=== PATIENT | female | born 1950 | race Caucasian/White ===

== ENCOUNTER 2020-03-11 05:16 | Emergency (ER) | payer MEDICARE, SELFPAY ==
[2020-03-11 05:42] VITALS: BP 110/79; PULSE 111; RESP 20; TEMP 37; O2SAT 96; BMI 23.2
--- NOTE | 2020-03-11 05:52 | XR_ITS ---
EXAMINATION: XR ANKLE, RIGHT XR FOOT, RIGHT CLINICAL INFORMATION: Pain and swelling, twisting injury COMPARISON: 11/02/2018 TECHNIQUE: 3 views of the right ankle. 3 views of the right foot. FINDINGS: Alignment throughout the ankle and foot is anatomic. No acute fracture is seen. No significant focal soft tissue abnormality identified. XR/XR ankle RT min 3V IMPRESSION: No acute findings identified in the right ankle or foot.
--- NOTE | 2020-03-11 05:52 | XR_ITS ---
EXAMINATION: XR ANKLE, RIGHT XR FOOT, RIGHT CLINICAL INFORMATION: Pain and swelling, twisting injury COMPARISON: 11/02/2018 TECHNIQUE: 3 views of the right ankle. 3 views of the right foot. FINDINGS: Alignment throughout the ankle and foot is anatomic. No acute fracture is seen. No significant focal soft tissue abnormality identified. XR/XR foot RT min 3V IMPRESSION: No acute findings identified in the right ankle or foot.
[2020-03-11 06:00] VITALS: BP 117/76; PULSE 104; RESP 16; O2SAT 95
--- NOTE | 2020-03-11 06:21 | ED_ITS ---
HPI - Extremity Injury (Lower) General Chief Complaint: Extremity Injury, Lower Stated Complaint: FOOT PAIN - RIGHT Time Seen by Provider: 03/11/20 05:52 Source: patient Mode of arrival: ambulatory Limitations: no limitations History of Present Illness HPI Narrative: 69-year-old female presented with right foot / ankle pain, patient twisted her right ankle about 2 weeks ago, pain is constant described it as dull aching pain, described as moderate pain, worsening with ambulation and bearing weight, relieved by rest, patient has no radiation, no other symptoms with the pain. Related Data Allergies Allergy/AdvReac Type Severity Reaction Status Date / Time prednisone [PREDNISONE] Allergy Mild HIVES Unverified 02/03/20 14:50 tramadol [TRAMADOL] Allergy Mild HIVES Unverified 02/03/20 14:50 penicillin G Allergy Unknown Verified 12/14/18 00:00 Penicillins [PENICILLINS] Allergy Unknown RASH Unverified 02/03/20 14:50 methylprednisolone AdvReac Unknown VOMITING Unverified 02/03/20 14:50 [METHYLPREDNISOLONE] Review of Systems Review of Systems: all other systems are reviewed and are negative Constitutional: Reports as per HPI and Reports no additional constitutional complaints Eyes: Reports as per HPI and Reports no additional eye complaints Reports system reviewed and no additional complaints, except as documented Cardiovascular: Reports as per HPI and Reports no additional cardiovascular complaints Respiratory: Reports as per HPI and Reports no additional respiratory complaints Gastrointestinal: Reports as per HPI and Reports no additional gastrointestinal complaints Genitourinary: Reports no additional female genitourinary complaints Musculoskeletal: Reports no additional musculoskeletal complaints Skin/Breast: Reports system reviewed and no additional complaints, except as docu Psychiatric: Reports no additional psychiatric complaints Endocrine: Reports no additional endocrine complaints Hematologic/Lymphatic: Reports no additional hematologic/lymphatic complaints Allergic/Immunologic: Reports no additional allergic/immunologic complaints Reports system reviewed and no additional complaints, except as documented and Reports Abnormal speech present [facility] Past Medical History Medical History (Updated 03/11/20 @ 06:38 by aRlph Mclean MD) Anxiety Depression Hx of herpes zoster virus Non-Hodgkin lymphoma in remission OCD (obsessive compulsive disorder) PTSD (post-traumatic stress disorder) Torn rotator cuff Social History Social History Advance Directives: No Advance Directives Information Provided: No Physical Exam Vital Signs: Vital Signs: Vital Signs Temp Pulse Resp BP Pulse Ox 10/24/20 05:42 98.6 F 111 H 20 110/79 96 Body Mass Index 23.2 vital signs have been reviewed as normal and appeared to be correct. Blood pressure normal. tachycardia . Respiration rate normal. Temperature normal. Oxygen saturation normal. Appearance: Alert. Oriented X3. No acute distress. Head: Normal external exam. Normocephalic. Atraumatic. No Parada signs noted. No raccoon eyes noted Eyes: PERRLA. EOMI. Conjunctiva and sclera normal. Eyelids normal. ENT: EAC normal. TM's Normal. Pharynx normal. Uvula midline. Moist mucous membranes. No trismus noted. No drooling noted. No muffled voice noted. Neck: Normal inspection. Neck supple. FROM. No adenopathy. Thyroid Normal. No meningeal signs. No neck mass noted. CVS: Normal heart rate and rhythm. Heart sound normal. No murmurs noted. Pulses normal throughout. Respiratory: No respiratory distress. Painless inspiration. Breath sounds normal. No wheezes/rales/rhonchi noted. Chest nontender. No accessory muscle usage noted or decreased air movement noted. Abdomen: Soft and nontender. Bowel sounds normal in all 4 quadrants. No distention noted. No organomegaly noted. No visible injury noted. Back: No CVA tenderness. Full range of motion noted. Skin: Skin warm and dry. Normal skin color. Normal skin turgor. No rashes/lesions/lacerations noted. Extremities: right leg/ankle exam normal neurovascular exam, slight tenderness over the lateral malleolus, mild swelling over the lateral malleolus. Neuro: Oriented X 3. No motor deficit. No sensory deficit. Reflexes normal. Course Course Course Narrative: Two weeks of right ankle/ foot pain after twisting the ankle. Get x-ray. MDM - Extremity Injury (Lower) [facility] Narrative Medical decision making narrative: Assessment and plan. Right foot/ankle pain for 2 weeks after twisting the foot, negative x-ray for acute injury. Will discharge home to follow with PCP apply ice, NSAIDs if needed. Imaging Data Right ankle /foot x-ray : My impression: no acute pathology. Discharge Plan Discharge Clinical Impression: Ankle sprain and strain Patient Disposition: Home, Self-Care Instructions: Ankle Sprain (ED) Referrals: Terrie Boyer MD [Primary Care Provider] - 2 days Chris Kaba MD [Physician] - 10 days
== END 2020-03-11 07:06 | disposition home or self-care (01) ==
PROVIDERS: Emergency Provider Emergency Medicine; PCP Family Medicine
DX: S93.401A Sprain of unspecified ligament of right ankle, initial encounter (principal); M79.671 Pain in right foot; X50.1XXA Overexertion from prolonged static or awkward postures, initial encounter; Y93.01 Activity, walking, marching and hiking; Y92.009 Unspecified place in unspecified non-institutional (private) residence as the place of occurrence of the external cause
CPT/HCPCS: 73610; 73630; 99283

== ENCOUNTER 2020-12-20 06:31 | Outpatient (REF) | payer MEDICARE, SELFPAY ==
--- NOTE | ~2020-12-20 | XR_ITS ---
EXAMINATION: XR HIP, RIGHT CLINICAL INFORMATION: Unilateral primary osteoarthritis right hip. COMPARISON: None TECHNIQUE: Two views of the right hip. AP view pelvis. FINDINGS: AP view pelvis and right hip: There is severe loss of right hip joint space with deformity of right femoral head almost absorbed from osteonecrosis. There is secondary degenerative osteoarthritis and spurring. No fracture or dislocation seen involving the pelvis or the hip joints. The soft tissues are normal. 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 There is secondary degenerative osteoarthritis and spurring. The left hip joint space and SI joints are normal.
== END 2020-12-20 06:32 | disposition home or self-care (01) ==
LOC: HO.XRAY 06:31
PROVIDERS: Visit Provider Physical Medicine & Rehabilitation
DX: M16.11 Unilateral primary osteoarthritis, right hip (principal)
CPT/HCPCS: 73502

== ENCOUNTER 2021-11-17 10:46 | Inpatient (IN) | payer OTHER, SELFPAY ==
--- NOTE | ~2021-11-17 | XR_ITS ---
EXAMINATION: XR RIBS, LEFT CLINICAL INFORMATION: Left rib pain status post injury. COMPARISON: Chest radiographs dated 05/02/2019. TECHNIQUE: 3 views of the left ribs were obtained. A skin marker was placed overlying of the inferior left ribs. FINDINGS: Lungs are clear. No consolidation, pneumothorax, or pleural effusion. The cardiomediastinal silhouette and pulmonary vasculature are normal. Osseous structures are unremarkable. Ribs are intact. No fractures are identified. XR/XR ribs LT min 3V w CXR1V IMPRESSION: Unremarkable examination.
--- NOTE | ~2021-11-17 | XR_ITS ---
EXAMINATION: XR HIP, RIGHT CLINICAL INFORMATION: Pain status post surgery COMPARISON: Pelvis and right hip radiographs 12/20/2020 TECHNIQUE: AP pelvis, 2 views of the right hip. FINDINGS: Status post right total hip arthroplasty with cemented femoral stem. No cement fracture, significant periprosthetic radiolucency, periprosthetic fracture, or dislocation. Femoral head component is centrally positioned within the acetabular cup. Left hip joint space is maintained with mild subchondral sclerosis, small marginal osteophytes and chondrocalcinosis. Additional chondrocalcinosis at the pubic symphysis. Sacroiliac joints are congruent and intact. Disc degenerative change and facet arthrosis in the lower lumbar spine noted. XR/XR hip RT w [id number] IMPRESSION: 1. Status post right total hip arthroplasty without radiographic evidence of complication. 2. Mild left hip joint osteoarthritis. 3. Chondrocalcinosis.
--- NOTE | ~2021-11-17 | FL_ITS ---
EXAMINATION: FL BARIUM SWALLOW CLINICAL INFORMATION: Dysphagia COMPARISON: None TECHNIQUE: The patient was administered thick liquid barium and effervescent granules only. The patient could not continue with the procedure due to nausea. Imaging of the esophagus in the prone position was not performed and barium tablet was not given. Fluoroscopy time: 0.3 minutes DAP: 0.4 Gycm2 Images: 29 FINDINGS: The swallowing mechanism is normal. No aspiration or penetration is seen. Limited evaluation of the esophagus is unremarkable. The distal thoracic esophagus and GE junction were not optimally evaluated. Esophageal motility appears normal. Evaluation for reflux was not performed. FL/FL barium swallow IMPRESSION: Incomplete exam. Patient could not tolerate exam due to nausea. No abnormality is seen.
--- NOTE | ~2021-11-17 | MR_ITS ---
MRI OF THE BRAIN WITHOUT IV CONTRAST INDICATION: Periods of confusion. Endocrine abnormalities. COMPARISON: Head CT 05/02/2019. TECHNIQUE: Multiplanar multisequence MR imaging of the brain was obtained without IV contrast. FINDINGS: Nondiagnostic for pituitary lesions as the patient refused contrast for this study. Pituitary gland is small in size and there is no sellar/suprasellar mass effect. No mass effect on the optic nerve apparatus. There is mild chronic microangiopathy. There is no hydrocephalus, extra-axial surface collection, or herniation. The major flow voids at the skull base are preserved. There is no acute infarct on diffusion-weighted imaging. The midline structures are normal. The cerebellar tonsils are normally positioned. The cerebellum and brainstem are normal. The craniocervical junction is normal. Osseous marrow signal intensity is homogenous. The visualized soft tissues are unremarkable. MR/MR head/brain wo con IMPRESSION: - Nondiagnostic for pituitary lesions as the patient refused contrast for this study. Pituitary gland is small in size and there is no sellar/suprasellar mass effect. - No acute intracranial findings. There is mild chronic microangiopathy.
[2021-11-17 11:47] VITALS: BP 144/58; PULSE 119; RESP 16; TEMP 36.7; O2SAT 96; BMI 26.2
--- NOTE | 2021-11-17 11:48 | ED_ITS ---
HPI - Psych General Chief Complaint: Psychiatric Symptoms <Mayuri Horvath NP - Last Filed: 11/17/21 20:40> Stated Complaint: CRISIS <Mayuri Horvath NP - Last Filed: 11/17/21 20:40> Time Seen by Provider: 11/17/21 11:07 <Mayuri Horvath NP - Last Filed: 11/17/21 20:40> Source: patient and EMS <Mayuri Horvath NP - Last Filed: 11/17/21 20:40> Mode of arrival: EMS <Mayuri Horvath NP - Last Filed: 11/17/21 20:40> Limitations: no limitations <Mayuri Horvath NP - Last Filed: 11/17/21 20:40> History of Present Illness HPI Narrative: 70-year-old female with a history of anxiety, OCD, phobias here with reports of being sent in for crisis evaluation by her psychiatrist Dr. Trna. Patient tells me she has not left her house in 1 yr. she tells me she is afraid of being out in public and people may think about her and her physical appearance. She reports anxiety. No depression, homicidal ideations or hallucinations. No substance abuse history. Patient reports 2 weeks ago she did fall striking her left ribs on a plaster statue in her house. Since then she has had some pain over the ribs. She also reports some pain over her right hip at the place of her hip replacement. No falls or injuries to the hip. <Manny Horvath NP - Last Filed: 11/17/21 20:40> Related Data Home Medications: Home Medications Medication Instructions Recorded Confirmed acetaminophen 500 mg tablet 1,000 mg PO BEDTIME 11/17/21 11/17/21 amitriptyline 50 mg tablet 1 tab PO BEDTIME 11/17/21 11/17/21 clonazepam 1 mg tablet 0.5 tab PO DAILY 11/17/21 11/17/21 clonazepam 1 mg tablet 1 mg PO BEDTIME 11/17/21 11/17/21 docusate sodium 100 mg capsule 300 mg PO BID 11/17/21 11/17/21 duloxetine 60 mg capsule,delayed 1 cap PO BID 11/17/21 11/17/21 release estradiol 0.025 mg/24 hr weekly 1 patch topical QWEEK 11/17/21 11/17/21 transdermal patch fentanyl 25 mcg/hr transdermal 1 patch topical Q3D 11/17/21 11/17/21 patch gabapentin 100 mg capsule 1 cap PO TID 11/17/21 11/17/21 hydroxyzine HCl 25 mg tablet 1 tab PO BID@0800,1200 11/17/21 11/17/21 ipratropium 20 mcg-albuterol 100 1 puff inhalation QID 11/17/21 11/17/21 mcg/actuation mist for inhalation (Combivent Respimat) levothyroxine 100 mcg tablet 1 tab PO DAILY 11/17/21 11/17/21 liothyronine 25 mcg tablet 1 tab PO BID@0800,1200 11/17/21 11/17/21 metoclopramide HCl 10 mg tablet 1 tab PO Q48H 11/17/21 11/17/21 modafinil 200 mg tablet 1 tab PO BID@0800,1200 11/17/21 11/17/21 omeprazole 40 mg capsule,delayed 1 cap PO DAILY 11/17/21 11/17/21 release oxycodone-acetaminophen 5 mg-325 0.5 tab PO TID 11/17/21 11/17/21 mg tablet polyethylene glycol 3350 17 17 g PO DAILY 11/17/21 11/17/21 gram/dose oral powder (Gavilax) quetiapine 25 mg tablet 1 tab PO BID@0800,1200 11/17/21 11/17/21 quetiapine 50 mg tablet 1 tab PO BEDTIME 11/17/21 11/17/21 trazodone 100 mg tablet 1 tab PO BEDTIME 11/17/21 11/17/21 <Mayuri Horvath, MACHINE DESIGN TEACHER - Last Filed: 11/17/21 20:40> Allergies/Adverse Reactions: Allergies Allergy/AdvReac Type Severity Reaction Status Date / Time prednisone [PREDNISONE] Allergy Mild HIVES Unverified 02/03/20 14:50 tramadol [TRAMADOL] Allergy Mild HIVES Unverified 02/03/20 14:50 penicillin G Allergy Unknown Verified 12/14/18 00:00 Penicillins [PENICILLINS] Allergy Unknown RASH Unverified 02/03/20 14:50 methylprednisolone AdvReac Unknown VOMITING Unverified 02/03/20 14:50 [METHYLPREDNISOLONE] <Mayuri Horvath NP - Last Filed: 11/17/21 20:40> Review of Systems Review of Systems: Yes all other systems are reviewed and are negative <Mayuri Horvath NP - Last Filed: 11/17/21 20:40> Constitutional: Constitutional: Reports no additional constitutional complaints, Denies body ache(s), Denies chills, Denies fever(s), Denies headache(s) and Denies weakness <Mayuri Horvath NP - Last Filed: 11/17/21 20:40> Eyes: Eyes: Reports no additional eye complaints and Denies change in vision <Mayuri Horvath NP - Last Filed: 11/17/21 20:40> ENT: Reports system reviewed and no additional complaints, except as documented, Denies dizziness, Denies headache(s), Denies nasal congestion, Denies nasal discharge and Denies neck pain <Mayuri Horvath NP - Last Filed: 11/17/21 20:40> Cardiovascular: Cardiovascular: Reports no additional cardiovascular complaints, Reports chest pain, Denies leg edema and Denies dyspnea <Mayuri Horvath NP - Last Filed: 11/17/21 20:40> Respiratory: Respiratory: Reports no additional respiratory complaints, Denies cough and Denies dyspnea <Mayuri Horvath NP - Last Filed: 11/17/21 20:40> Gastrointestinal: Gastrointestinal: Reports no additional gastrointestinal complaints, Denies abdominal pain, Denies diarrhea, Denies nausea and Denies vomiting <Mayuri Horvath NP - Last Filed: 11/17/21 20:40> Genitourinary: Genitourinary: Reports no additional female genitourinary complaints and Denies urinary incontinence <Mayuri Horvath NP - Last Filed: 11/17/21 20:40> Musculoskeletal: Musculoskeletal: Reports no additional musculoskeletal complaints, Denies back pain, Reports arthralgias, Denies joint swelling, Denies neck pain, Denies numbness and Denies tingling <Mayuri Horvath NP - Last Filed: 11/17/21 20:40> Integumentary/Breasts: Skin/Breast: Reports system reviewed and no additional complaints, except as docu and Denies rash <Mayuri Horvath NP - Last Filed: 11/17/21 20:40> Neurologic: Reports system reviewed and no additional complaints, except as documented, Denies Abnormal speech present, Denies dizziness, Denies headache(s), Denies numbness, Denies tingling and Denies weakness <Mayuri Horvath NP - Last Filed: 11/17/21 20:40> Psychiatric: Psychiatric: Reports anxiety, Denies depression, Denies homicidal ideation and Denies suicidal ideation <Mayuri Horvath NP - Last Filed: 11/17/21 20:40> [facility] Past Medical History Attestation statement: The following information was validated with the patient. <Mayuri Horvath NP - Last Filed: 11/17/21 20:40> Source: old records reviewed and nursing notes reviewed <Mayuri Horvath NP - Last Filed: 11/17/21 20:40> Medical History: Medical History Anxiety Depression Hx of herpes zoster virus Non-Hodgkin lymphoma in remission OCD (obsessive compulsive disorder) PTSD (post-traumatic stress disorder) Torn rotator cuff <Mayuri Horvath NP - Last Filed: 11/17/21 20:40> Social History Social History: Social History Advance Directives: No Advance Directives Information Provided: Yes Healthcare Proxy: Yes (Shelia Ludwig (friend) [phone]) Guardian: No <Mayuri Horvath NP - Last Filed: 11/17/21 20:40> Physical Exam Vital Signs: Vital Signs: Last Vital Signs Temp 98.1 F 11/17/21 11:47 Pulse 119 H 11/17/21 11:47 Resp 16 11/17/21 11:47 BP 144/58 H 11/17/21 11:47 Pulse Ox 96 11/17/21 11:47 O2 Del Method 11/17/21 11:47 BMI result Body Mass Index 26.2 <Mayuri Horvath NP - Last Filed: 11/17/21 20:40> Vital Signs: Last Vital Signs Temp 98.1 F 11/17/21 11:47 Pulse 119 H 11/17/21 11:47 Resp 16 11/17/21 11:47 BP 144/58 H 11/17/21 11:47 Pulse Ox 96 11/17/21 11:47 O2 Del Method 11/17/21 11:47 BMI result Body Mass Index 26.2 <DANTE Pereyra - Last Filed: 11/17/21 21:39> Const: Other: Disheveled appearance <Mayuri Horvath NP - Last Filed: 11/17/21 20:40> General: alert <Mayuri Horvath NP - Last Filed: 11/17/21 20:40> Orientation/consciousness: patient oriented x3 <Mayuri Horvath NP - Last Filed: 11/17/21 20:40> Limitations: no limitations <Mayuri Horvath NP - Last Filed: 11/17/21 20:40> HEENT: Head: Yes normal to inspection <Mayuri Horvath NP - Last Filed: 11/17/21 20:40> Ears: hearing grossly normal bilaterally <Mayuri Horvath NP - Last Filed: 11/17/21 20:40> General nose exam: Normal external nose present <Mayuri Horvath NP - Last Filed: 11/17/21 20:40> Face and sinus: Yes normal facial exam <Mayuri Horvath NP - Last Filed: 11/17/21 20:40> Mouth: Normal oral and palatal mucosa present <Mayuri Horvath NP - Last Filed: 11/17/21 20:40> Throat: Yes posterior oropharynx normal <Mayuri Horvath NP - Last Filed: 11/17/21 20:40> Eyes: General: appearance normal, both eyes and all related structures <Mayuri Horvath NP - Last Filed: 11/17/21 20:40> Pupils: Equal, round and reactive pupils present <Mayuri Horvath NP - Last Filed: 11/17/21 20:40> Neck: Neck: Yes normal visual inspection <Mayuri Horvath NP - Last Filed: 11/17/21 20:40> Chest: Other: tenderness the left lateral chest wall with no crepitus or hematoma there is a deformity to the left breast that patient tells me is from an injury greater > 20 years ago <Mayuri Horvath NP - Last Filed: 11/17/21 20:40> Chest palpation & inspection: normal inspection of the chest <Mayuri Horvath NP - Last Filed: 11/17/21 20:40> Resp: Effort & Inspection: normal respiratory effort <Mayuri Horvath NP - Last Filed: 11/17/21 20:40> Auscultation: clear to auscultation bilaterally <Mayuri Horvath NP - Last Filed: 11/17/21 20:40> Cardio: Rate: regular rate <Mayuri Horvath NP - Last Filed: 11/17/21 20:40> Rhythm: regular rhythm <Mayuri Horvath NP - Last Filed: 11/17/21 20:40> Peripheral pulses: Peripheral pulses 2+ throughout <Mayuri Horvath NP - Last Filed: 11/17/21 20:40> GI: Inspection: Yes normal to inspection <JOSE D Reardon Last Filed: 11/17/21 20:40> Palpation (GI): Soft to palpation and nontender <Mayuri Horvath NP - Last Filed: 11/17/21 20:40> Auscultation: normal bowel sounds <Mayuri Horvath NP - Last Filed: 11/17/21 20:40> Back/Spine/Pelvis: Thoracic/Lumbar Spine: thoracic and lumbar spine normal to inspection <JOSE D Reardon Last Filed: 11/17/21 20:40> Skin: General skin exam: no rashes or lesions noted <JOSE D Reardon Last Filed: 11/17/21 20:40> Neuro: Other: Very anxious-perseverating <Mayuri Horvath NP - Last Filed: 11/17/21 20:40> General: patient oriented x3, no focal motor deficits and normal sensation to monofilament <Mayuri Horvath NP - Last Filed: 11/17/21 20:40> Cranial nerves: Yes CN's II-XII intact bilaterally and Yes Equal, round and reactive pupils present <Mayuri Horvath NP - Last Filed: 11/17/21 20:40> Cognition (Neuro): normal cognition <Mayuri Horvath NP - Last Filed: 11/17/21 20:40> Speech: No Abnormal speech present <JOSE D Reardon Last Filed: 11/17/21 20:40> Gait exam (Neuro): Normal gait present <Mayuri Horvath NP - Last Filed: 11/17/21 20:40> Motor exam (neuro): 5/5 motor strength present throughout <Mayuri Horvath NP - Last Filed: 11/17/21 20:40> Extrem: Other: to the right lateral hip there is a previous surgical incision site noted which is healed. There is some mild tenderness noted over the site. There is full range of motion of the hip. <JOSE D Reardon Last Filed: 11/17/21 20:40> General: Yes normal to inspection <Mayuri Horvath NP - Last Filed: 11/17/21 20:40> Course Course Course Narrative: I reviewed the labs which show microcytic anemia. No previous CBC to compare to since 2019. Unsure if this is acute or chronic. Patient is not currently taking any iron supplementation. She tells me that she has been aware of this for the last few months and has been seeing a Dr. Worthy at [facility]. She has not have a primary care doctor. This appears to be [facility]. She tells me that he has also been seeing her for her thyroid but she is not currently on any medication. Very difficult to obtain any clear sequential history from the patient. No active bleeding or reports of recent bleeding. Will check occult stool. TSH <0.01. Will add free T4. Attempt to get endocrine notes <Mayuri Horvath NP - Last Filed: 11/17/21 20:40> Reevaluation(s) Reevaluation #1: I spoke to the chemistry department. The patient's free T4 is 0.70. I did obtain labs from [facility]. Her TSH on 09/15/2021 was <0.01 Her free T4 was 0.70. They do not have any recent CBC's available for the patient. On rectal exam unable to obtain stool for occult x 2 attempts. Patient reports she has had brown stools although hard and suffering from constipation despite colace and miralax. Likely RADHA. Nursing did inform patient is requesting soft diet as she has intermittent difficulty swallowing. I spoke to patient. She tells me in August she had an upper endoscopy and had an esophageal stricture which required dilation. She has follow-up with them upcoming. She is tolerating soft foods here with no difficulty. <Mayuri Horvath NP - Last Filed: 11/17/21 20:40> Time: 14:45 <Mayuri Horvath NP - Last Filed: 11/17/21 20:40> Reevaluation #2: x-ray show no acute finding. I did speak to Natalie the psychiatric nurse practitioner. At this point I do not feel that patient needs a admission for medical management. She can be admitted to psychiatric unit and have medicine consult. Natalie and I discussed the patient's labs and she is agreeable to this. Place in physicIAN observation pending disposition medications reconciled. it is my understanding patient to be admitted to [facility] here at [facility] <Mayuri Horvath NP - Last Filed: 11/17/21 20:40> Time: 16:45 <Mayuri Horvath NP - Last Filed: 11/17/21 20:40> Reevaluation #3: Patient will be going to [facility]. Dx PTSD, OCD, MDD <DANTE Pereyra - Last Filed: 11/17/21 21:39> MDM - Psych MDM Narrative Medical decision making narrative: 70 yo female with social phobias, anxiety, OCD here for psych eval. Compla ints of left rib pain from injury 2 weeks ago. Will check x-rays. Also c/o right hip pain with no known injury but does have previous hip replacement. Will check x-rays. Patient has not seen a doctor in about a year. She does tell me she has underlying anemia and thyroid disease not take any medication. Will check labs, drug screen. Once medically cleared will need psych input <Mayuri Horvath NP - Last Filed: 11/17/21 20:40> Medical Records Attestation: I reviewed the patient's medical records. <Mayuri Horvath NP - Last Filed: 11/17/21 20:40> Lab Data Attestation: I reviewed the patient's lab results. <Mayuri Horvath NP - Last Filed: 11/17/21 20:40> Result diagrams: : 11/17/21 12:46 11/17/21 12:46 <Mayuri Horvath NP - Last Filed: 11/17/21 20:40> Labs: Lab Results 11/17/21 11/17/21 11/17/21 Range/Units 12:33 12:46 12:46 WBC 6.3 (4.8-10.8) X10*3/uL RBC 3.05 L (4.20-5.50) X10*6/uL Hgb 7.3 L (12.0-16.0) g/dl Hct 24.3 L (37.0-47.0) % MCV 79.7 L (80.0-98.0) fL MCH 23.9 L (27.0-33.0) pg MCHC 30.0 L (31.0-35.0) g/dl RDW 17.8 H (11.0-16.0) % Plt Count 340 (160-400) X10*3/uL MPV 9.0 L (9.4-12.3) fL Immature Gran % (Auto) 0.3 (0.0-0.4) % Neut % (Auto) 48.1 (45-73) % Lymph % (Auto) 37.4 (20-40) % Parke % (Auto) 7.8 (2-11) % Eos % (Auto) 6.2 H (0-4) % Baso % (Auto) 0.2 (0-2) % Lymph # (Auto) 2.4 (1.2-4.9) X10*3/uL Parke # (Auto) 0.5 (0.1-1.2) X10*3/uL Eos # (Auto) 0.4 (0.0-0.4) X10*3/uL Baso # (Auto) 0.0 (0.0-0.2) X10*3/uL Abs Immat Gran (auto) 0.02 (0.00-0.03) X10*3/uL Absolute Neuts (auto) 3.0 (2.0-8.3) x10*3/uL Absolute Nucleated RBC 0.000 (0.0-0.012) X10*3/uL Nucleated RBC % (auto) 0.0 (0.0-0.2) /100WBC Sodium 137 (135-145) mmol/L Potassium 4.1 (3.3-5.1) mmol/L Chloride 106 (96-108) mmol/L Carbon Dioxide 25 (22-29) mmol/L Anion Gap 10 L (12-20) BUN 19 H (9-16) mg/dL Creatinine 0.83 (0.5-1.4) mg/dL Estim Creat Clear Calc 56.6 Estimated GFR > 60 Random Glucose 103 (60-115) mg/dL Calcium 8.5 (8.4-10.2) mg/dL Total Bilirubin < 0.2 (0.0-1.0) mg/dL Direct Bilirubin < 0.2 (0.0-0.5) mg/dL AST 9 (5-31) U/L ALT 7 (0-31) U/L Alkaline Phosphatase 164 H (39-117) U/L Total Protein 6.2 L (6.5-8.0) g/dL Albumin 3.7 (3.5-5.0) g/dL TSH < 0.01 L (0.32-4.0) uIU/mL Free T4 0.70 L (0.71-1.85) ng/dL Urine Color Urine Appearance Urine pH (5.0-8.0) Ur Specific [place] (1.005-1.025) Urine Protein (NEG-TRACE) MG/DL Urine Glucose (UA) (NEG) MG/DL Urine Ketones (NEG) MG/DL Urine Blood (NEG) Urine Nitrite (NEG) Ur Leukocyte Esterase (NEG) Stool Occult Blood Salicylates < 5.0 L (15-30) mg/dL Urine Opiates Screen (Not Detect) Urine Fentanyl Screen (Not Detect) Acetaminophen 1 (<30) mcg/mL Ur Barbiturates Screen (Not Detect) Ur Phencyclidine Scrn (Not Detect) Ur Amphetamines Screen (Not Detect) U Benzodiazepines Scrn (Not Detect) Urine Cocaine Screen (Not Detect) U Marijuana (THC) Screen (Not Detect) Ethyl Alcohol < 10 mg/dL COVID-19 (YASMANI) Negative (Negative) COVID-19 Clin Com See Note 11/17/21 11/17/21 11/17/21 Range/Units 14:49 14:49 14:57 WBC (4.8-10.8) X10*3/uL RBC (4.20-5.50) X10*6/uL Hgb (12.0-16.0) g/dl Hct (37.0-47.0) % MCV (80.0-98.0) fL MCH (27.0-33.0) pg MCHC (31.0-35.0) g/dl RDW (11.0-16.0) % Plt Count (160-400) X10*3/uL MPV (9.4-12.3) fL Immature Gran % (Auto) (0.0-0.4) % Neut % (Auto) (45-73) % Lymph % (Auto) (20-40) % Parke % (Auto) (2-11) % Eos % (Auto) (0-4) % Baso % (Auto) (0-2) % Lymph # (Auto) (1.2-4.9) X10*3/uL Parke # (Auto) (0.1-1.2) X10*3/uL Eos # (Auto) (0.0-0.4) X10*3/uL Baso # (Auto) (0.0-0.2) X10*3/uL Abs Immat Gran (auto) (0.00-0.03) X10*3/uL Absolute Neuts (auto) (2.0-8.3) x10*3/uL Absolute Nucleated RBC (0.0-0.012) X10*3/uL Nucleated RBC % (auto) (0.0-0.2) /100WBC Sodium (135-145) mmol/L Potassium (3.3-5.1) mmol/L Chloride (96-108) mmol/L Carbon Dioxide (22-29) mmol/L Anion Gap (12-20) BUN (9-16) mg/dL Creatinine (0.5-1.4) mg/dL Estim Creat Clear Calc Estimated GFR Random Glucose (60-115) mg/dL Calcium (8.4-10.2) mg/dL Total Bilirubin (0.0-1.0) mg/dL Direct Bilirubin (0.0-0.5) mg/dL AST (5-31) U/L ALT (0-31) U/L Alkaline Phosphatase (39-117) U/L Total Protein (6.5-8.0) g/dL Albumin (3.5-5.0) g/dL TSH (0.32-4.0) uIU/mL Free T4 (0.71-1.85) ng/dL Urine Color YELLOW Urine Appearance CLEAR Urine pH 6.0 (5.0-8.0) Ur Specific [place] 1.015 (1.005-1.025) Urine Protein NEG (NEG-TRACE) MG/DL Urine Glucose (UA) NEG (NEG) MG/DL Urine Ketones NEG (NEG) MG/DL Urine Blood NEG (NEG) Urine Nitrite NEG (NEG) Ur Leukocyte Esterase NEG (NEG) Stool Occult Blood TNP Salicylates (15-30) mg/dL Urine Opiates Screen Not Detected (Not Detect) Urine Fentanyl Screen POSITIVE H (Not Detect) Acetaminophen (<30) mcg/mL Ur Barbiturates Screen Not Detected (Not Detect) Ur Phencyclidine Scrn Not Detected (Not Detect) Ur Amphetamines Screen Not Detected (Not Detect) U Benzodiazepines Scrn POSITIVE H (Not Detect) Urine Cocaine Screen Not Detected (Not Detect) U Marijuana (THC) Screen Not Detected (Not Detect) Ethyl Alcohol mg/dL COVID-19 (YASMANI) (Negative) COVID-19 Clin Com <Mayuri Horvath NP - Last Filed: 11/17/21 20:40> Lab Results 11/17/21 11/17/21 11/17/21 Range/Units 12:33 12:46 12:46 WBC 6.3 (4.8-10.8) X10*3/uL RBC 3.05 L (4.20-5.50) X10*6/uL Hgb 7.3 L (12.0-16.0) g/dl Hct 24.3 L (37.0-47.0) % MCV 79.7 L (80.0-98.0) fL MCH 23.9 L (27.0-33.0) pg MCHC 30.0 L (31.0-35.0) g/dl RDW 17.8 H (11.0-16.0) % Plt Count 340 (160-400) X10*3/uL MPV 9.0 L (9.4-12.3) fL Immature Gran % (Auto) 0.3 (0.0-0.4) % Neut % (Auto) 48.1 (45-73) % Lymph % (Auto) 37.4 (20-40) % Parke % (Auto) 7.8 (2-11) % Eos % (Auto) 6.2 H (0-4) % Baso % (Auto) 0.2 (0-2) % Lymph # (Auto) 2.4 (1.2-4.9) X10*3/uL Parke # (Auto) 0.5 (0.1-1.2) X10*3/uL Eos # (Auto) 0.4 (0.0-0.4) X10*3/uL Baso # (Auto) 0.0 (0.0-0.2) X10*3/uL Abs Immat Gran (auto) 0.02 (0.00-0.03) X10*3/uL Absolute Neuts (auto) 3.0 (2.0-8.3) x10*3/uL Absolute Nucleated RBC 0.000 (0.0-0.012) X10*3/uL Nucleated RBC % (auto) 0.0 (0.0-0.2) /100WBC Sodium 137 (135-145) mmol/L Potassium 4.1 (3.3-5.1) mmol/L Chloride 106 (96-108) mmol/L Carbon Dioxide 25 (22-29) mmol/L Anion Gap 10 L (12-20) BUN 19 H (9-16) mg/dL Creatinine 0.83 (0.5-1.4) mg/dL Estim Creat Clear Calc 56.6 Estimated GFR > 60 Random Glucose 103 (60-115) mg/dL Calcium 8.5 (8.4-10.2) mg/dL Total Bilirubin < 0.2 (0.0-1.0) mg/dL Direct Bilirubin < 0.2 (0.0-0.5) mg/dL AST 9 (5-31) U/L ALT 7 (0-31) U/L Alkaline Phosphatase 164 H (39-117) U/L Total Protein 6.2 L (6.5-8.0) g/dL Albumin 3.7 (3.5-5.0) g/dL TSH < 0.01 L (0.32-4.0) uIU/mL Free T4 0.70 L (0.71-1.85) ng/dL Urine Color Urine Appearance Urine pH (5.0-8.0) Ur Specific [place] (1.005-1.025) Urine Protein (NEG-TRACE) MG/DL Urine Glucose (UA) (NEG) MG/DL Urine Ketones (NEG) MG/DL Urine Blood (NEG) Urine Nitrite (NEG) Ur Leukocyte Esterase (NEG) Stool Occult Blood Salicylates < 5.0 L (15-30) mg/dL Urine Opiates Screen (Not Detect) Urine Fentanyl Screen (Not Detect) Acetaminophen 1 (<30) mcg/mL Ur Barbiturates Screen (Not Detect) Ur Phencyclidine Scrn (Not Detect) Ur Amphetamines Screen (Not Detect) U Benzodiazepines Scrn (Not Detect) Urine Cocaine Screen (Not Detect) U Marijuana (THC) Screen (Not Detect) Ethyl Alcohol < 10 mg/dL COVID-19 (YASMANI) Negative (Negative) COVID-19 Clin Com See Note 11/17/21 11/17/21 11/17/21 Range/Units 14:49 14:49 14:57 WBC (4.8-10.8) X10*3/uL RBC (4.20-5.50) X10*6/uL Hgb (12.0-16.0) g/dl Hct (37.0-47.0) % MCV (80.0-98.0) fL MCH (27.0-33.0) pg MCHC (31.0-35.0) g/dl RDW (11.0-16.0) % Plt Count (160-400) X10*3/uL MPV (9.4-12.3) fL Immature Gran % (Auto) (0.0-0.4) % Neut % (Auto) (45-73) % Lymph % (Auto) (20-40) % Parke % (Auto) (2-11) % Eos % (Auto) (0-4) % Baso % (Auto) (0-2) % Lymph # (Auto) (1.2-4.9) X10*3/uL Parke # (Auto) (0.1-1.2) X10*3/uL Eos # (Auto) (0.0-0.4) X10*3/uL Baso # (Auto) (0.0-0.2) X10*3/uL Abs Immat Gran (auto) (0.00-0.03) X10*3/uL Absolute Neuts (auto) (2.0-8.3) x10*3/uL Absolute Nucleated RBC (0.0-0.012) X10*3/uL Nucleated RBC % (auto) (0.0-0.2) /100WBC Sodium (135-145) mmol/L Potassium (3.3-5.1) mmol/L Chloride (96-108) mmol/L Carbon Dioxide (22-29) mmol/L Anion Gap (12-20) BUN (9-16) mg/dL Creatinine (0.5-1.4) mg/dL Estim Creat Clear Calc Estimated GFR Random Glucose (60-115) mg/dL Calcium (8.4-10.2) mg/dL Total Bilirubin (0.0-1.0) mg/dL Direct Bilirubin (0.0-0.5) mg/dL AST (5-31) U/L ALT (0-31) U/L Alkaline Phosphatase (39-117) U/L Total Protein (6.5-8.0) g/dL Albumin (3.5-5.0) g/dL TSH (0.32-4.0) uIU/mL Free T4 (0.71-1.85) ng/dL Urine Color YELLOW Urine Appearance CLEAR Urine pH 6.0 (5.0-8.0) Ur Specific [place] 1.015 (1.005-1.025) Urine Protein NEG (NEG-TRACE) MG/DL Urine Glucose (UA) NEG (NEG) MG/DL Urine Ketones NEG (NEG) MG/DL Urine Blood NEG (NEG) Urine Nitrite NEG (NEG) Ur Leukocyte Esterase NEG (NEG) Stool Occult Blood TNP Salicylates (15-30) mg/dL Urine Opiates Screen Not Detected (Not Detect) Urine Fentanyl Screen POSITIVE H (Not Detect) Acetaminophen (<30) mcg/mL Ur Barbiturates Screen Not Detected (Not Detect) Ur Phencyclidine Scrn Not Detected (Not Detect) Ur Amphetamines Screen Not Detected (Not Detect) U Benzodiazepines Scrn POSITIVE H (Not Detect) Urine Cocaine Screen Not Detected (Not Detect) U Marijuana (THC) Screen Not Detected (Not Detect) Ethyl Alcohol mg/dL COVID-19 (YASMANI) (Negative) COVID-19 Clin Com <DANTE Pereyra - Last Filed: 11/17/21 21:39> Discharge Plan Discharge Clinical Impression: Acute anxiety, OCD (obsessive compulsive disorder), Anemia <Mayuri Horvath NP - Last Filed: 11/17/21 20:40> Patient Disposition: Admitted As Inpatient <Mayuri Horvath NP - Last Filed: 11/17/21 20:40>
[2021-11-17 12:52] LABS: MANUAL DIFF FLAG NO
[2021-11-17 12:56] LABS: Basophils Percent Auto 0.2 % (0-2); Eosinophils Absolute Auto 0.4 X10*3/uL (0.0-0.4); Eosinophils Percent Auto 6.2 % (0-4); Hematocrit 24.3 % (37.0-47.0); Hemoglobin 7.3 g/dl (12.0-16.0); Imm Gran Abs Auto 0.02 X10*3/uL (0.00-0.03); Imm Gran Pct Auto 0.3 % (0.0-0.4); Lymphocytes Absolute Auto 2.4 X10*3/uL (1.2-4.9); Lymphocytes Percent Auto 37.4 % (20-40); Mean Corpuscular Hemoglobin 23.9 pg (27.0-33.0); Mean Corpuscular Volume 79.7 fL (80.0-98.0); Monocytes Absolute Auto 0.5 X10*3/uL (0.1-1.2); Monocytes Percent Auto 7.8 % (2-11); Neutrophils Percent Auto 48.1 % (45-73); Platelet Count 340 X10*3/uL (160-400); Red Blood Count 3.05 X10*6/uL (4.20-5.50); Red Cell Distribution Width 17.8 % (11.0-16.0); White Blood Count 6.3 X10*3/uL (4.8-10.8)
[2021-11-17 13:09] LABS: COVID-19 Test Negative (Negative); IDNOW Serial# 9DB6401D
[2021-11-17 13:22] LABS: Acetaminophen LAB 1 mcg/mL (<30); Alanine Aminotransferase 7 U/L (0-31); Albumin Level 3.7 g/dL (3.5-5.0); Alkaline Phosphatase 164 U/L (39-117); Anion Gap 10 (12-20); Aspartate Amino Transferase 9 U/L (5-31); Bilirubin Direct < 0.2 mg/dL (0.0-0.5); Bilirubin Total < 0.2 mg/dL (0.0-1.0); Blood Urea Nitrogen 19 mg/dL (9-16); Calcium 8.5 mg/dL (8.4-10.2); Carbon Dioxide 25 mmol/L (22-29); Chloride 106 mmol/L (96-108); Creatinine Clr Calc Pharmacy 56.6; Estimated Glomerular Filt Rate > 60; Ethanol < 10 mg/dL; Glucose Random 103 mg/dL (60-115); Potassium 4.1 mmol/L (3.3-5.1); Salicylate < 5.0 mg/dL (15-30); Sodium 137 mmol/L (135-145); Total Protein 6.2 g/dL (6.5-8.0)
--- NOTE | 2021-11-17 13:29 | PHA.MEDREC ---
Pharmacy Consult ? Medication Reconciliation Pharmacy has completed the medication reconciliation.
[2021-11-17 13:39] LABS: Thyroid Stimulating Hormone < 0.01 uIU/mL (0.32-4.0)
[2021-11-17] MEDS: Acetaminophen 325 MG TABLET 650 MG PO (13:56)
[2021-11-17 15:22] LABS: Appearance Urine CLEAR; Color Urine YELLOW; Glucose Urine UA NEG (NEG); Leukocyte Esterase Urine NEG (NEG); Nitrite Urine NEG (NEG); Specific Gravity - Urine 1.015 (1.005-1.025); Urine Blood NEG (NEG); Urine Ketones NEG (NEG); Urine Protein NEG (NEG-TRACE)
[2021-11-17 15:54] LABS: Amphetamine Screen Urine Not Detected (Not Detect); Barbiturates, Urine Not Detected (Not Detect); Benzodiazepines Screen Urine POSITIVE (Not Detect); Cannabinoid Screen Urine Not Detected (Not Detect); Cocaine Screen Urine Not Detected (Not Detect); Fentanyl, urine POSITIVE (Not Detect); Opiate Screen Urine Not Detected (Not Detect); Phencyclidine Screen Urine Not Detected (Not Detect)
[2021-11-17] MEDS: Amitriptyline HCl 50 MG TABLET PO (21:09)
[2021-11-17] MEDS: Gabapentin 100 MG CAPSULE PO (21:09)
[2021-11-17] MEDS: DULoxetine HCl 60 MG CAPSULE.DR PO (21:09)
[2021-11-17] MEDS: clonazePAM 1 MG TABLET PO (21:09)
[2021-11-17] MEDS: traZODone HCL 100 MG TABLET PO (21:09)
[2021-11-17] MEDS: QUEtiapine Fumarate 50 MG TABLET PO (21:09)
[2021-11-17] MEDS: oxyCODONE HCl Immed Release 5 MG TABLET 2.5 MG PO (21:14)
--- NOTE | 2021-11-17 21:21 | PC.NURSE ---
Patient was verbally abusive and accusatory towards this com writer blaming not medicating her for whole day, med rec was completed from earlier day but was not approved by the provider, provider notified/medication approved/pharmacy notified to expedite medication verification, S 1 called/okayed to administer medication, medication was pulled out however this com writer request other RN Markus to administer so that trigger can can be reduced, patient took her nighttime medication, currently resting in her room, vss, pending S1 admission, will continue to monitor
[2021-11-17] MEDS: Docusate Sodium 100 MG CAPSULE PO (21:28)
[2021-11-17 23:57] VITALS: BP 144/66; PULSE 94; RESP 22; TEMP 36.9; O2SAT 93
--- NOTE | 2021-11-18 04:55 | PC.ADMIT ---
70yoF self-presented to ED per recommendation of outpt doctor for increased anxiety and inability to care for self. Pt has history of OCD, PTSD, anxiety with agoraphobia. She reports being unable to perform basic tasks for self like ADLs and eating and has not gone outside in over a year. Pt sees Dr. Tran outpt and was most recently admitted to in 2019. Pt reports PMH chronic pain, currently has a fentanyl patch 25mcg applied to LL abdominal quadrant. Pt is anxious, hyperverbal, tangential and circumstantial but pleasant and cooperative. Denies SI/HI/AVH.
[2021-11-18 07:20] VITALS: BP 122/69; PULSE 100; RESP 19; TEMP 36.4; O2SAT 94
[2021-11-18] MEDS: Levothyroxine Sodium 100 MCG TABLET PO (08:52)
[2021-11-18] MEDS: hydrOXYzine HCL 25 MG TABLET PO ×2 (08:52→11:18)
[2021-11-18] MEDS: Gabapentin 100 MG CAPSULE PO ×3 (08:52→20:16)
[2021-11-18] MEDS: modafiniL 100 MG TABLET 200 MG PO ×2 (08:52→11:19)
[2021-11-18] MEDS: DULoxetine HCl 60 MG CAPSULE.DR PO ×2 (08:52→20:18)
[2021-11-18] MEDS: Docusate Sodium 100 MG CAPSULE PO ×2 (08:52→20:17)
[2021-11-18] MEDS: Omeprazole 40 MG CAPSULE.DR PO (08:53)
[2021-11-18] MEDS: oxyCODONE HCl Immed Release 5 MG TABLET 2.5 MG PO ×3 (08:53→20:14)
[2021-11-18] MEDS: clonazePAM 0.5 MG TABLET PO (08:53)
[2021-11-18] MEDS: QUEtiapine Fumarate 25 MG TABLET PO ×2 (08:53→11:19)
[2021-11-18] MEDS: polyethylene glycoL 3350 17 GM POWD.PACK PO (08:55)
[2021-11-18 09:04] LABS: Estimated Average Glucose 114 mg/dL; Hemoglobin A1c % 5.6 %
[2021-11-18 09:07] LABS: Cholesterol 161 mg/dL; HDL Cholesterol 50 mg/dL; LDL Cholesterol Calculated 88 mg/dl; Magnesium 1.8 mg/dL (1.6-2.6); Triglycerides 116 mg/dL
[2021-11-18] MEDS: Albuterol Sulfate 90 MCG 8 GM INHALER 1 PUFF INHALE ×3 (11:18→20:20)
[2021-11-18] MEDS: Ipratropium Bromide 1 PUFF/17 MCG INHALER INHALE (11:31)
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
[2021-11-18 14:29] LABS: Iron 58 mcg/dL (30-160); Percent Iron Saturation 13 % (15-50); Total Iron Binding Capacity 444 mcg/dL (228-428); Unsaturated Iron Binding 386 ug/dL
[2021-11-18 18:00] VITALS: BP 148/70; PULSE 82; RESP 82; TEMP 36.6; O2SAT 16
[2021-11-18] MEDS: QUEtiapine Fumarate 50 MG TABLET PO (20:15)
[2021-11-18] MEDS: diphenhydrAMINE HCL 25 MG TABLET 50 MG PO (20:16)
[2021-11-18] MEDS: clonazePAM 0.5 MG TABLET 1.5 MG PO (20:16)
[2021-11-18] MEDS: Amitriptyline HCl 50 MG TABLET PO (20:18)
[2021-11-18] MEDS: traZODone HCL 100 MG TABLET PO (20:18)
[2021-11-18] MEDS: Ipratropium Bromide 1 PUFF/17 MCG INHALER 2 PUFF INHALE (20:19)
[2021-11-19 06:00] VITALS: BP 176/67; PULSE 114; RESP 16; TEMP 36.4; O2SAT 95
[2021-11-19] MEDS: DULoxetine HCl 60 MG CAPSULE.DR PO ×2 (09:16→20:21)
[2021-11-19] MEDS: oxyCODONE HCl Immed Release 5 MG TABLET 2.5 MG PO ×3 (09:16→20:22)
[2021-11-19] MEDS: Gabapentin 100 MG CAPSULE PO ×3 (09:16→20:21)
[2021-11-19] MEDS: hydrOXYzine HCL 25 MG TABLET PO ×2 (09:16→12:48)
[2021-11-19] MEDS: clonazePAM 0.5 MG TABLET PO (09:16)
[2021-11-19] MEDS: modafiniL 100 MG TABLET 200 MG PO ×2 (09:16→12:48)
[2021-11-19] MEDS: Docusate Sodium 100 MG CAPSULE PO ×2 (09:16→20:20)
[2021-11-19] MEDS: Albuterol Sulfate 90 MCG 8 GM INHALER 1 PUFF INHALE ×2 (09:21→12:48)
[2021-11-19] MEDS: Ipratropium Bromide 1 PUFF/17 MCG INHALER 2 PUFF INHALE (09:22)
[2021-11-19] MEDS: Acetaminophen 325 MG TABLET 975 MG PO (14:09)
[2021-11-19 19:45] VITALS: BP 104/60; PULSE 87; RESP 16; TEMP 36.2; O2SAT 95
[2021-11-19] MEDS: QUEtiapine Fumarate 50 MG TABLET PO (20:20)
[2021-11-19] MEDS: Amitriptyline HCl 50 MG TABLET PO (20:21)
[2021-11-19] MEDS: clonazePAM 0.5 MG TABLET 1.5 MG PO (20:21)
[2021-11-19] MEDS: traZODone HCL 100 MG TABLET PO (20:21)
[2021-11-19] MEDS: diphenhydrAMINE HCL 25 MG TABLET 50 MG PO (20:21)
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
[2021-11-20 06:00] VITALS: BP 118/59; PULSE 65; RESP 16; TEMP 37.2; O2SAT 93
[2021-11-20 06:25] LABS: Folate 6.6 ng/mL (> or = 4.0); Vitamin B12 164 pg/mL (200-900)
[2021-11-20] MEDS: Levothyroxine Sodium 100 MCG TABLET PO (06:42)
[2021-11-20] MEDS: Omeprazole 40 MG CAPSULE.DR PO (06:42)
[2021-11-20] MEDS: Metoclopramide HCl 10 MG TABLET PO (09:38)
[2021-11-20] MEDS: polyethylene glycoL 3350 17 GM POWD.PACK PO (09:38)
[2021-11-20] MEDS: Gabapentin 100 MG CAPSULE PO ×3 (09:38→20:48)
[2021-11-20] MEDS: Docusate Sodium 100 MG CAPSULE PO ×2 (09:38→20:49)
[2021-11-20] MEDS: Ferrous Sulfate 324 MG TABLET.DR PO (09:38)
[2021-11-20] MEDS: hydrOXYzine HCL 25 MG TABLET PO ×2 (09:38→13:24)
[2021-11-20] MEDS: oxyCODONE HCl Immed Release 5 MG TABLET 2.5 MG PO ×3 (09:39→20:48)
[2021-11-20] MEDS: modafiniL 100 MG TABLET 200 MG PO ×2 (09:40→13:23)
[2021-11-20] MEDS: DULoxetine HCl 60 MG CAPSULE.DR PO ×2 (09:40→17:59)
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
[2021-11-20 12:52] LABS: Alanine Aminotransferase 9 U/L (0-31); Albumin Level 4.3 g/dL (3.5-5.0); Alkaline Phosphatase 178 U/L (39-117); Anion Gap 13 (12-20); Aspartate Amino Transferase 17 U/L (5-31); Bilirubin Total 0.3 mg/dL (0.0-1.0); Blood Urea Nitrogen 16 mg/dL (9-16); Calcium 9.3 mg/dL (8.4-10.2); Carbon Dioxide 26 mmol/L (22-29); Chloride 105 mmol/L (96-108); Creatinine Clr Calc Pharmacy 52.8; Estimated Glomerular Filt Rate > 60; Glucose Random 96 mg/dL (60-115); Potassium 4.4 mmol/L (3.3-5.1); Sodium 140 mmol/L (135-145); Total Protein 7.2 g/dL (6.5-8.0)
[2021-11-20] MEDS: Cyanocobalamin (Vitamin B-12) 1,000 MCG/ML VIAL 1000 MCG IM (13:14)
[2021-11-20] MEDS: Folic Acid 1 MG TABLET PO (13:24)
--- NOTE | 2021-11-20 13:27 | MHC.CLN ---
RE: CONSULT PREVIOUS WT HX REVEALS: 55.8KG (02/2020) ADMIT WT 65KG (11/2021) PT TRIGGERS FOR 16% WT GAIN X 2 YEARS. BMI WNL MONITOR PO INTAKE CLOSELY IF PO POOR X 3DAYS, RECOMMEND ADDING ENSURE BID SUPPLEMENT
[2021-11-20 16:49] LABS: OBS Int Ctl Valid YES; OBS1 NEGATIVE (NEGATIVE)
[2021-11-20] MEDS: diazePAM 5 MG TABLET PO (17:59)
[2021-11-20 20:46] VITALS: BP 110/78; PULSE 94; RESP 18; TEMP 36.4; O2SAT 94
[2021-11-20] MEDS: diphenhydrAMINE HCL 25 MG TABLET PO (20:48)
[2021-11-20] MEDS: clonazePAM 1 MG TABLET PO (20:49)
[2021-11-20] MEDS: QUEtiapine Fumarate 50 MG TABLET PO (20:49)
[2021-11-20] MEDS: Amitriptyline HCl 50 MG TABLET PO (20:49)
[2021-11-20] MEDS: traZODone HCL 100 MG TABLET PO (20:49)
[2021-11-20] MEDS: fentaNYL 25 MCG PATCH.TD72 TRANSDERMA (20:59)
[2021-11-20 21:27] LABS: OBS Int Ctl Valid YES; OBS1 NEGATIVE (NEGATIVE)
[2021-11-21] MEDS: Levothyroxine Sodium 100 MCG TABLET PO (05:45)
[2021-11-21] MEDS: Omeprazole 40 MG CAPSULE.DR PO (05:45)
[2021-11-21 06:00] VITALS: BP 145/71; PULSE 89; RESP 17; TEMP 36.1; O2SAT 96
[2021-11-21] MEDS: Folic Acid 1 MG TABLET PO (08:34)
[2021-11-21] MEDS: polyethylene glycoL 3350 17 GM POWD.PACK PO (08:34)
[2021-11-21] MEDS: Docusate Sodium 100 MG CAPSULE PO ×2 (08:34→20:15)
[2021-11-21] MEDS: oxyCODONE HCl Immed Release 5 MG TABLET 2.5 MG PO ×3 (08:35→20:16)
[2021-11-21] MEDS: hydrOXYzine HCL 25 MG TABLET PO ×2 (08:35→12:22)
[2021-11-21] MEDS: Gabapentin 100 MG CAPSULE PO ×3 (08:35→20:15)
[2021-11-21] MEDS: modafiniL 100 MG TABLET 200 MG PO ×2 (08:36→12:21)
[2021-11-21] MEDS: Ferrous Sulfate 324 MG TABLET.DR PO (08:37)
[2021-11-21] MEDS: DULoxetine HCl 60 MG CAPSULE.DR PO ×2 (08:37→17:48)
[2021-11-21] MEDS: Acetaminophen 325 MG TABLET 975 MG PO ×2 (11:12→17:44)
[2021-11-21 16:27] LABS: OBS Int Ctl Valid YES; OBS1 NEGATIVE (NEGATIVE)
[2021-11-21 18:00] VITALS: BP 119/57; PULSE 84; RESP 16; TEMP 36.6; O2SAT 96
[2021-11-21] MEDS: QUEtiapine Fumarate 50 MG TABLET PO (20:15)
[2021-11-21] MEDS: Amitriptyline HCl 50 MG TABLET PO (20:15)
[2021-11-21] MEDS: clonazePAM 1 MG TABLET PO (20:15)
[2021-11-21] MEDS: diphenhydrAMINE HCL 25 MG TABLET PO (20:16)
[2021-11-21] MEDS: traZODone HCL 100 MG TABLET PO (20:16)
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
[2021-11-22] MEDS: Omeprazole 40 MG CAPSULE.DR PO (05:26)
[2021-11-22] MEDS: Levothyroxine Sodium 100 MCG TABLET PO (05:26)
[2021-11-22 07:00] VITALS: BP 158/70; PULSE 103; RESP 18; TEMP 36.2; O2SAT 95; BMI 23.3
--- NOTE | 2021-11-22 08:00 | ECG_ITS ---
Test Reason : CYMBALTA Blood Pressure : / mmHG Vent. Rate : 090 BPM Atrial Rate : 090 BPM P-R Int : 178 ms QRS Dur : 128 ms QT Int : 372 ms P-R-T Axes : 071 010 013 degrees QTc Int : 455 ms Normal sinus rhythm Right bundle branch block Abnormal ECG When compared with ECG of 02-MAY-2019 07:27, Right bundle branch block is now Present Referred By: Jay Tran Electronically Signed By:Malcolm Price
[2021-11-22] MEDS: Docusate Sodium 100 MG CAPSULE PO ×2 (08:30→21:29)
[2021-11-22] MEDS: Folic Acid 1 MG TABLET PO (08:30)
[2021-11-22] MEDS: Gabapentin 100 MG CAPSULE PO ×3 (08:30→21:30)
[2021-11-22] MEDS: modafiniL 100 MG TABLET 200 MG PO ×2 (08:30→12:40)
[2021-11-22] MEDS: DULoxetine HCl 60 MG CAPSULE.DR PO ×2 (08:30→17:14)
[2021-11-22] MEDS: oxyCODONE HCl Immed Release 5 MG TABLET 2.5 MG PO ×3 (08:30→21:31)
[2021-11-22] MEDS: Metoclopramide HCl 10 MG TABLET PO (08:30)
[2021-11-22] MEDS: hydrOXYzine HCL 25 MG TABLET PO ×2 (08:30→12:40)
[2021-11-22] MEDS: Ferrous Sulfate 324 MG TABLET.DR PO (08:30)
[2021-11-22] MEDS: Albuterol Sulfate 90 MCG 8 GM INHALER 1 PUFF INHALE ×3 (08:33→15:41)
[2021-11-22] MEDS: polyethylene glycoL 3350 17 GM POWD.PACK PO (08:34)
[2021-11-22] MEDS: Acetaminophen 325 MG TABLET 975 MG PO (11:20)
--- NOTE | 2021-11-22 16:12 | PC.NURSE ---
organic lab worker reported she observed patient throw up in bathroom right after couple bites of lunch. Patient is scheduled for barium swallow test 11/23/21 @ 1100. EKG performed today indicated NSR w/ Rbbb. estogen patch placed today on LLQ
[2021-11-22] MEDS: clonazePAM 0.5 MG TABLET 0.25 MG PO (17:15)
[2021-11-22 21:21] VITALS: BP 121/65; PULSE 87; TEMP 36.8; O2SAT 94
[2021-11-22] MEDS: diphenhydrAMINE HCL 25 MG TABLET PO (21:29)
[2021-11-22] MEDS: clomiPRAMINE HCl 25 MG CAPSULE PO (21:29)
[2021-11-22] MEDS: clonazePAM 1 MG TABLET PO (21:29)
[2021-11-22] MEDS: QUEtiapine Fumarate 50 MG TABLET PO (21:30)
[2021-11-22] MEDS: traZODone HCL 100 MG TABLET PO (21:30)
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
[2021-11-23] MEDS: Levothyroxine Sodium 100 MCG TABLET PO (05:53)
[2021-11-23] MEDS: Omeprazole 40 MG CAPSULE.DR PO (05:54)
[2021-11-23 07:00] VITALS: BP 129/59; PULSE 83; RESP 18; TEMP 36.8; O2SAT 95
[2021-11-23] MEDS: oxyCODONE HCl Immed Release 5 MG TABLET 2.5 MG PO ×2 (08:52→20:07)
[2021-11-23] MEDS: Docusate Sodium 100 MG CAPSULE PO ×2 (08:52→20:01)
[2021-11-23] MEDS: Folic Acid 1 MG TABLET PO (08:52)
[2021-11-23] MEDS: modafiniL 100 MG TABLET 200 MG PO ×2 (08:52→12:55)
[2021-11-23] MEDS: polyethylene glycoL 3350 17 GM POWD.PACK PO (08:53)
[2021-11-23] MEDS: Gabapentin 100 MG CAPSULE PO ×3 (08:53→20:01)
[2021-11-23] MEDS: hydrOXYzine HCL 25 MG TABLET PO ×2 (08:53→12:56)
[2021-11-23] MEDS: Ferrous Sulfate 324 MG TABLET.DR PO (08:53)
[2021-11-23] MEDS: DULoxetine HCl 60 MG CAPSULE.DR PO ×2 (08:53→16:47)
[2021-11-23] MEDS: Ipratropium Bromide 1 PUFF/17 MCG INHALER 2 PUFF INHALE (08:56)
[2021-11-23 19:49] VITALS: BP 140/64; PULSE 93; RESP 17; TEMP 36.6; O2SAT 94
[2021-11-23] MEDS: QUEtiapine Fumarate 50 MG TABLET PO (20:01)
[2021-11-23] MEDS: traZODone HCL 100 MG TABLET PO (20:01)
[2021-11-23] MEDS: clonazePAM 1 MG TABLET PO (20:01)
[2021-11-23] MEDS: clomiPRAMINE HCl 25 MG CAPSULE PO (20:01)
[2021-11-23] MEDS: diphenhydrAMINE HCL 25 MG TABLET PO (20:01)
[2021-11-23] MEDS: fentaNYL 25 MCG PATCH.TD72 TRANSDERMA (20:14)
[2021-11-23] MEDS: Acetaminophen 325 MG TABLET 975 MG PO (21:41)
[2021-11-23] MEDS: clonazePAM 0.5 MG TABLET 0.25 MG PO (21:41)
[2021-11-24] MEDS: clonazePAM 0.5 MG TABLET 0.25 MG PO (03:43)
[2021-11-24] MEDS: Acetaminophen 325 MG TABLET 975 MG PO (03:43)
[2021-11-24] MEDS: Omeprazole 40 MG CAPSULE.DR PO (04:25)
[2021-11-24] MEDS: Levothyroxine Sodium 100 MCG TABLET PO (04:25)
[2021-11-24 08:00] VITALS: BP 158/87; PULSE 84; RESP 17; TEMP 35.9; O2SAT 95
[2021-11-24] MEDS: modafiniL 100 MG TABLET 200 MG PO ×2 (08:37→13:11)
[2021-11-24] MEDS: Docusate Sodium 100 MG CAPSULE PO ×2 (08:38→19:53)
[2021-11-24] MEDS: hydrOXYzine HCL 25 MG TABLET PO ×2 (08:38→13:13)
[2021-11-24] MEDS: Folic Acid 1 MG TABLET PO (08:38)
[2021-11-24] MEDS: oxyCODONE HCl Immed Release 5 MG TABLET 2.5 MG PO ×3 (08:39→19:53)
[2021-11-24] MEDS: polyethylene glycoL 3350 17 GM POWD.PACK PO (08:41)
[2021-11-24] MEDS: DULoxetine HCl 60 MG CAPSULE.DR PO ×2 (08:41→16:06)
[2021-11-24] MEDS: Metoclopramide HCl 10 MG TABLET PO (09:10)
[2021-11-24] MEDS: Ferrous Sulfate 324 MG TABLET.DR PO (09:10)
[2021-11-24] MEDS: Gabapentin 100 MG CAPSULE PO ×3 (09:10→19:52)
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
[2021-11-24 19:40] VITALS: BP 139/69; PULSE 92; RESP 14; TEMP 36.6; O2SAT 97
[2021-11-24] MEDS: diphenhydrAMINE HCL 25 MG TABLET PO (19:53)
[2021-11-24] MEDS: clomiPRAMINE HCl 25 MG CAPSULE 50 MG PO (19:53)
[2021-11-24] MEDS: clonazePAM 1 MG TABLET PO (19:53)
[2021-11-24] MEDS: traZODone HCL 100 MG TABLET PO (19:53)
[2021-11-24] MEDS: QUEtiapine Fumarate 50 MG TABLET PO (19:53)
[2021-11-24] MEDS: Amitriptyline HCl 50 MG TABLET PO (21:37)
[2021-11-25] MEDS: Acetaminophen 325 MG TABLET 975 MG PO ×3 (02:27→17:35)
[2021-11-25] MEDS: clonazePAM 0.5 MG TABLET 0.25 MG PO (02:28)
[2021-11-25] MEDS: Levothyroxine Sodium 100 MCG TABLET PO (06:06)
[2021-11-25] MEDS: Omeprazole 40 MG CAPSULE.DR PO (06:07)
[2021-11-25] MEDS: Ferrous Sulfate 324 MG TABLET.DR PO (08:14)
[2021-11-25] MEDS: hydrOXYzine HCL 25 MG TABLET PO ×2 (08:14→12:29)
[2021-11-25] MEDS: Docusate Sodium 100 MG CAPSULE PO ×2 (08:14→20:40)
[2021-11-25 08:15] VITALS: BP 122/64; PULSE 86; RESP 16; TEMP 36.6; O2SAT 97
[2021-11-25] MEDS: oxyCODONE HCl Immed Release 5 MG TABLET 2.5 MG PO ×3 (08:15→20:40)
[2021-11-25] MEDS: Gabapentin 100 MG CAPSULE PO ×3 (08:16→20:40)
[2021-11-25] MEDS: DULoxetine HCl 60 MG CAPSULE.DR PO ×2 (08:16→16:50)
[2021-11-25] MEDS: Folic Acid 1 MG TABLET PO (08:17)
[2021-11-25] MEDS: polyethylene glycoL 3350 17 GM POWD.PACK PO (08:17)
[2021-11-25] MEDS: modafiniL 100 MG TABLET 200 MG PO ×2 (08:17→12:29)
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
[2021-11-25 18:00] VITALS: BP 124/61; PULSE 85; RESP 16; TEMP 37.6; O2SAT 96
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
[2021-11-25] MEDS: Amitriptyline HCl 50 MG TABLET PO (20:39)
[2021-11-25] MEDS: diphenhydrAMINE HCL 25 MG TABLET PO (20:40)
[2021-11-25] MEDS: clonazePAM 1 MG TABLET PO (20:40)
[2021-11-25] MEDS: traZODone HCL 100 MG TABLET PO (20:43)
[2021-11-25] MEDS: QUEtiapine Fumarate 50 MG TABLET PO (20:43)
[2021-11-26] MEDS: Omeprazole 40 MG CAPSULE.DR PO (06:28)
[2021-11-26] MEDS: Levothyroxine Sodium 100 MCG TABLET PO (06:28)
[2021-11-26 07:30] VITALS: BP 116/56; PULSE 83; RESP 18; TEMP 36.9; O2SAT 95
[2021-11-26] MEDS: oxyCODONE HCl Immed Release 5 MG TABLET 2.5 MG PO ×3 (08:50→20:58)
[2021-11-26] MEDS: Gabapentin 100 MG CAPSULE PO (08:50)
[2021-11-26] MEDS: hydrOXYzine HCL 25 MG TABLET PO ×2 (08:50→12:00)
[2021-11-26] MEDS: Folic Acid 1 MG TABLET PO (08:50)
[2021-11-26] MEDS: Metoclopramide HCl 10 MG TABLET PO (08:50)
[2021-11-26] MEDS: Docusate Sodium 100 MG CAPSULE PO (08:50)
[2021-11-26] MEDS: modafiniL 100 MG TABLET 200 MG PO ×2 (08:50→12:00)
[2021-11-26] MEDS: Ferrous Sulfate 324 MG TABLET.DR PO (08:50)
[2021-11-26] MEDS: QUEtiapine Fumarate 25 MG TABLET PO (11:08)
[2021-11-26] MEDS: DULoxetine HCl 60 MG CAPSULE.DR PO ×2 (12:00→17:04)
--- NOTE | 2021-11-26 14:02 | MHC.CLN ---
F/U PATIENT DID NOT TOLERATE MBS ON 11/23. NAUSEA AND VOMIT X1 NOTED. CURRENT INTAKE APPEARS FAIR/POOR WITH PATIENT REPORTING THAT ONLY EATING SOME FOODS. LIKES STRAWBERRY ENSURE IF POURED ON ICE. ADDED ENSURE BID TO PROVIDE ADDITIONAL 700 KCALS, 40 G PROTEIN.
[2021-11-26] MEDS: Acetaminophen 325 MG TABLET 975 MG PO (17:04)
[2021-11-26 18:00] VITALS: BP 128/58; PULSE 84; TEMP 36.6; O2SAT 97
[2021-11-26] MEDS: clonazePAM 1 MG TABLET PO (21:00)
[2021-11-26] MEDS: traZODone HCL 100 MG TABLET PO (21:04)
[2021-11-26] MEDS: QUEtiapine Fumarate 25 MG TABLET 75 MG PO (21:04)
[2021-11-26] MEDS: Gabapentin 300 MG CAPSULE PO (21:05)
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
[2021-11-26] MEDS: Amitriptyline HCl 50 MG TABLET PO (22:06)
[2021-11-26] MEDS: fentaNYL 25 MCG PATCH.TD72 TRANSDERMA (22:30)
[2021-11-27] MEDS: QUEtiapine Fumarate 25 MG TABLET 12.5 MG PO (04:40)
--- NOTE | 2021-11-27 06:05 | PC.NURSE ---
New fentanyl patch placed on Right Lower Abdomen, dated and initialed. Old patch wasted with flower cheniller -11/26/21
[2021-11-27] MEDS: Levothyroxine Sodium 100 MCG TABLET PO (06:43)
[2021-11-27] MEDS: Omeprazole 40 MG CAPSULE.DR PO (06:43)
[2021-11-27 07:30] VITALS: BP 115/60; PULSE 79; RESP 15; TEMP 36.5; O2SAT 100
[2021-11-27] MEDS: Folic Acid 1 MG TABLET PO (09:19)
[2021-11-27] MEDS: modafiniL 100 MG TABLET 200 MG PO ×2 (09:19→11:59)
[2021-11-27] MEDS: Docusate Sodium 100 MG CAPSULE PO ×2 (09:19→20:32)
[2021-11-27] MEDS: Ferrous Sulfate 324 MG TABLET.DR PO (09:19)
[2021-11-27] MEDS: oxyCODONE HCl Immed Release 5 MG TABLET 2.5 MG PO ×3 (09:20→20:29)
[2021-11-27] MEDS: DULoxetine HCl 60 MG CAPSULE.DR PO ×2 (09:22→18:00)
[2021-11-27 10:06] LABS: COVID-19 Test Negative (Negative); IDNOW Serial# 08D9AD1C
[2021-11-27] MEDS: Cyanocobalamin (Vitamin B-12) 1,000 MCG/ML VIAL 1000 MCG IM (12:00)
[2021-11-27] MEDS: clonazePAM 0.5 MG TABLET 0.25 MG PO (13:35)
[2021-11-27 18:00] VITALS: BP 119/59; PULSE 76; RESP 14; TEMP 37.2; O2SAT 96
[2021-11-27] MEDS: clonazePAM 1 MG TABLET PO (20:30)
[2021-11-27] MEDS: QUEtiapine Fumarate 25 MG TABLET 75 MG PO (20:31)
[2021-11-27] MEDS: Gabapentin 300 MG CAPSULE PO (20:32)
[2021-11-27] MEDS: traZODone HCL 100 MG TABLET PO (20:33)
[2021-11-27] MEDS: Amitriptyline HCl 50 MG TABLET PO (20:33)
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
[2021-11-27] MEDS: Acetaminophen 325 MG TABLET 975 MG PO (23:56)
[2021-11-27] MEDS: clonazePAM 0.5 MG TABLET PO (23:57)
[2021-11-28] MEDS: Levothyroxine Sodium 100 MCG TABLET PO (06:41)
[2021-11-28] MEDS: Omeprazole 40 MG CAPSULE.DR PO (06:42)
[2021-11-28 07:40] VITALS: BP 126/64; PULSE 75; RESP 16; TEMP 36.7; O2SAT 98
[2021-11-28] MEDS: Metoclopramide HCl 10 MG TABLET PO (08:04)
[2021-11-28] MEDS: modafiniL 100 MG TABLET 200 MG PO (08:04)
[2021-11-28] MEDS: DULoxetine HCl 60 MG CAPSULE.DR PO (08:04)
[2021-11-28] MEDS: Folic Acid 1 MG TABLET PO (08:05)
[2021-11-28] MEDS: Docusate Sodium 100 MG CAPSULE PO (08:05)
[2021-11-28] MEDS: oxyCODONE HCl Immed Release 5 MG TABLET 2.5 MG PO (08:05)
[2021-11-28] MEDS: Ferrous Sulfate 324 MG TABLET.DR PO (08:07)
[2021-11-28] MEDS: polyethylene glycoL 3350 17 GM POWD.PACK PO (08:08)
[2021-11-28 11:15] LABS: Alanine Aminotransferase 9 U/L (0-31); Albumin Level 4.4 g/dL (3.5-5.0); Alkaline Phosphatase 183 U/L (39-117); Anion Gap 11 (12-20); Aspartate Amino Transferase 14 U/L (5-31); Bilirubin Total 0.2 mg/dL (0.0-1.0); Blood Urea Nitrogen 12 mg/dL (9-16); Calcium 9.3 mg/dL (8.4-10.2); Carbon Dioxide 27 mmol/L (22-29); Chloride 107 mmol/L (96-108); Creatinine Clr Calc Pharmacy 45.1; Estimated Glomerular Filt Rate 60; Glucose Random 109 mg/dL (60-115); Sodium 141 mmol/L (135-145); Total Protein 7.3 g/dL (6.5-8.0)
[2021-11-28 11:37] LABS: Free T4 (Free Thyroxine) 1.24 ng/dL (0.71-1.85); Thyroid Stimulating Hormone < 0.01 uIU/mL (0.32-4.0)
[2021-11-28 12:45] LABS: Estimated Average Glucose 105 mg/dL; Hemoglobin A1c % 5.3 %
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
[2021-11-30 10:32] LABS: Triiodothyronine T3 Free 3.2 pg/mL (2.3-4.2)
== END 2021-11-28 11:10 | disposition home or self-care (01) | DRG 885 ==
LOC: HO.ED 21:44 → HO.PGERI 22:31
PROVIDERS: Nurse Practitioner Family; Psychiatry & Neurology Psychiatry; Admitting Provider Registered Nurse; Emergency Provider Emergency Medicine Emergency Medical Services; Visit Provider Psychiatry & Neurology Psychiatry
DX: F33.2 Major depressive disorder, recurrent severe without psychotic features (principal); F42.9 Obsessive-compulsive disorder, unspecified; F40.01 Agoraphobia with panic disorder; Z20.822 Contact with and (suspected) exposure to COVID-19; Z88.0 Allergy status to penicillin; Z88.5 Allergy status to narcotic agent; Z88.8 Allergy status to other drugs, medicaments and biological substances; Z79.890 Hormone replacement therapy; Z79.899 Other long term (current) drug therapy
CPT/HCPCS: 36415; 70551; 71101; 73502; 74220; 80048; 80053; 80061; 80076; 80143; 80179; 80307; 81003; 82077; 82272; 82607; 82746; 83036; 83540; 83735; 84439; 84443; 84481; 85025; 87635; 93005; 99285; Q0163

== ENCOUNTER → 2022-03-14 10:01 | Outpatient (BNVA) | payer MEDICARE, SELFPAY | PROVIDERS: PCP Family Medicine; Visit Provider Psychiatry & Neurology Psychiatry | DX: F40.01 Agoraphobia with panic disorder (principal); F42.9 Obsessive-compulsive disorder, unspecified; F32.9 Major depressive disorder, single episode, unspecified | CPT/HCPCS: 90833; 99212 ==

== ENCOUNTER → 2022-04-23 17:38 | Outpatient (BNVA) | payer MEDICARE, SELFPAY | PROVIDERS: PCP Family Medicine; Visit Provider Psychiatry & Neurology Psychiatry | DX: F32.9 Major depressive disorder, single episode, unspecified (principal); F40.01 Agoraphobia with panic disorder; F42.9 Obsessive-compulsive disorder, unspecified | CPT/HCPCS: Q3014 ==

== ENCOUNTER → 2022-06-05 11:59 | Outpatient (BNVA) | payer MEDICARE, SELFPAY | PROVIDERS: PCP Family Medicine; Visit Provider Psychiatry & Neurology Psychiatry | DX: F32.9 Major depressive disorder, single episode, unspecified (principal); F42.9 Obsessive-compulsive disorder, unspecified; F40.01 Agoraphobia with panic disorder; F43.10 Post-traumatic stress disorder, unspecified | CPT/HCPCS: 99212 ==

== ENCOUNTER → 2022-07-12 12:59 | Outpatient (BNVA) | payer MEDICARE, SELFPAY | PROVIDERS: PCP Family Medicine; Visit Provider Psychiatry & Neurology Psychiatry | DX: F43.10 Post-traumatic stress disorder, unspecified (principal); F40.01 Agoraphobia with panic disorder; F42.9 Obsessive-compulsive disorder, unspecified; F32.9 Major depressive disorder, single episode, unspecified | CPT/HCPCS: Q3014 ==

== ENCOUNTER → 2022-08-29 11:36 | Outpatient (BNVA) | payer MEDICARE, SELFPAY | PROVIDERS: PCP Family Medicine; Visit Provider Psychiatry & Neurology Psychiatry | DX: F43.11 Post-traumatic stress disorder, acute (principal); F33.2 Major depressive disorder, recurrent severe without psychotic features; F40.01 Agoraphobia with panic disorder; F42.9 Obsessive-compulsive disorder, unspecified | CPT/HCPCS: Q3014 ==

== ENCOUNTER → 2022-10-15 13:28 | Outpatient (BNVA) | payer MEDICARE, SELFPAY | PROVIDERS: PCP Family Medicine; Visit Provider Psychiatry & Neurology Psychiatry | DX: F43.10 Post-traumatic stress disorder, unspecified (principal); F33.2 Major depressive disorder, recurrent severe without psychotic features; F40.01 Agoraphobia with panic disorder; F42.9 Obsessive-compulsive disorder, unspecified | CPT/HCPCS: Q3014 ==

== ENCOUNTER 2022-12-12 15:42 | Outpatient (AMB) | payer OTHER, SELFPAY ==
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
== END 2022-12-12 15:45 | disposition home or self-care (01) ==
LOC: HO.HOP 15:42
PROVIDERS: PCP Family Medicine; Visit Provider Psychiatry & Neurology Psychiatry
DX: F43.10 Post-traumatic stress disorder, unspecified (principal); F33.2 Major depressive disorder, recurrent severe without psychotic features; F40.01 Agoraphobia with panic disorder; F42.9 Obsessive-compulsive disorder, unspecified
CPT/HCPCS: 99214

== ENCOUNTER → 2022-12-12 15:42 | Outpatient (BNVA) | payer OTHER, SELFPAY | PROVIDERS: PCP Family Medicine; Visit Provider Psychiatry & Neurology Psychiatry ==

== ENCOUNTER 2023-04-17 11:48 | Outpatient (AMB) | payer OTHER, SELFPAY ==
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
== END 2023-04-17 12:04 | disposition home or self-care (01) ==
LOC: HO.HOP 11:48
PROVIDERS: PCP Family Medicine; Visit Provider Psychiatry & Neurology Psychiatry
DX: F42.9 Obsessive-compulsive disorder, unspecified (principal); F43.10 Post-traumatic stress disorder, unspecified; F33.2 Major depressive disorder, recurrent severe without psychotic features; F40.01 Agoraphobia with panic disorder
CPT/HCPCS: 99214

== ENCOUNTER → 2023-04-17 11:48 | Outpatient (BNVA) | payer OTHER, SELFPAY | PROVIDERS: PCP Family Medicine; Visit Provider Psychiatry & Neurology Psychiatry ==

== ENCOUNTER 2023-07-03 11:23 | Outpatient (AMB) | payer OTHER, SELFPAY ==
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
== END 2023-07-03 11:23 | disposition home or self-care (01) ==
LOC: HO.HOP 11:23
PROVIDERS: PCP Family Medicine; Visit Provider Psychiatry & Neurology Psychiatry
DX: F42.9 Obsessive-compulsive disorder, unspecified (principal); F43.10 Post-traumatic stress disorder, unspecified; F32.9 Major depressive disorder, single episode, unspecified; F40.01 Agoraphobia with panic disorder
CPT/HCPCS: 99214

== ENCOUNTER → 2023-07-03 11:23 | Outpatient (BNVA) | payer OTHER, SELFPAY | PROVIDERS: PCP Family Medicine; Visit Provider Psychiatry & Neurology Psychiatry ==

== ENCOUNTER → 2023-07-10 13:54 | Outpatient (BNVA) | payer OTHER, SELFPAY | PROVIDERS: PCP Family Medicine; Visit Provider Psychiatry & Neurology Psychiatry ==

== ENCOUNTER 2023-07-17 04:05 | Emergency (ER) | payer MEDICARE, SELFPAY ==
[2023-07-17 04:08] VITALS: BP 138/81; PULSE 117; RESP 16; TEMP 36.7; O2SAT 96; BMI 24.5
--- NOTE | 2023-07-17 06:15 | ED.DENTAL ---
HPI - Dental/Oral General Chief complaint: Dental/Oral Stated complaint: ?Dental issue/Eye discharge Time Seen by Provider: 07/17/23 05:34 Source: patient Mode of arrival: ambulatory History of Present Illness HPI Narrative: 72-year-old female comes in with worsening right lower dental infection and states that she finally left the house after 3 years as she suffers from OCD/PTSD/depression as well as agoraphobia. Related Data Home Medications Medication Instructions Recorded Confirmed acetaminophen 500 mg tablet 1,000 mg PO BEDTIME 11/17/21 04/17/23 docusate sodium 100 mg capsule 300 mg PO BID 11/17/21 04/17/23 estradiol 0.025 mg/24 hr weekly 1 patch topical QWEEK 11/17/21 04/17/23 transdermal patch ipratropium 20 mcg-albuterol 100 1 puff inhalation QID 11/17/21 04/17/23 mcg/actuation mist for inhalation (Combivent Respimat) levothyroxine 100 mcg tablet 1 tab PO DAILY 11/17/21 04/17/23 metoclopramide HCl 10 mg tablet 1 tab PO Q48H 11/17/21 04/17/23 oxycodone-acetaminophen 5 mg-325 0.5 tab PO TID 11/17/21 04/17/23 mg tablet polyethylene glycol 3350 17 17 g PO DAILY 11/17/21 04/17/23 gram/dose oral powder (Gavilax) naloxone 4 mg/actuation nasal spray 1 spray intranasal DAILY 04/23/22 04/17/23 Previous Rx's Medication Instructions Recorded albuterol sulfate 90 mcg/actuation 1 puff inhalation RQID PRN 11/28/21 aerosol inhaler Shortness Of Breath 30 days #1 inhaler ferrous sulfate 324 mg (65 mg 324 mg PO DAILY 30 days #30 tabs 11/28/21 iron) tablet,delayed release hydroxyzine HCl 25 mg tablet 25 mg PO BID@0800,1200 PRN Anxiety 11/28/21 #1 tab omeprazole 40 mg capsule,delayed 40 mg PO DAILY #90 caps 04/01/22 release modafinil 200 mg tablet 200 mg PO BID@0800,1200 #60 tabs 03/14/23 amitriptyline 50 mg tablet 50 mg PO BEDTIME #90 tabs 04/28/23 trazodone 100 mg tablet 100 - 200 mg (1 - 2 x 100 mg) PO 05/20/23 BEDTIME PRN Insomnia 90 days #180 tabs duloxetine 60 mg capsule,delayed 60 mg PO BID #120 caps 06/09/23 release quetiapine 50 mg tablet 100 mg (2 x 50 mg) PO BEDTIME #60 06/23/23 tabs clonazepam 1 mg tablet 1 mg PO BEDTIME #30 tabs 06/25/23 alprazolam 0.25 mg tablet 0.25 mg PO DAILY PRN anxiety 30 07/04/23 days #30 tabs gabapentin 100 mg capsule 100 mg PO TID PRN anxiety #90 caps 07/11/23 clindamycin HCl 300 mg capsule 300 mg PO Q6H 5 days #20 caps 07/17/23 Allergies Allergy/AdvReac Type Severity Reaction Status Date / Time prednisone [PREDNISONE] Allergy Mild HIVES Verified 07/17/23 04:08 tramadol [TRAMADOL] Allergy Mild HIVES Verified 07/17/23 04:08 penicillin G Allergy Unknown Unknown Verified 07/17/23 04:08 Penicillins [PENICILLINS] Allergy Unknown RASH Verified 07/17/23 04:08 methylprednisolone AdvReac Unknown VOMITING Verified 07/17/23 04:08 [METHYLPREDNISOLONE] Review of Systems Review of Systems: Pertinent positives and negatives as stated in HPI [facility] Past Medical History Source: nursing notes reviewed Medical History Hyponatremia Post traumatic stress disorder (PTSD) Depression, major, severe recurrence Acute anxiety OCD (obsessive compulsive disorder) PTSD (post-traumatic stress disorder) Torn rotator cuff Hx of herpes zoster virus Depression Anxiety Non-Hodgkin lymphoma in remission Social History Social History Household Members: None Do you presently have visiting nurse or other home services: No Patient Tobacco Use Status: Never used Tobacco Smoked in Last 30 Days: No e-Cigarette/Vaping Use: Never Used Second Hand Smoke Exposure: No Use of substances other than those prescribed or required for medical reasons: No Advance Directives: No Advance Directives Information Provided: Yes service: No Sexual orientation: Straight/Heterosexual Physical Exam Vital Signs: Vital Signs: Last Vital Signs Temp 98.0 F 07/17/23 04:08 Pulse 117 H 07/17/23 04:08 Resp 16 02/29/24 04:08 BP 138/81 07/17/23 04:08 Pulse Ox 96 07/17/23 04:08 O2 Del Method Room Air 07/17/23 04:08 BMI result Body Mass Index 24.5 VITAL SIGNS: Reviewed. GENERAL: Well developed, well nourished, in no acute distress. HEAD: Normocephalic/atraumatic EYES: PERRLA, EOMI, no conjunctival injection, no purulence drainage EARS: Ext canals without abnormality NOSE: Nares patent bilateral OROPHARYNX: no oral lesions noted, posterior pharynx clear, noted dental infection at right lower NECK: Supple, no adenopathy LUNGS: Normal breath sounds. No adventitious sounds or accessory muscle use. SpO2<96> CARDIOVASCULAR: Regular rate and rhythm without noted murmurs ABDOMEN: Soft, non-tender, non-distended with bowel sounds. MUSCULOSKELETAL: No tenderness, deformities, or effusions noted on gross inspection. EXTREMITIES: No cyanosis, clubbing or edema. SKIN: Inspection of the skin reveals no rashes NEUROLOGIC: Alert and oriented x 4. Strength and sensation to light touch were grossly intact x 4. Medical Decision Making Medical Decision Making MDM Narrative: 72-year-old female with history and clinical presentation consistent with dental infection after clinical exam, patient started on a course of clindamycin and was provided with 1st dose here in the emergency room. I do not find any evidence to suggest infection of the eyes. She was strongly encouraged to follow-up with a dentist for definitive tooth extraction. Differential Diagnosis Differential Diagnoses: The differential diagnosis associated with the presentation includes Please see the discussion above Admission/Observation Consideration of admission/observation: Escalation of care including admission/observation considered Please see the discussion above Discharge Plan Discharge Clinical Impression: Dental infection Patient Disposition: Home, Self-Care Instructions: Dental Abscess (ED) Additional Instructions: 1. Resume all home medications as prescribed. 2. Please complete the entire course of antibiotics as prescribed. 3. Make an appointment for the dentist today. Prescriptions: New clindamycin HCl 300 mg capsule 300 mg PO Q6H 5 Days Qty: 20 0RF No Action omeprazole 40 mg capsule,delayed release(DR/EC) 40 mg PO DAILY Qty: 90 0RF modafinil 200 mg tablet 200 mg PO BID@0800,1200 Qty: 60 2RF amitriptyline 50 mg tablet 50 mg PO BEDTIME Qty: 90 0RF trazodone 100 mg tablet 100 - 200 mg PO BEDTIME PRN (Reason: Insomnia) 90 Days Qty: 180 1RF duloxetine 60 mg capsule,delayed release(DR/EC) 60 mg PO BID Qty: 120 1RF quetiapine 50 mg tablet 100 mg PO BEDTIME Qty: 60 2RF clonazepam 1 mg tablet 1 mg PO BEDTIME Qty: 30 2RF Rx Instructions: administer 30 minutes before bedtime alprazolam 0.25 mg tablet 0.25 mg PO DAILY PRN (Reason: anxiety) 30 Days Qty: 30 0RF gabapentin 100 mg capsule 100 mg PO TID PRN (Reason: anxiety) Qty: 90 0RF acetaminophen 500 mg Tablet 1,000 mg PO BEDTIME levothyroxine 100 mcg tablet 1 tab PO DAILY oxycodone-acetaminophen 5-325 mg tablet 0.5 tab PO TID estradiol 0.025 mg/24 hr patch weekly 1 patch topical QWEEK docusate sodium 100 mg Capsule 300 mg PO BID polyethylene glycol 3350 [Gavilax] 17 gram/dose powder 17 g PO DAILY metoclopramide HCl 10 mg tablet 1 tab PO Q48H Combivent Respimat 20-100 mcg/actuation mist 1 puff inhalation QID albuterol sulfate 90 mcg/actuation HFA aerosol inhaler 1 puff inhalation RQID PRN (Reason: Shortness Of Breath) 30 Days Qty: 1 0RF ferrous sulfate 324 mg (65 mg iron) Tablet,Delayed Release (Dr/Ec) 324 mg PO DAILY 30 Days Qty: 30 0RF Rx Instructions: may get otc hydroxyzine HCl 25 mg tablet 25 mg PO BID@0800,1200 PRN (Reason: Anxiety) Qty: 1 0RF naloxone 4 mg/actuation spray,non-aerosol 1 spray intranasal DAILY Referrals: Blank Riggins MD [Primary Care Provider] -
[2023-07-17 06:23] VITALS: BP 116/64; PULSE 97; RESP 18; TEMP 36.7; O2SAT 97
[2023-07-17] MEDS: Clindamycin HCL 300 MG CAPSULE PO (06:40)
== END 2023-07-17 07:07 | disposition home or self-care (01) ==
PROVIDERS: Emergency Provider Student in an Organized Health Care Education/Training Program; PCP Family Medicine
DX: K04.7 Periapical abscess without sinus (principal)
CPT/HCPCS: 99283; 99284

== ENCOUNTER 2023-09-24 05:14 | Inpatient (IN) | payer MEDICARE, OTHER, SELFPAY ==
--- NOTE | ~2023-09-24 | FL_ITS ---
EXAMINATION: XR FLUOROSCOPY UPPER GI WITH AIR CLINICAL INFORMATION: Dysphagia. History of esophageal dilation COMPARISON: Barium swallow November 2021 TECHNIQUE: Fluoroscopic air contrast upper GI examination was performed utilizing standard techniques with thin and thick barium and effervescent granules. Numerous spot images were obtained. FINDINGS: Lateral cine images of the oropharynx and hypopharynx demonstrate normal swallow mechanism with normal epiglottic inversion and soft palate elevation. There is trace laryngeal penetration with thick barium. No tracheal penetration, glottic or subglottic aspiration identified. No nasopharyngeal reflux present. 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 There is mild cricopharyngeal achalasia present. Dual and single contrast images of the esophagus demonstrate normal caliber and contour. There is an abnormal granular appearance of the distal esophageal mucosa. No masses or ulcerations are seen. There is to and fro motion of the barium column with nonpropulsive tertiary contractions noted throughout the esophagus. There is moderate narrowing of the GE junction A very small type I hiatal hernia is present. No significant gastroesophageal reflux was seen during the course of the examination and on reflux views. Dual contrast and single contrast images of the stomach demonstrated normal contour and mucosal pattern without evidence of mass, ulceration, or other abnormality. Contrast freely passed into the gastric antrum and duodenal bulb without delay. Single and air-contrast images of the duodenal bulb demonstrate no abnormality. The duodenal folds of the second and third portion the duodenum have a thickened appearance that may represent enteritis versus artifact from incomplete distention. No malrotation. The imaged proximal jejunum has a normal fold pattern and caliber. FLUOROSCOPY TIME: 5 minutes 12 seconds Number of Spot Images: 5 Number of Cine: 17 DOSE AREA PRODUCT: 2160 uGy-m2 (microgray-meter squared) FL/FL barium swallow with air IMPRESSION: 1. Trace laryngeal penetration with thick barium. 2. 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 3. Mild cricopharyngeal achalasia 4. Abnormal granular appearance of the distal esophageal mucosa, consistent with erosive esophagitis. 5. Esophageal dysmotility 6. Moderate narrowing of the GE junction that may represent achalasia. A benign stricture cannot be ruled out. Recommend correlation with EGD. 7. Very small type I hiatal hernia 8. Thickened mucosal folds in the second and third portion the duodenum that may represent enteritis, versus artifact. This procedure was performed by Pierre Hernandez PA-C, and supervised by Dr. Sal
--- NOTE | ~2023-09-24 | XR_ITS ---
EXAMINATION: XR HIP, RIGHT CLINICAL INFORMATION: Right hip pain. COMPARISON: November 17, 2021 TECHNIQUE: Two views of the right hip. FINDINGS: Status right hip total arthroplasty with cemented femoral stem. Alignment is anatomic. Hardware appears intact. Bones are diffusely demineralized. XR/XR hip RT min 2V IMPRESSION: Status post right hip total arthroplasty. Additional imaging with CT scan recommended if there is clinical concern for fracture or other underlying pathology. This study was presented today, September 30, 2023 for interpretation. Stat results provided at this time as requested by referring provider.
[2023-09-24 05:25] VITALS: BP 98/77; PULSE 107; RESP 18; TEMP 37.3; O2SAT 95; BMI 25.0
--- NOTE | 2023-09-24 05:55 | PC.NURSE ---
On initial assessment, pt appearing nervous but interactive with this RN, tearful.
--- NOTE | 2023-09-24 05:59 | PC.NURSE ---
pt was walked back to a room and with further talking pt lives with depression and s1 thoughts of not wanting to live but states she is unable to carry out a plan. pt is tearful shaking and is being changed over into a green gown and a sitter is in place.
--- NOTE | 2023-09-24 06:41 | ED.GENADULT ---
HPI - General Adult General Chief complaint: Dental/Oral Stated complaint: tooth pain Time Seen by Provider: 09/24/23 06:18 Source: patient Mode of arrival: ambulatory History of Present Illness HPI narrative: 72-year-old female with history of agoraphobia with panic disorder comes in with concerns regarding the status of her teeth, she states it she is supposed to be going to see a dentist but has been unable to leave the house but was prompted to leave the house and come to the emergency room due to spitting up green. Patient denies SI but says that she has been very sad and depressed after the losses of her son, divorce and other life stressors. Related Data Home Medications ?Medication ?Instructions ?Recorded ?Confirmed acetaminophen 500 mg tablet 1,000 mg PO BEDTIME 11/17/21 04/17/23 docusate sodium 100 mg capsule 300 mg PO BID 11/17/21 04/17/23 estradiol 0.025 mg/24 hr weekly 1 patch topical QWEEK 11/17/21 04/17/23 transdermal patch ipratropium 20 mcg-albuterol 100 1 puff inhalation QID 11/17/21 04/17/23 mcg/actuation mist for inhalation (Combivent Respimat) levothyroxine 100 mcg tablet 1 tab PO DAILY 11/17/21 04/17/23 metoclopramide HCl 10 mg tablet 1 tab PO Q48H 11/17/21 04/17/23 oxycodone-acetaminophen 5 mg-325 0.5 tab PO TID 11/17/21 04/17/23 mg tablet polyethylene glycol 3350 17 17 g PO DAILY 11/17/21 04/17/23 gram/dose oral powder (Gavilax) naloxone 4 mg/actuation nasal spray 1 spray intranasal DAILY 04/23/22 04/17/23 Previous Rx's ?Medication ?Instructions ?Recorded albuterol sulfate 90 mcg/actuation 1 puff inhalation RQID PRN 11/28/21 aerosol inhaler Shortness Of Breath 30 days #1 inhaler ferrous sulfate 324 mg (65 mg 324 mg PO DAILY 30 days #30 tabs 11/28/21 iron) tablet,delayed release hydroxyzine HCl 25 mg tablet 25 mg PO BID@0800,1200 PRN Anxiety 11/28/21 #1 tab omeprazole 40 mg capsule,delayed 40 mg PO DAILY #90 caps 04/01/22 release trazodone 100 mg tablet 100 - 200 mg (1 - 2 x 100 mg) PO 05/20/23 BEDTIME PRN Insomnia 90 days #180 tabs quetiapine 50 mg tablet 100 mg (2 x 50 mg) PO BEDTIME #60 06/23/23 tabs clonazepam 1 mg tablet 1 mg PO BEDTIME #30 tabs 06/25/23 clindamycin HCl 300 mg capsule 300 mg PO Q6H 5 days #20 caps 07/17/23 amitriptyline 50 mg tablet 50 mg PO BEDTIME #90 tabs 07/29/23 gabapentin 100 mg capsule 100 mg PO TID PRN anxiety #90 caps 08/12/23 alprazolam 0.25 mg tablet 0.25 mg PO DAILY PRN anxiety 30 08/19/23 days #30 tabs modafinil 200 mg tablet 200 mg PO BID@0800,1200 #60 tabs 08/29/23 duloxetine 60 mg capsule,delayed 60 mg PO BID #120 caps 09/08/23 release Allergies Allergy/AdvReac Type Severity Reaction Status Date / Time prednisone [PREDNISONE] Allergy Mild HIVES Verified 09/24/23 05:29 tramadol [TRAMADOL] Allergy Mild HIVES Verified 09/24/23 05:29 penicillin G Allergy Unknown Unknown Verified 09/24/23 05:29 Penicillins [PENICILLINS] Allergy Unknown RASH Verified 09/24/23 05:29 methylprednisolone AdvReac Unknown VOMITING Verified 09/24/23 05:29 [METHYLPREDNISOLONE] Review of Systems Review of Systems: Pertinent positives and negatives as stated in [facility] Past Medical History Source: nursing notes reviewed Medical History Hyponatremia Post traumatic stress disorder (PTSD) Depression, major, severe recurrence Acute anxiety OCD (obsessive compulsive disorder) PTSD (post-traumatic stress disorder) Torn rotator cuff Hx of herpes zoster virus Depression Anxiety Non-Hodgkin lymphoma in remission Social History Social History Household Members: None Do you presently have visiting nurse or other home services: No Patient Tobacco Use Status: Never used Tobacco e-Cigarette/Vaping Use: Never Used Second Hand Smoke Exposure: No Advance Directives: No Advance Directives Information Provided: Yes Do you have a plan to hurt others: No Plan service: No Sexual orientation: Straight/Heterosexual Physical Exam ED Vital Signs: Vital Signs - 24 hr 09/24/23 05:25 Temperature 99.1 F Pulse Rate 107 H Respiratory Rate 18 Blood Pressure 98/77 Pulse Oximetry 95 BMI result Body Mass Index 25.0 VITAL SIGNS: Reviewed. GENERAL: Well developed, well nourished, in no acute distress. HEAD: Normocephalic/atraumatic EYES: PERRLA, EOMI EARS: Ext canals without abnormality NOSE: Nares patent bilateral OROPHARYNX: no oral lesions noted, posterior pharynx clear, there are dental caries noted on the lower but no obvious purulent discharge, I do not appreciate dental abscesses at this time NECK: Supple, no adenopathy LUNGS: Normal breath sounds. No adventitious sounds or accessory muscle use. SpO2<95> CARDIOVASCULAR: Regular rate and rhythm without noted murmurs ABDOMEN: Soft, non-tender, non-distended with bowel sounds. MUSCULOSKELETAL: No tenderness, deformities, or effusions noted on gross inspection. EXTREMITIES: No cyanosis, clubbing or edema. SKIN: Inspection of the skin reveals no rashes NEUROLOGIC: Alert and oriented x 4. Strength and sensation to light touch were grossly intact x 4, cranial nerves 2-12 are grossly intact. Medical Decision Making Medical Decision Making MDM Narrative: 72-year-old female with significant past medical history of agoraphobia with panic disorder and I do not see any current dental infection but I suspect that patient's presentation may be driven by her underlying anxiety. Will order lab work, and given the degree that her agoraphobia with panic disorder is preventing her from meeting her health and dental needs I think that it would be a good idea for her to be further evaluated by the care team and psychiatry. Signed out to Dr Vazquez for med clearance. Differential Diagnosis Differential Diagnoses: The differential diagnosis associated with the presentation includes Please see the discussion above Admission/Observation Consideration of admission/observation: Escalation of care including admission/observation considered Please see the discussion above Discharge Plan Discharge Clinical Impression: Agoraphobia, Anxiety Patient Disposition: Still a Patient Prescriptions: No Action omeprazole 40 mg capsule,delayed release(DR/EC) 40 mg PO DAILY Qty: 90 0RF trazodone 100 mg tablet 100 - 200 mg PO BEDTIME PRN (Reason: Insomnia) 90 Days Qty: 180 1RF quetiapine 50 mg tablet 100 mg PO BEDTIME Qty: 60 2RF clonazepam 1 mg tablet 1 mg PO BEDTIME Qty: 30 2RF Rx Instructions: administer 30 minutes before bedtime amitriptyline 50 mg tablet 50 mg PO BEDTIME Qty: 90 0RF gabapentin 100 mg capsule 100 mg PO TID PRN (Reason: anxiety) Qty: 90 1RF alprazolam 0.25 mg tablet 0.25 mg PO DAILY PRN (Reason: anxiety) 30 Days Qty: 30 1RF modafinil 200 mg tablet 200 mg PO BID@0800,1200 Qty: 60 2RF duloxetine 60 mg capsule,delayed release(DR/EC) 60 mg PO BID Qty: 120 1RF acetaminophen 500 mg Tablet 1,000 mg PO BEDTIME levothyroxine 100 mcg tablet 1 tab PO DAILY oxycodone-acetaminophen 5-325 mg tablet 0.5 tab PO TID estradiol 0.025 mg/24 hr patch weekly 1 patch topical QWEEK docusate sodium 100 mg Capsule 300 mg PO BID polyethylene glycol 3350 [Gavilax] 17 gram/dose powder 17 g PO DAILY metoclopramide HCl 10 mg tablet 1 tab PO Q48H Combivent Respimat 20-100 mcg/actuation mist 1 puff inhalation QID albuterol sulfate 90 mcg/actuation HFA aerosol inhaler 1 puff inhalation RQID PRN (Reason: Shortness Of Breath) 30 Days Qty: 1 0RF ferrous sulfate 324 mg (65 mg iron) Tablet,Delayed Release (Dr/Ec) 324 mg PO DAILY 30 Days Qty: 30 0RF Rx Instructions: may get otc hydroxyzine HCl 25 mg tablet 25 mg PO BID@0800,1200 PRN (Reason: Anxiety) Qty: 1 0RF clindamycin HCl 300 mg capsule 300 mg PO Q6H 5 Days Qty: 20 0RF naloxone 4 mg/actuation spray,non-aerosol 1 spray intranasal DAILY Print Language: Mongolian
[2023-09-24 07:30] LABS: MANUAL DIFF FLAG NO
--- NOTE | 2023-09-24 07:33 | PC.NURSE ---
Assumed care of patient at 0645. Patient is observed sitting quietly in their room. No signs of distress observed. Breathing is equal and unlabored. Will continue plan of care.
[2023-09-24 07:42] LABS: Basophils Absolute Auto 0.1 X10*3/uL (0.0-0.2); Basophils Percent Auto 0.7 % (0-2); Eosinophils Absolute Auto 0.1 X10*3/uL (0.0-0.4); Eosinophils Percent Auto 1.5 % (0-4); Hematocrit 35.4 % (37.0-47.0); Hemoglobin 11.4 g/dl (12.0-16.0); Imm Gran Abs Auto 0.02 X10*3/uL (0.00-0.03); Imm Gran Pct Auto 0.3 % (0.0-0.4); Lymphocytes Percent Auto 27.9 % (20-40); Mean Corpuscular HGB Conc 32.2 g/dl (31.0-35.0); Mean Corpuscular Hemoglobin 31.3 pg (27.0-33.0); Mean Corpuscular Volume 97.3 fL (80.0-98.0); Mean Platelet Volume 9.3 fL (9.4-12.3); Monocytes Absolute Auto 0.4 X10*3/uL (0.1-1.2); Monocytes Percent Auto 5.8 % (2-11); Neutrophils Absolute Auto 4.6 x10*3/uL (2.0-8.3); Neutrophils Percent Auto 63.8 % (45-73); Platelet Count 294 X10*3/uL (160-400); Red Blood Count 3.64 X10*6/uL (4.20-5.50); Red Cell Distribution Width 13.3 % (11.0-16.0); White Blood Count 7.2 X10*3/uL (4.8-10.8)
[2023-09-24 07:56] LABS: Alanine Aminotransferase 14 U/L (0-31); Albumin Level 4.2 g/dL (3.5-5.0); Alkaline Phosphatase 123 U/L (39-117); Anion Gap 17 (12-20); Aspartate Amino Transferase 15 U/L (5-31); Bilirubin Total 0.2 mg/dL (0.0-1.0); Blood Urea Nitrogen 16 mg/dL (9-16); Calcium 9.5 mg/dL (8.4-10.2); Carbon Dioxide 24 mmol/L (22-29); Chloride 105 mmol/L (96-108); Creatinine Clr Calc Pharmacy 47.2; Estimated Glomerular Filt Rate > 60; Ethanol < 10 mg/dL; Glucose Random 97 mg/dL (60-115); Potassium 4.8 mmol/L (3.3-5.1); Sodium 141 mmol/L (135-145); Total Protein 7.5 g/dL (6.5-8.0)
[2023-09-24] MEDS: ALPRAZolam 0.25 MG TABLET PO (08:24)
--- NOTE | 2023-09-24 08:27 | PC.NURSE ---
Patient refused medications: Levothyroxine, Metoclopramide, Omeprazole, and Modafinil. Patient stated that she took those medications this morning before coming to the hospital.
[2023-09-24] MEDS: oxyCODONE HCl Immed Release 5 MG TABLET 2.5 MG PO ×3 (09:18→21:45)
--- NOTE | 2023-09-24 09:22 | PC.NURSE ---
Patient refused medication: Gangambalta. Patient reports that she took the medication at home prior to coming to the hospital.
[2023-09-24 09:30] LABS: Appearance Urine Clear; Color Urine Yellow; Glucose Urine UA Negative (Negative); Leukocyte Esterase Urine Moderate (2+) (Negative); Nitrite Urine Negative (Negative); UMIC TRIGGER UACC YES; Urine Blood Negative (Negative); Urine Ketones Negative (Negative); Urine Protein Negative (Neg-Trace)
[2023-09-24 09:40] LABS: Amphetamine Screen Urine Not Detected (Not Detect); Barbiturates, Urine Not Detected (Not Detect); Benzodiazepines Screen Urine Not Detected (Not Detect); Buprenorphine Scr Not Detected (Not Detect); Cannabinoid Screen Urine Not Detected (Not Detect); Cocaine Screen Urine Not Detected (Not Detect); Fentanyl, urine Not Detected (Not Detect); Methadone Screen, Urine Not Detected (Not Detect); Opiate Screen Urine POSITIVE (Not Detect); Oxycodone Screen Urine Positive (Not Detect); Phencyclidine Screen Urine Not Detected (Not Detect)
[2023-09-24 09:44] LABS: Bacteria Urine None Seen (None Seen); Hyaline Casts Urine 0-2 /LPF (0-2); RBC Urine 0-2 /HPF (0-2); WBC Urine 0-5 /HPF (0-5)
--- NOTE | 2023-09-24 10:46 | MHC.CARE ---
Patient seen by Care Team, deemed Adult I[facility], voluntary for admission at the time of this writing.
[2023-09-24] MEDS: modafiniL 100 MG TABLET 200 MG PO (12:32)
[2023-09-24 15:29] VITALS: BP 148/82; PULSE 84; RESP 14; TEMP 36.6; O2SAT 98
[2023-09-24] MEDS: LORazepam 1 MG TABLET PO (15:55)
[2023-09-24 17:11] LABS: Folate 9.8 ng/mL (> or = 4.0); Vitamin B12 292 pg/mL (200-900)
[2023-09-24] MEDS: Gabapentin 100 MG CAPSULE PO (21:44)
[2023-09-24] MEDS: clonazePAM 1 MG TABLET PO (21:45)
[2023-09-24] MEDS: DULoxetine HCl 60 MG CAPSULE.DR PO (21:45)
[2023-09-24] MEDS: QUEtiapine Fumarate 100 MG TABLET PO (21:45)
[2023-09-24] MEDS: Amitriptyline HCl 50 MG TABLET PO (21:46)
[2023-09-24 21:58] VITALS: BP 117/75; PULSE 76; RESP 16; TEMP 36.6; O2SAT 98
[2023-09-24] MEDS: traZODone HCL 50 MG TABLET PO (22:26)
--- NOTE | 2023-09-25 | ECG_ITS ---
Test Reason : check qt Blood Pressure : / mmHG Vent. Rate : 072 BPM Atrial Rate : 072 BPM P-R Int : 178 ms QRS Dur : 078 ms QT Int : 368 ms P-R-T Axes : 061 -02 046 degrees QTc Int : 402 ms Normal sinus rhythm Normal ECG When compared with ECG of 22-NOV-2021 14:34, Right bundle branch block is no longer Present Referred By: Manuel Vazquez Electronically Signed By:Malcolm Price
[2023-09-25 05:37] VITALS: BP 139/79; PULSE 96; RESP 16; TEMP 36.4; O2SAT 96
[2023-09-25] MEDS: Levothyroxine Sodium 100 MCG TABLET PO (05:59)
[2023-09-25] MEDS: Omeprazole 40 MG CAPSULE.DR PO (05:59)
[2023-09-25] MEDS: Acetaminophen 325 MG TABLET 650 MG PO (05:59)
[2023-09-25] MEDS: modafiniL 100 MG TABLET 200 MG PO ×2 (08:25→11:41)
[2023-09-25] MEDS: ALPRAZolam 0.25 MG TABLET PO ×3 (08:25→18:22)
[2023-09-25 09:11] VITALS: BP 129/77; PULSE 77; RESP 16; TEMP 36.6; O2SAT 98
[2023-09-25] MEDS: DULoxetine HCl 60 MG CAPSULE.DR PO ×2 (09:11→20:31)
[2023-09-25] MEDS: oxyCODONE HCl Immed Release 5 MG TABLET 2.5 MG PO ×3 (09:11→20:31)
--- NOTE | 2023-09-25 09:47 | PC.NURSE ---
Assumed care of patient at 0645. Patient is observed resting in her bed. No signs of distress observed. Breathing is even and unlabored. Will continue plan of care.
[2023-09-25] MEDS: Clindamycin HCL 300 MG CAPSULE PO ×3 (11:42→23:21)
[2023-09-25 14:24] VITALS: BMI 24.4
--- NOTE | 2023-09-25 14:54 | PC.ADMIT ---
Patient admitted to S1 from [facility] ED at 1305 via W/C on CV. Admitting diagnosis is Unspecified Depressive Disorder/Agoraphobia. Patient is known to [facility] through previous admission. Patient self presented to ED d/t tooth pain/infection which had worsened d/t her inability to leave her home. Patient attired in hospital [facility]. Appears well groomed. Alert and oriented in all spheres with good insight into situation. Patient reports she has struggled with anxiety and depression throughout her life with obsessions and compulsions related to cleanliness during adult life. Patient states she is embarassed by the way she looks and has not left her home in a year. Patient endorsed depressed mood, anxiety, feeling hopeless and experiencing suicidal ideation daily without plan. Ibeth denies SI and is able to contract for safety. Patient denies AH/VH and does not appear to be responding to internal stimuli. Belongings inventoried. Medications delivered to pharmacy. Oriented to unit. Observed sitting at table in dining room snacking on ice cream.
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
[2023-09-25] MEDS: hydrOXYzine HCL 25 MG TABLET PO (17:29)
--- NOTE | 2023-09-25 18:44 | PC.NURSE ---
Patient c/o anxiety. Medicated with Hydroxyzine [address] Tran notified and ordered one time dose of Alprazolam 0.25 which was administered at 1820. Will continue to monitor.
[2023-09-25 20:00] VITALS: BP 115/67; PULSE 90; RESP 18; TEMP 37; O2SAT 96
[2023-09-25] MEDS: clonazePAM 1 MG TABLET PO (20:30)
[2023-09-25] MEDS: QUEtiapine Fumarate 100 MG TABLET PO (20:31)
[2023-09-25] MEDS: Amitriptyline HCl 50 MG TABLET PO (20:31)
[2023-09-25] MEDS: traZODone HCL 100 MG TABLET PO (20:31)
[2023-09-25] MEDS: Gabapentin 100 MG CAPSULE PO (20:40)
[2023-09-26] MEDS: Omeprazole 40 MG CAPSULE.DR PO (05:36)
[2023-09-26] MEDS: Clindamycin HCL 300 MG CAPSULE PO ×3 (05:36→17:21)
[2023-09-26] MEDS: Levothyroxine Sodium 100 MCG TABLET PO (05:36)
[2023-09-26] MEDS: hydrOXYzine HCL 25 MG TABLET PO (05:37)
[2023-09-26 08:00] VITALS: BP 106/66; PULSE 87; RESP 18; TEMP 36.7; O2SAT 97
[2023-09-26] MEDS: oxyCODONE HCl Immed Release 5 MG TABLET 2.5 MG PO ×3 (08:58→20:52)
[2023-09-26] MEDS: DULoxetine HCl 60 MG CAPSULE.DR PO ×2 (08:59→20:53)
[2023-09-26] MEDS: Metoclopramide HCl 10 MG TABLET PO (08:59)
[2023-09-26] MEDS: Gabapentin 100 MG CAPSULE PO ×3 (09:03→20:51)
[2023-09-26 09:18] LABS: Alanine Aminotransferase 16 U/L (0-31); Albumin Level 4.5 g/dL (3.5-5.0); Alkaline Phosphatase 144 U/L (39-117); Anion Gap 14 (12-20); Aspartate Amino Transferase 23 U/L (5-31); Bilirubin Total 0.3 mg/dL (0.0-1.0); Blood Urea Nitrogen 15 mg/dL (9-16); Calcium 10.5 mg/dL (8.4-10.2); Carbon Dioxide 28 mmol/L (22-29); Chloride 103 mmol/L (96-108); Cholesterol 219 mg/dL (<200); Creatinine Clr Calc Pharmacy 41.6; Estimated Glomerular Filt Rate 53; Glucose Fasting 78 mg/dL (60-99); HDL Cholesterol 71 mg/dL (>40); LDL Cholesterol Calculated 119 mg/dL (<100); Potassium 3.9 mmol/L (3.3-5.1); Sodium 141 mmol/L (135-145); Total Protein 8.1 g/dL (6.5-8.0); Triglycerides 149 mg/dL (<150)
[2023-09-26] MEDS: ALPRAZolam 0.25 MG TABLET PO ×3 (09:34→20:51)
[2023-09-26 09:35] LABS: Free T4 (Free Thyroxine) 1.15 ng/dL (0.71-1.85); Thyroid Stimulating Hormone < 0.01 uIU/mL (0.32-4.0)
[2023-09-26] MEDS: modafiniL 100 MG TABLET 200 MG PO (12:17)
[2023-09-26] MEDS: Cariprazine HCl 1.5 MG CAPSULE PO (12:17)
--- NOTE | 2023-09-26 13:01 | P.CNGI_ITS ---
History of Present Illness Data of Consult Service Date: 09/26/23 Requesting physician: Jay Tran Primary Care Provider: Blank Riggins MD HPI Reason for consult: dysphagia 72-year-old female with very limited supports admitted to [facility] on 09/25/23 with worsening depression marked anxiety increasing inability to care her for herself not able to leave the house not going to medical appointments crying depressed and hopeless much of the time. GI consulted for evaluation of dysphagia Pt reports a hx of dysphagia to solid food for the past 5 years. Per pt, she had an EGD with balloon dilation 4 years ago at [facility] Pt was infomred she had a stricture which needed treatment with repeat EGD with dilation x 2. She did not schedule repeat EGDs due to issues with her worsening anxiety and depression She continues to have dysphagia and her diet is limited to ice cream and liquids She notes heartburn twice a week and denies taking any medications for heartburn. Patient admits to chronic constipation (she was taking Miralax and a stool softerner) and denies abdominal pain, change in appetite or weight. Pt reports past hx of rectal bleeding from hemorrhoids a year ago and had a hemorrhoidectomy. She denies having a colonoscopy in the past. She denies a history of sleep apnea or cardiac or pulmonary problems Pt admits to taking Ibuprofen twice daily. Pt has a remote hx of smoking and denies ETOH abuse. Pt is and lives by herself. 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 Pt had one son who in an MVA. Patient denies known family history of colon polyps or cancer. Review of Systems 2 Review of Systems: Yes all other systems are reviewed and are negative [facility] Past Medical History Medical History Hyponatremia Post traumatic stress disorder (PTSD) Depression, major, severe recurrence Acute anxiety OCD (obsessive compulsive disorder) PTSD (post-traumatic stress disorder) Torn rotator cuff Hx of herpes zoster virus Depression Anxiety Non-Hodgkin lymphoma in remission Social History Social History Household Members: None Housing: Condominium Do you presently have visiting nurse or other home services: No Patient Tobacco Use Status: Never used Tobacco e-Cigarette/Vaping Use: Never Used Second Hand Smoke Exposure: No Use of substances other than those prescribed or required for medical reasons: No Currently Displaying Signs/Symptoms of Drug Intoxication Withdrawal: No Have you been hit, kicked, punched, or otherwise hurt by someone within the past year? If so, by whom?: No Do you feel safe in your current relationship?: No Current Relationship Is there a partner from a previous relationship who is making you feel unsafe now?: No Are you made to feel afraid or neglected: No Advance Directives: No Advance Directives Information Provided: Yes Do you have thoughts of harming others: None Do you have a plan to hurt others: No Plan Recently lost weight without trying: No Eating poorly because of decreased appetite: No Patient : No : No Poor oral hygiene: No service: No Sexual orientation: Straight/Heterosexual Meds Allergies Allergy/AdvReac Type Severity Reaction Status Date / Time prednisone [PREDNISONE] Allergy Mild HIVES Verified 09/24/23 05:29 tramadol [TRAMADOL] Allergy Mild HIVES Verified 09/24/23 05:29 penicillin G Allergy Unknown Unknown Verified 09/24/23 05:29 Penicillins [PENICILLINS] Allergy Unknown RASH Verified 09/24/23 05:29 methylprednisolone AdvReac Unknown VOMITING Verified 09/24/23 05:29 [METHYLPREDNISOLONE] Active Medications: Current Medications Acetaminophen (Acetaminophen 325 Mg Tablet) 650 mg PO Q6H PRN PRN Reason: Headache/Pain Mild Scale (1-3) Al Hydroxide/Mg Hydroxide (Magnesium Hydrox/Alum Hydrox 30 Ml Oral.Susp) 30 ml PO Q6H PRN PRN Reason: Heartburn/Nausea Albuterol Sulfate (Albuterol Sulfate 90 Mcg 8 Gm Inhaler) 1 puff INHALE RQID PRN PRN Reason: Shortness Of Breath Alprazolam (Alprazolam 0.25 Mg Tablet) 0.25 mg PO BID MCKAYLA Last Admin: 09/26/23 09:34 Dose: 0.25 mg Alprazolam (Alprazolam 0.25 Mg Tablet) 0.25 mg PO BID PRN PRN Reason: anxiety Last Admin: 09/26/23 12:21 Dose: 0.25 mg Amitriptyline HCl (Amitriptyline Hcl 25 Mg Tablet) 75 mg PO BEDTIME MCKAYLA Cariprazine (Cariprazine Hcl 1.5 Mg Capsule) 1.5 mg PO DAILY [facility] Last Admin: 09/26/23 12:17 Dose: 1.5 mg Clindamycin HCl (Clindamycin Hcl 300 Mg Capsule) 300 mg PO Q6H [facility] Last Admin: 09/26/23 12:17 Dose: 300 mg Clonazepam (Clonazepam 1 Mg Tablet) 1 mg PO BEDTIME [facility] Last Admin: 09/25/23 20:30 Dose: 1 mg Duloxetine HCl (Duloxetine Hcl 60 Mg Capsule.Dr) 60 mg PO BID [facility] Last Admin: 09/26/23 08:59 Dose: 60 mg Gabapentin (Gabapentin 100 Mg Capsule) 100 mg PO TID [facility] Levothyroxine Sodium (Levothyroxine Sodium 100 Mcg Tablet) 100 mcg PO DAILY@0600 [facility] Last Admin: 09/26/23 05:36 Dose: 100 mcg Magnesium Hydroxide (Milk Of Magnesia 30 Ml Oral.Susp) 30 ml PO DAILY PRN PRN Reason: Constipation Metoclopramide HCl (Metoclopramide Hcl 10 Mg Tablet) 10 mg PO Q48H [facility] Last Admin: 09/26/23 08:59 Dose: 10 mg Modafinil (Modafinil 100 Mg Tablet) 200 mg PO BID@0800,1200 [facility] Last Admin: 09/26/23 12:17 Dose: 200 mg Omeprazole (Omeprazole 40 Mg Capsule.Dr) 40 mg PO DAILY@0630 [facility] Last Admin: 09/26/23 05:36 Dose: 40 mg Oxycodone HCl (Oxycodone Hcl Immed Release 5 Mg Tablet) 2.5 mg PO TID [facility] Last Admin: 09/26/23 08:58 Dose: 2.5 mg Quetiapine Fumarate (Quetiapine Fumarate 100 Mg Tablet) 100 mg PO BEDTIME [facility] Last Admin: 09/25/23 20:31 Dose: 100 mg Quetiapine Fumarate (Quetiapine Fumarate 25 Mg Tablet) 25 mg PO Q4H PRN PRN Reason: severe anxiety Trazodone HCl (Trazodone Hcl 100 Mg Tablet) 100 mg PO BEDTIME [facility] Last Admin: 09/25/23 20:31 Dose: 100 mg Home Medications ?Medication ?Instructions ?Recorded ?Confirmed ?Last Taken ?Type estradiol 0.025 mg/24 hr weekly 1 patch topical QWEEK 11/17/21 09/24/23 Unknown History transdermal patch ipratropium 20 mcg-albuterol 100 1 puff inhalation QID 11/17/21 09/24/23 11/17/21 History mcg/actuation mist for inhalation (Combivent Respimat) levothyroxine 100 mcg tablet 1 tab PO DAILY 11/17/21 09/24/23 11/17/21 History metoclopramide HCl 10 mg tablet 1 tab PO Q48H 11/17/21 09/24/23 Unknown History oxycodone-acetaminophen 5 mg-325 0.5 tab PO TID 11/17/21 09/24/23 11/17/21 History mg tablet naloxone 4 mg/actuation nasal spray 1 spray intranasal DAILY 04/23/22 09/24/23 Unknown History estradiol 0.025 mg/24 hr weekly 1 patch transdermal QWEEK 09/25/23 09/25/23 09/22/23 History transdermal patch 0.025 trazodone 100 mg tablet 100 - 200 mg PO BEDTIME PRN 09/25/23 09/25/23 09/23/23 History insomnia 100 mg Physical Exam 2 Vital Signs: Vital Signs: Last Vital Signs Temp 98.1 F 09/26/23 08:00 Pulse 87 09/26/23 08:00 Resp 18 09/26/23 08:00 BP 106/66 09/26/23 08:00 Pulse Ox 97 09/26/23 08:00 O2 Del Method Room Air 09/26/23 08:00 BMI result Body Mass Index 24.4 Const: General: no acute distress and anxious Nutritional Appearance: a verage body habitus Orientation/consciousness: patient oriented x3 HEENT: Head: Yes normal to inspection Ears: hearing grossly normal bilaterally Eyes: Sclerae: sclerae normal Pupils: Equal, round and reactive pupils present Neck: Neck: Yes normal visual inspection Chest: Chest palpation & inspection: normal inspection of the chest Resp: Effort & Inspection: normal respiratory effort Auscultation: clear to auscultation bilaterally Cardio: Palpation: normal PMI Rate: regular rate Rhythm: regular rhythm Heart sounds: S1 normal heart sound present, S2 normal heart sound present and no murmurs GI: Palpation (GI): Soft to palpation, nontender and No hepatosplenomegaly present Auscultation: normal bowel sounds Rectal Exam - Female: deferred Skin: General skin exam: no rashes or lesions noted Neuro: General: patient oriented x3, gait normal and moves all extremities Cranial nerves: Yes Equal, round and reactive pupils present Psych: Appearance: grossly normal Mental Status: mental status grossly normal Results Labs 09/24/23 07:26 09/26/23 08:45 Labs: [facility] 09/26/23 08:45 Sodium 141 Potassium 3.9 Chloride 103 Carbon Dioxide 28 BUN 15 Creatinine 1.02 Calcium 10.5 H D Liver Function 09/26/23 Range/Units 08:45 Total Bilirubin 0.3 (0.0-1.0) mg/dL AST 23 (5-31) U/L ALT 16 (0-31) U/L Alkaline Phosphatase 144 H (39-117) U/L Albumin 4.5 (3.5-5.0) g/dL Assessment and Plan (1) Dysphagia: Qualifiers: Dysphagia type: esophageal phase Qualified Code(s): R13.19 - Other dysphagia Status: Acute Plan 72-year-old female with very limited supports admitted to [facility] on 09/25/23 with worsening depression marked anxiety. Pt reports a hx of dysphagia to solid food for the past 5 years. Per pt, she had an EGD with balloon dilation 4 years ago at [facility] ([place] Pt was informed she had a stricture which needed treatment with repeat EGD with dilation x 2. She did not schedule repeat EGDs due to issues with her worsening anxiety and depression PD She continues to have dysphagia and her diet is limited to ice cream and liquids Dysphagia is likely due to esophagitis with stricture or Schatzki's ring. RECOMMENDATIONS: 1. Agree with Omeprazole 20 mg daily 2. Miralax once a day for constipation 3. Pt scheduled for an EGD scheduled on 09/29/23. EGD procedure and potential complications including bleeding, perforation, reaction to medications and aspiration were reviewed with the patient. Procedures Date of Service Date of Service: 09/27/23
--- NOTE | 2023-09-26 14:20 | PC.NURSE ---
MEdicated with PRN Alprazolam 0.25 for c/o anxiety with good effect.
[2023-09-26] MEDS: Acetaminophen 325 MG TABLET 650 MG PO (17:24)
[2023-09-26 20:00] VITALS: BP 122/63; PULSE 90; RESP 16; TEMP 36.7; O2SAT 96
[2023-09-26] MEDS: clonazePAM 1 MG TABLET PO (20:51)
[2023-09-26] MEDS: traZODone HCL 100 MG TABLET PO (20:51)
[2023-09-26] MEDS: QUEtiapine Fumarate 100 MG TABLET PO (20:51)
[2023-09-26] MEDS: Amitriptyline HCl 25 MG TABLET 75 MG PO (20:53)
--- NOTE | 2023-09-26 21:24 | P.PNPSI_ITS ---
Subjective Subjective Date of Service: 09/26/23 Reason For Visit: Severe depression anxiety Subjective Notes: Conditional Voluntary Interim History: Patient seen started on Vraylar amitriptyline increase 75 mg alprazolam serum 0.25 b.i.d. 1 mg Klonopin at bedtime. Patient anxious dysphoric rigid thoughts things need to be just so does not tolerate alteration denies active SI Medication Compliance: Yes Review of Systems dysphagia Mental Status Exam Mental Status Exam Patient Orientation: Person, Place, Time and Situation Level of Consciousness: Awake Patient Behavior: Talkative and Anxious Mood Description: Constricted, Depressed and Apprehensive Affect Description: Apprehensive Ability to Follow Directions: Good Speech Pattern: Clear Memory Description: Intact Hallucinations: None Delusions: Not Present Thought Content: positive for Obsessional Thoughts, positive for Preoccupation, positive for Suicidal Ideation (Passive SI at times) and negative for Homicidal Ideation Depressive Symptoms: Increased Anxiety, Feelings of Worthlessness, Hopelessness, Thoughts of /Suicide, Loss of Energy and Difficulty Concentrating Judgement: Fair Judgement and Insight: she is open to seeing a therapist she is open to getting help from [facility] she is willing to connect with the [facility] she again agreed to above states she has called her primary care doctor's office but seem to understand that she did be seen regarding her question of dental infection Diagnostics Vital Signs (24Hr): Vital Signs - 24 hr 09/26/23 08:00 Temperature 98.1 F Pulse Rate 87 Respiratory Rate 18 Blood Pressure 106/66 Pulse Oximetry 97 Oxygen Delivery Method Room Air BMI result Body Mass Index 24.4 Labs 09/24/23 07:26 09/26/23 08:45 Labs: Laboratory Results - last 48 hr 09/26/23 08:45 Sodium 141 Potassium 3.9 Chloride 103 Carbon Dioxide 28 Anion Gap 14 BUN 15 Creatinine 1.02 Estim Creat Clear Calc 41.6 Estimated GFR 53 Fasting Glucose 78 Calcium 10.5 H D Total Bilirubin 0.3 AST 23 ALT 16 Alkaline Phosphatase 144 H Total Protein 8.1 H Albumin 4.5 Triglycerides 149 Cholesterol 219 H LDL Cholesterol, Calc 119 H HDL Cholesterol 71 TSH < 0.01 L Free T4 1.15 Medications Medications Current Medications Acetaminophen (Acetaminophen 325 Mg Tablet) 650 mg PO Q6H PRN PRN Reason: Headache/Pain Mild Scale (1-3) Last Admin: 09/26/23 17:24 Dose: 650 mg Al Hydroxide/Mg Hydroxide (Magnesium Hydrox/Alum Hydrox 30 Ml Oral.Susp) 30 ml PO Q6H PRN PRN Reason: Heartburn/Nausea Albuterol Sulfate (Albuterol Sulfate 90 Mcg 8 Gm Inhaler) 1 puff INHALE RQID PRN PRN Reason: Shortness Of Breath Alprazolam (Alprazolam 0.25 Mg Tablet) 0.25 mg PO BID COUNTS INCLUDE 234 BEDS AT THE [facility] Last Admin: 09/26/23 20:51 Dose: 0.25 mg Alprazolam (Alprazolam 0.25 Mg Tablet) 0.25 mg PO BID PRN PRN Reason: anxiety Last Admin: 09/26/23 12:21 Dose: 0.25 mg Amitriptyline HCl (Amitriptyline Hcl 25 Mg Tablet) 75 mg PO BEDTIME COUNTS INCLUDE 234 BEDS AT THE [facility] Last Admin: 09/26/23 20:53 Dose: 75 mg Cariprazine (Cariprazine Hcl 1.5 Mg Capsule) 1.5 mg PO DAILY COUNTS INCLUDE 234 BEDS AT THE [facility] Last Admin: 09/26/23 12:17 Dose: 1.5 mg Clindamycin HCl (Clindamycin Hcl 300 Mg Capsule) 300 mg PO Q6H COUNTS INCLUDE 234 BEDS AT THE [facility] Last Admin: 09/26/23 17:21 Dose: 300 mg Clonazepam (Clonazepam 1 Mg Tablet) 1 mg PO BEDTIME COUNTS INCLUDE 234 BEDS AT THE [facility] Last Admin: 09/26/23 20:51 Dose: 1 mg Duloxetine HCl (Duloxetine Hcl 60 Mg Capsule.Dr) 60 mg PO BID COUNTS INCLUDE 234 BEDS AT THE [facility] Last Admin: 09/26/23 20:53 Dose: 60 mg Gabapentin (Gabapentin 100 Mg Capsule) 100 mg PO TID COUNTS INCLUDE 234 BEDS AT THE [facility] Last Admin: 09/26/23 20:51 Dose: 100 mg Levothyroxine Sodium (Levothyroxine Sodium 100 Mcg Tablet) 100 mcg PO DAILY@0600 COUNTS INCLUDE 234 BEDS AT THE [facility] Last Admin: 09/26/23 05:36 Dose: 100 mcg Magnesium Hydroxide (Milk Of Magnesia 30 Ml Oral.Susp) 30 ml PO DAILY PRN PRN Reason: Constipation Metoclopramide HCl (Metoclopramide Hcl 10 Mg Tablet) 10 mg PO Q48H COUNTS INCLUDE 234 BEDS AT THE [facility] Last Admin: 09/26/23 08:59 Dose: 10 mg Modafinil (Modafinil 100 Mg Tablet) 200 mg PO BID@0800,1200 COUNTS INCLUDE 234 BEDS AT THE [facility] Last Admin: 09/26/23 12:17 Dose: 200 mg Omeprazole (Omeprazole 40 Mg Capsule.Dr) 40 mg PO DAILY@0630 COUNTS INCLUDE 234 BEDS AT THE [facility] Last Admin: 09/26/23 05:36 Dose: 40 mg Oxycodone HCl (Oxycodone Hcl Immed Release 5 Mg Tablet) 2.5 mg PO TID COUNTS INCLUDE 234 BEDS AT THE [facility] Last Admin: 09/26/23 20:52 Dose: 2.5 mg Quetiapine Fumarate (Quetiapine Fumarate 100 Mg Tablet) 100 mg PO BEDTIME COUNTS INCLUDE 234 BEDS AT THE [facility] Last Admin: 09/26/23 20:51 Dose: 100 mg Quetiapine Fumarate (Quetiapine Fumarate 25 Mg Tablet) 25 mg PO Q4H PRN PRN Reason: severe anxiety Trazodone HCl (Trazodone Hcl 100 Mg Tablet) 100 mg PO BEDTIME COUNTS INCLUDE 234 BEDS AT THE [facility] Last Admin: 09/26/23 20:51 Dose: 100 mg Allergies Allergies Allergy/AdvReac Type Severity Reaction Status Date / Time prednisone [PREDNISONE] Allergy Mild HIVES Verified 09/24/23 05:29 tramadol [TRAMADOL] Allergy Mild HIVES Verified 09/24/23 05:29 penicillin G Allergy Unknown Unknown Verified 09/24/23 05:29 Penicillins [PENICILLINS] Allergy Unknown RASH Verified 09/24/23 05:29 methylprednisolone AdvReac Unknown VOMITING Verified 09/24/23 05:29 [METHYLPREDNISOLONE] Assessment & Plan Assessment & Plan (1) OCD (obsessive compulsive disorder): Status: Acute Code(s): F42.9 - Obsessive-compulsive disorder, unspecified (2) Post traumatic stress disorder (PTSD): Status: Acute Code(s): F43.10 - Post-traumatic stress disorder, unspecified (3) Depression, major, severe recurrence: Status: Acute Code(s): F33.2 - Major depressive disorder, recurrent severe without psychotic features (4) Dysphagia: Status: Acute Code(s): R13.10 - Dysphagia, unspecified (5) Agoraphobia with panic disorder: Status: Acute Code(s): F40.01 - Agoraphobia with panic disorder Plan EGD scheduled on 09/29/23 Encourage out of bed encourage going outside trying to challenge anxiety symptoms patient totally housebound has not been able to keep up with medical condition psychiatric appointments or labs vraylar encourage home based tx Patient educated on: diagnosis, medication risk/benefits and therapeutic strategies Informed Consent: understands Reason for continued inpatient stay Substantial Risk for: harm to self, inability to function and med/psych decompensation Time Spent With Patient Time: Total time managing care of this patient today ____ minutes.
[2023-09-27] MEDS: Clindamycin HCL 300 MG CAPSULE PO ×5 (00:12→23:47)
[2023-09-27] MEDS: Omeprazole 40 MG CAPSULE.DR PO (06:17)
[2023-09-27] MEDS: Levothyroxine Sodium 100 MCG TABLET PO (06:17)
[2023-09-27] MEDS: Acetaminophen 325 MG TABLET 650 MG PO (06:47)
[2023-09-27] MEDS: ALPRAZolam 0.25 MG TABLET PO ×3 (06:50→20:12)
[2023-09-27] MEDS: oxyCODONE HCl Immed Release 5 MG TABLET 2.5 MG PO ×3 (08:55→20:09)
[2023-09-27] MEDS: Gabapentin 100 MG CAPSULE PO ×3 (08:55→20:12)
[2023-09-27] MEDS: modafiniL 100 MG TABLET 200 MG PO ×2 (08:56→12:06)
[2023-09-27] MEDS: Cariprazine HCl 1.5 MG CAPSULE PO (08:56)
[2023-09-27] MEDS: DULoxetine HCl 60 MG CAPSULE.DR PO ×2 (08:56→20:12)
[2023-09-27 09:05] VITALS: BP 122/76; PULSE 102; RESP 17; TEMP 36.8; O2SAT 97
[2023-09-27] MEDS: polyethylene glycoL 3350 17 GM POWD.PACK PO (14:09)
--- NOTE | 2023-09-27 14:37 | P.PNPSI_ITS ---
Subjective Subjective Date of Service: 09/27/23 Reason For Visit: Severe depression anxiety Subjective Notes: Conditional Voluntary Healthcare Proxy: No Interim History: pt seen case reviewed tx team estiven started easily flustered overewhelmed cooperative with leaving her room and going outside Medication Compliance: Yes Attending Groups: Yes Mental Status Exam Mental Status Exam Patient Orientation: Person, Place, Time and Situation Level of Consciousness: Awake Patient Behavior: Talkative and Anxious Mood Description: Constricted, Anxious, Labile and Apprehensive Affect Description: Anxious, Labile and Apprehensive Ability to Follow Directions: Good Speech Pattern: Clear Memory Description: Intact Hallucinations: None Delusions: Not Present Thought Content: positive for Obsessional Thoughts, positive for Preoccupation, negative for Suicidal Ideation (Passive SI at times) or negative for Homicidal Ideation Depressive Symptoms: Increased Anxiety, Feelings of Worthlessness, Hopelessness, Thoughts of /Suicide, Loss of Energy and Difficulty Concentrating Judgement: Fair Judgement and Insight: Easily overwhelmed and frustrated at perceive minor slights Diagnostics Vital Signs (24Hr): Vital Signs - 24 hr 09/26/23 20:00 09/27/23 09:05 Temperature 98.1 F 98.2 F Pulse Rate 90 102 H Respiratory Rate 16 17 Blood Pressure 122/63 122/76 Pulse Oximetry 96 97 Oxygen Delivery Method Room Air Room Air BMI result Body Mass Index 24.4 Labs 09/24/23 07:26 09/26/23 08:45 Labs: Laboratory Results - last 48 hr 09/26/23 08:45 Sodium 141 Potassium 3.9 Chloride 103 Carbon Dioxide 28 Anion Gap 14 BUN 15 Creatinine 1.02 Estim Creat Clear Calc 41.6 Estimated GFR 53 Fasting Glucose 78 Calcium 10.5 H D Total Bilirubin 0.3 AST 23 ALT 16 Alkaline Phosphatase 144 H Total Protein 8.1 H Albumin 4.5 Triglycerides 149 Cholesterol 219 H LDL Cholesterol, Calc 119 H HDL Cholesterol 71 TSH < 0.01 L Free T4 1.15 Medications Medications Current Medications Acetaminophen (Acetaminophen 325 Mg Tablet) 650 mg PO Q6H PRN PRN Reason: Headache/Pain Mild Scale (1-3) Last Admin: 09/27/23 06:47 Dose: 650 mg Al Hydroxide/Mg Hydroxide (Magnesium Hydrox/Alum Hydrox 30 Ml Oral.Susp) 30 ml PO Q6H PRN PRN Reason: Heartburn/Nausea Albuterol Sulfate (Albuterol Sulfate 90 Mcg 8 Gm Inhaler) 1 puff INHALE RQID PRN PRN Reason: Shortness Of Breath Alprazolam (Alprazolam 0.25 Mg Tablet) 0.25 mg PO BID [facility] Last Admin: 09/27/23 08:56 Dose: 0.25 mg Alprazolam (Alprazolam 0.25 Mg Tablet) 0.25 mg PO BID PRN PRN Reason: anxiety Last Admin: 09/27/23 06:50 Dose: 0.25 mg Amitriptyline HCl (Amitriptyline Hcl 25 Mg Tablet) 75 mg PO BEDTIME [facility] Last Admin: 09/26/23 20:53 Dose: 75 mg Cariprazine (Cariprazine Hcl 1.5 Mg Capsule) 1.5 mg PO DAILY [facility] Last Admin: 09/27/23 08:56 Dose: 1.5 mg Clindamycin HCl (Clindamycin Hcl 300 Mg Capsule) 300 mg PO Q6H [facility] Last Admin: 09/27/23 12:06 Dose: 300 mg Clonazepam (Clonazepam 1 Mg Tablet) 1 mg PO BEDTIME [facility] Last Admin: 09/26/23 20:51 Dose: 1 mg Duloxetine HCl (Duloxetine Hcl 60 Mg Capsule.Dr) 60 mg PO BID [facility] Last Admin: 09/27/23 08:56 Dose: 60 mg Gabapentin (Gabapentin 100 Mg Capsule) 100 mg PO TID [facility] Last Admin: 09/27/23 08:55 Dose: 100 mg Levothyroxine Sodium (Levothyroxine Sodium 100 Mcg Tablet) 100 mcg PO DAILY@0600 [facility] Last Admin: 09/27/23 06:17 Dose: 100 mcg Magnesium Hydroxide (Milk Of Magnesia 30 Ml Oral.Susp) 30 ml PO DAILY PRN PRN Reason: Constipation Metoclopramide HCl (Metoclopramide Hcl 10 Mg Tablet) 10 mg PO Q48H [facility] Last Admin: 09/26/23 08:59 Dose: 10 mg Modafinil (Modafinil 100 Mg Tablet) 200 mg PO BID@0800,1200 [facility] Last Admin: 09/27/23 12:06 Dose: 200 mg Omeprazole (Omeprazole 40 Mg Capsule.Dr) 40 mg PO DAILY@0630 [facility] Last Admin: 09/27/23 06:17 Dose: 40 mg Oxycodone HCl (Oxycodone Hcl Immed Release 5 Mg Tablet) 2.5 mg PO TID [facility] Last Admin: 09/27/23 08:55 Dose: 2.5 mg Polyethylene Glycol (Polyethylene Glycol 3350 17 Gm Powd.Pack) 17 gm PO DAILY PRN PRN Reason: Constipation Last Admin: 09/27/23 14:09 Dose: 17 gm Quetiapine Fumarate (Quetiapine Fumarate 100 Mg Tablet) 100 mg PO BEDTIME [facility] Last Admin: 09/26/23 20:51 Dose: 100 mg Quetiapine Fumarate (Quetiapine Fumarate 25 Mg Tablet) 25 mg PO Q4H PRN PRN Reason: severe anxiety Trazodone HCl (Trazodone Hcl 50 Mg Tablet) 50 mg PO BEDTIME [facility] Allergies Allergies Allergy/AdvReac Type Severity Reaction Status Date / Time prednisone [PREDNISONE] Allergy Mild HIVES Verified 09/24/23 05:29 tramadol [TRAMADOL] Allergy Mild HIVES Verified 09/24/23 05:29 penicillin G Allergy Unknown Unknown Verified 09/24/23 05:29 Penicillins [PENICILLINS] Allergy Unknown RASH Verified 09/24/23 05:29 methylprednisolone AdvReac Unknown VOMITING Verified 09/24/23 05:29 [METHYLPREDNISOLONE] Assessment & Plan Assessment & Plan (1) OCD (obsessive compulsive disorder): Status: Acute Code(s): F42.9 - Obsessive-compulsive disorder, unspecified (2) Post traumatic stress disorder (PTSD): Status: Acute Code(s): F43.10 - Post-traumatic stress disorder, unspecified (3) Depression, major, severe recurrence: Status: Acute Code(s): F33.2 - Major depressive disorder, recurrent severe without psychotic features Plan Patient is started on Vraylar for depression increase amitriptyline 75 at bedtime lower trazodone to 50 mg daily alprazolam 0.25 b.i.d. scheduled does not like how she feels on Seroquel p.r.n. which will be discontinued she was seen by gastroenterology extensive review with patient behavioral techniques Patient educated on: diagnosis and medication risk/benefits Informed Consent: understands Reason for continued inpatient stay Substantial Risk for: inability to function, rapid decompensation and med/psych decompensation Time Spent With Patient Time: Total time managing care of this patient today ____ minutes.
[2023-09-27 20:00] VITALS: BP 148/74; PULSE 94; RESP 16; TEMP 36.3; O2SAT 98
[2023-09-27] MEDS: traZODone HCL 50 MG TABLET PO (20:12)
[2023-09-27] MEDS: clonazePAM 1 MG TABLET PO (20:12)
[2023-09-27] MEDS: QUEtiapine Fumarate 100 MG TABLET PO (20:12)
[2023-09-27] MEDS: Amitriptyline HCl 25 MG TABLET 75 MG PO (20:12)
[2023-09-28] MEDS: Levothyroxine Sodium 100 MCG TABLET PO (06:17)
[2023-09-28] MEDS: Clindamycin HCL 300 MG CAPSULE PO ×3 (06:17→17:13)
[2023-09-28] MEDS: Omeprazole 40 MG CAPSULE.DR PO (06:17)
[2023-09-28 07:30] VITALS: BP 138/77; PULSE 99; RESP 17; TEMP 36.1; O2SAT 97
[2023-09-28] MEDS: oxyCODONE HCl Immed Release 5 MG TABLET 2.5 MG PO ×3 (07:45→20:46)
[2023-09-28] MEDS: Metoclopramide HCl 10 MG TABLET PO (07:45)
[2023-09-28] MEDS: ALPRAZolam 0.25 MG TABLET PO ×3 (07:46→20:45)
[2023-09-28] MEDS: DULoxetine HCl 60 MG CAPSULE.DR PO ×2 (07:46→20:47)
[2023-09-28] MEDS: Gabapentin 100 MG CAPSULE PO ×3 (07:46→20:46)
[2023-09-28] MEDS: Cariprazine HCl 1.5 MG CAPSULE PO (07:46)
[2023-09-28] MEDS: modafiniL 100 MG TABLET 200 MG PO ×2 (07:47→11:20)
--- NOTE | 2023-09-28 10:51 | HO.PSYCHPN ---
Subjective Subjective Date of Service: 09/28/23 Reason For Visit: Severe depression anxiety Subjective Notes: Conditional Voluntary Healthcare Proxy: No Guardianship: No Interim History: Patient anxious but oriented difficult time around others tolerating vraylar remains depressed and anxious does leave her room overwhelmed easily becomes agitated Medication Compliance: Yes Side effects from medications: No Mental Status Exam Mental Status Exam Patient Orientation: Person, Place, Time and Situation Level of Consciousness: Awake Patient Behavior: Talkative, Anxious and Impulsive Mood Description: Constricted, Anxious, Labile and Apprehensive Affect Description: Anxious, Labile and Apprehensive Ability to Follow Directions: Good Speech Pattern: Clear Memory Description: Intact Hallucinations: None Delusions: Not Present Thought Process: Distracted and Rumination Thought Content: positive for Obsessional Thoughts, positive for Preoccupation, negative for Suicidal Ideation (Passive SI at times) or negative for Homicidal Ideation Depressive Symptoms: Increased Anxiety, Feelings of Worthlessness, Hopelessness, Thoughts of /Suicide, Loss of Energy and Difficulty Concentrating Judgement: Fair Judgement and Insight: Easily overwhelmed and frustrated at perceive minor slights Diagnostics Vital Signs (24Hr): Vital Signs - 24 hr 09/27/23 20:00 09/28/23 07:30 Temperature 97.3 F 97 F Pulse Rate 94 99 Respiratory Rate 16 17 Blood Pressure 148/74 H 138/77 Pulse Oximetry 98 97 Oxygen Delivery Method Room Air Room Air BMI result Body Mass Index 24.4 Labs 09/24/23 07:26 09/26/23 08:45 Medications Medications Current Medications Acetaminophen (Acetaminophen 325 Mg Tablet) 650 mg PO Q6H PRN PRN Reason: Headache/Pain Mild Scale (1-3) Last Admin: 09/27/23 06:47 Dose: 650 mg Al Hydroxide/Mg Hydroxide (Magnesium Hydrox/Alum Hydrox 30 Ml Oral.Susp) 30 ml PO Q6H PRN PRN Reason: Heartburn/Nausea Albuterol Sulfate (Albuterol Sulfate 90 Mcg 8 Gm Inhaler) 1 puff INHALE RQID PRN PRN Reason: Shortness Of Breath Alprazolam (Alprazolam 0.25 Mg Tablet) 0.25 mg PO BID [facility] Last Admin: 09/28/23 07:46 Dose: 0.25 mg Alprazolam (Alprazolam 0.25 Mg Tablet) 0.25 mg PO BID PRN PRN Reason: anxiety Last Admin: 09/27/23 06:50 Dose: 0.25 mg Amitriptyline HCl (Amitriptyline Hcl 25 Mg Tablet) 75 mg PO BEDTIME [facility] Last Admin: 09/27/23 20:12 Dose: 75 mg Cariprazine (Cariprazine Hcl 1.5 Mg Capsule) 1.5 mg PO DAILY [facility] Last Admin: 09/28/23 07:46 Dose: 1.5 mg Clindamycin HCl (Clindamycin Hcl 300 Mg Capsule) 300 mg PO Q6H [facility] Last Admin: 09/28/23 06:17 Dose: 300 mg Clonazepam (Clonazepam 1 Mg Tablet) 1 mg PO BEDTIME [facility] Last Admin: 09/27/23 20:12 Dose: 1 mg Duloxetine HCl (Duloxetine Hcl 60 Mg Capsule.Dr) 60 mg PO BID [facility] Last Admin: 09/28/23 07:46 Dose: 60 mg Gabapentin (Gabapentin 100 Mg Capsule) 100 mg PO TID [facility] Last Admin: 09/28/23 07:46 Dose: 100 mg Levothyroxine Sodium (Levothyroxine Sodium 100 Mcg Tablet) 100 mcg PO DAILY@0600 [facility] Last Admin: 09/28/23 06:17 Dose: 100 mcg Magnesium Hydroxide (Milk Of Magnesia 30 Ml Oral.Susp) 30 ml PO DAILY PRN PRN Reason: Constipation Metoclopramide HCl (Metoclopramide Hcl 10 Mg Tablet) 10 mg PO Q48H [facility] Last Admin: 09/28/23 07:45 Dose: 10 mg Modafinil (Modafinil 100 Mg Tablet) 200 mg PO BID@0800,1200 [facility] Last Admin: 09/28/23 07:47 Dose: 200 mg Omeprazole (Omeprazole 40 Mg Capsule.Dr) 40 mg PO DAILY@0630 [facility] Last Admin: 09/28/23 06:17 Dose: 40 mg Oxycodone HCl (Oxycodone Hcl Immed Release 5 Mg Tablet) 2.5 mg PO TID [facility] Last Admin: 09/28/23 07:45 Dose: 2.5 mg Polyethylene Glycol (Polyethylene Glycol 3350 17 Gm Powd.Pack) 17 gm PO DAILY PRN PRN Reason: Constipation Last Admin: 09/27/23 14:09 Dose: 17 gm Quetiapine Fumarate (Quetiapine Fumarate 100 Mg Tablet) 100 mg PO BEDTIME [facility] Last Admin: 05/11/24 20:12 Dose: 100 mg Quetiapine Fumarate (Quetiapine Fumarate 25 Mg Tablet) 25 mg PO Q4H PRN PRN Reason: severe anxiety Trazodone HCl (Trazodone Hcl 50 Mg Tablet) 50 mg PO BEDTIME [facility] Last Admin: 09/27/23 20:12 Dose: 50 mg Allergies Allergies Allergy/AdvReac Type Severity Reaction Status Date / Time prednisone [PREDNISONE] Allergy Mild HIVES Verified 09/24/23 05:29 tramadol [TRAMADOL] Allergy Mild HIVES Verified 09/24/23 05:29 penicillin G Allergy Unknown Unknown Verified 09/24/23 05:29 Penicillins [PENICILLINS] Allergy Unknown RASH Verified 09/24/23 05:29 methylprednisolone AdvReac Unknown VOMITING Verified 09/24/23 05:29 [METHYLPREDNISOLONE] Assessment & Plan Assessment & Plan (1) OCD (obsessive compulsive disorder): Status: Acute Code(s): F42.9 - Obsessive-compulsive disorder, unspecified (2) Post traumatic stress disorder (PTSD): Status: Acute Code(s): F43.10 - Post-traumatic stress disorder, unspecified (3) Depression, major, severe recurrence: Status: Acute Code(s): F33.2 - Major depressive disorder, recurrent severe without psychotic features Plan Patient is started on Vraylar for depression increase amitriptyline 75 at bedtime lower trazodone to 50 mg daily alprazolam 0.25 b.i.d. scheduled does not like how she feels on Seroquel p.r.n. which will be discontinued she was seen by gastroenterology extensive review with patient behavioral techniques Patient educated on: diagnosis, medication risk/benefits and therapeutic strategies Informed Consent: further education needed Reason for continued inpatient stay Substantial Risk for: harm to self, inability to function, rapid decompensation and med/psych decompensation Time Spent With Patient Time: Total time managing care of this patient today _30___ minutes.
[2023-09-28] MEDS: Lidocaine 4 % Patch ADH..PATCH 1 PATCH TRANSDERMA (11:20)
[2023-09-28] MEDS: polyethylene glycoL 3350 17 GM POWD.PACK PO (12:39)
[2023-09-28] MEDS: Acetaminophen 325 MG TABLET 650 MG PO (14:07)
[2023-09-28 20:00] VITALS: BP 152/79; PULSE 102; RESP 18; TEMP 36.5; O2SAT 98
[2023-09-28] MEDS: Amitriptyline HCl 25 MG TABLET 75 MG PO (20:45)
[2023-09-28] MEDS: traZODone HCL 50 MG TABLET PO (20:45)
[2023-09-28] MEDS: QUEtiapine Fumarate 100 MG TABLET PO (20:46)
[2023-09-28] MEDS: clonazePAM 1 MG TABLET PO (20:46)
[2023-09-29] MEDS: Clindamycin HCL 300 MG CAPSULE PO ×4 (01:04→23:57)
--- NOTE | 2023-09-29 06:08 | PC.NURSE ---
Patient NPO at 12 am for scheduled endoscopy procedure, morning meds held per radiotelephone operator provider Sinan Monahan.
[2023-09-29 08:00] VITALS: BP 159/85; PULSE 104; RESP 16; TEMP 36.4; O2SAT 97
[2023-09-29] MEDS: ALPRAZolam 0.25 MG TABLET PO ×3 (08:56→20:38)
[2023-09-29] MEDS: oxyCODONE HCl Immed Release 5 MG TABLET 2.5 MG PO ×2 (11:50→21:33)
[2023-09-29] MEDS: DULoxetine HCl 60 MG CAPSULE.DR PO ×2 (11:51→17:50)
[2023-09-29] MEDS: Cariprazine HCl 1.5 MG CAPSULE PO (11:51)
[2023-09-29] MEDS: polyethylene glycoL 3350 17 GM POWD.PACK PO (11:56)
[2023-09-29] MEDS: modafiniL 100 MG TABLET 200 MG PO (12:02)
--- NOTE | 2023-09-29 13:37 | P.PNPSI_ITS ---
Subjective Subjective Date of Service: 09/29/23 Reason For Visit: Severe depression anxiety Subjective Notes: Conditional Voluntary Healthcare Proxy: No Guardianship: No Interim History: Pt easily frustrated poor flexibility ecome distrught easily was unable to forego food became agitated distraught easily overwhelmed barium swalow ordered Mental Status Exam Mental Status Exam Patient Appearance: Appropriate Patient Orientation: Person, Place, Time and Situation Level of Consciousness: Awake Patient Behavior: Talkative, Anxious and Impulsive Mood Description: Constricted, Anxious, Labile and Apprehensive Affect Description: Anxious, Labile and Apprehensive Ability to Follow Directions: Good Speech Pattern: Clear Memory Description: Intact Hallucinations: None Delusions: Not Present Thought Process: Distracted and Rumination Thought Content: positive for Obsessional Thoughts, positive for Preoccupation, negative for Suicidal Ideation (Passive SI at times) or negative for Homicidal Ideation Depressive Symptoms: Increased Anxiety, Feelings of Worthlessness, Hopelessness, Thoughts of /Suicide, Loss of Energy and Difficulty Concentrating Judgement: Fair Judgement and Insight: Easily overwhelmed and frustrated at perceive minor slights Diagnostics Vital Signs (24Hr): Vital Signs - 24 hr 09/28/23 20:00 09/29/23 08:00 Temperature 97.7 F 97.6 F Pulse Rate 102 H 104 H Respiratory Rate 18 16 Blood Pressure 152/79 H 159/85 H Pulse Oximetry 98 97 Oxygen Delivery Method Room Air Room Air BMI result Body Mass Index 24.4 Labs 09/24/23 07:26 09/26/23 08:45 Medications Medications Current Medications Acetaminophen (Acetaminophen 325 Mg Tablet) 650 mg PO Q6H PRN PRN Reason: Headache/Pain Mild Scale (1-3) Last Admin: 09/28/23 14:07 Dose: 650 mg Al Hydroxide/Mg Hydroxide (Magnesium Hydrox/Alum Hydrox 30 Ml Oral.Susp) 30 ml PO Q6H PRN PRN Reason: Heartburn/Nausea Albuterol Sulfate (Albuterol Sulfate 90 Mcg 8 Gm Inhaler) 1 puff INHALE RQID PRN PRN Reason: Shortness Of Breath Alprazolam (Alprazolam 0.25 Mg Tablet) 0.25 mg PO BID [facility] Last Admin: 09/29/23 08:56 Dose: 0.25 mg Alprazolam (Alprazolam 0.25 Mg Tablet) 0.25 mg PO BID PRN PRN Reason: anxiety Last Admin: 09/28/23 14:48 Dose: 0.25 mg Amitriptyline HCl (Amitriptyline Hcl 25 Mg Tablet) 75 mg PO BEDTIME [facility] [place] Last Admin: 09/28/23 20:45 Dose: 75 mg Cariprazine (Cariprazine Hcl 1.5 Mg Capsule) 1.5 mg PO DAILY [facility] [place] Last Admin: 09/29/23 11:51 Dose: 1.5 mg Clindamycin HCl (Clindamycin Hcl 300 Mg Capsule) 300 mg PO Q6H [facility] [place] Last Admin: 09/29/23 11:51 Dose: 300 mg Clonazepam (Clonazepam 1 Mg Tablet) 1 mg PO BEDTIME [facility] [place] Last Admin: 09/28/23 20:46 Dose: 1 mg Duloxetine HCl (Duloxetine Hcl 60 Mg Capsule.Dr) 60 mg PO BID [facility] [place] Last Admin: 09/29/23 11:51 Dose: 60 mg Gabapentin (Gabapentin 100 Mg Capsule) 100 mg PO TID [facility] [place] Last Admin: 09/29/23 11:51 Dose: Not Given Levothyroxine Sodium (Levothyroxine Sodium 100 Mcg Tablet) 100 mcg PO DAILY@0600 [facility] [place] Last Admin: 09/29/23 06:01 Dose: Not Given Lidocaine (Lidocaine 4 % Patch Adh..Patch) 1 patch TRANSDERMA DAILY [facility] [place]; Protocol Last Admin: 09/29/23 11:52 Dose: Not Given Magnesium Hydroxide (Milk Of Magnesia 30 Ml Oral.Susp) 30 ml PO DAILY PRN PRN Reason: Constipation Metoclopramide HCl (Metoclopramide Hcl 10 Mg Tablet) 10 mg PO Q48H [facility] [place] Last Admin: 09/28/23 07:45 Dose: 10 mg Modafinil (Modafinil 100 Mg Tablet) 200 mg PO BID@0800,1200 [facility] [place] Last Admin: 09/29/23 12:02 Dose: 200 mg Omeprazole (Omeprazole 40 Mg Capsule.Dr) 40 mg PO DAILY@0630 [facility] [place] Last Admin: 09/29/23 06:14 Dose: Not Given Oxycodone HCl (Oxycodone Hcl Immed Release 5 Mg Tablet) 2.5 mg PO TID PRN PRN Reason: Pain, Moderate(Pain Scale 4-6) Last Admin: 09/29/23 11:50 Dose: 2.5 mg Polyethylene Glycol (Polyethylene Glycol 3350 17 Gm Powd.Pack) 17 gm PO DAILY PRN PRN Reason: Constipation Last Admin: 09/29/23 11:56 Dose: 17 gm Quetiapine Fumarate (Quetiapine Fumarate 100 Mg Tablet) 100 mg PO BEDTIME [facility] [place] Last Admin: 09/28/23 20:46 Dose: 100 mg Quetiapine Fumarate (Quetiapine Fumarate 25 Mg Tablet) 25 mg PO Q4H PRN PRN Reason: severe anxiety Trazodone HCl (Trazodone Hcl 50 Mg Tablet) 50 mg PO BEDTIME [facility] [place] Last Admin: 09/28/23 20:45 Dose: 50 mg Allergies Allergies Allergy/AdvReac Type Severity Reaction Status Date / Time prednisone [PREDNISONE] Allergy Mild HIVES Verified 09/24/23 05:29 tramadol [TRAMADOL] Allergy Mild HIVES Verified 09/24/23 05:29 penicillin G Allergy Unknown Unknown Verified 09/24/23 05:29 Penicillins [PENICILLINS] Allergy Unknown RASH Verified 09/24/23 05:29 methylprednisolone AdvReac Unknown VOMITING Verified 09/24/23 05:29 [METHYLPREDNISOLONE] Assessment & Plan Assessment & Plan (1) OCD (obsessive compulsive disorder): Status: Acute Code(s): F42.9 - Obsessive-compulsive disorder, unspecified (2) Post traumatic stress disorder (PTSD): Status: Acute Code(s): F43.10 - Post-traumatic stress disorder, unspecified (3) Depression, major, severe recurrence: Status: Acute Code(s): F33.2 - Major depressive disorder, recurrent severe without psychotic features Plan Patient is started on Vraylar for depression increase amitriptyline 75 at bedtime lower trazodone to 50 mg daily alprazolam 0.25 b.i.d. scheduled does not like how she feels on Seroquel p.r.n. which will be discontinued she was seen by gastroenterology extensive review with patient behavioral techniques tsh 0 ana dec synthroid redo swallow encourage php might eneft fromtms Patient educated on: diagnosis, therapeutic strategies and medical condition Informed Consent: further education needed Reason for continued inpatient stay Substantial Risk for: harm to self, inability to function, rapid decompensation and med/psych decompensation Time Spent With Patient Time: Total time managing care of this patient today ____ minutes.
[2023-09-29] MEDS: Gabapentin 100 MG CAPSULE PO ×2 (14:50→20:38)
[2023-09-29 20:00] VITALS: BP 144/67; PULSE 98; RESP 18; TEMP 36.6; O2SAT 100
[2023-09-29] MEDS: traZODone HCL 50 MG TABLET PO (20:38)
[2023-09-29] MEDS: QUEtiapine Fumarate 100 MG TABLET PO (20:38)
[2023-09-29] MEDS: clonazePAM 1 MG TABLET PO (20:38)
[2023-09-29] MEDS: Amitriptyline HCl 25 MG TABLET 75 MG PO (20:38)
[2023-09-30] MEDS: Clindamycin HCL 300 MG CAPSULE PO ×2 (05:36→13:22)
[2023-09-30] MEDS: Omeprazole 40 MG CAPSULE.DR PO (05:36)
[2023-09-30 08:01] VITALS: BP 160/78; PULSE 107; RESP 17; TEMP 36.8; O2SAT 96
[2023-09-30] MEDS: modafiniL 100 MG TABLET 200 MG PO ×2 (08:04→12:00)
[2023-09-30] MEDS: Metoclopramide HCl 10 MG TABLET PO (08:04)
[2023-09-30] MEDS: Gabapentin 100 MG CAPSULE PO ×3 (08:04→21:05)
[2023-09-30] MEDS: Cariprazine HCl 1.5 MG CAPSULE PO (08:04)
[2023-09-30] MEDS: DULoxetine HCl 60 MG CAPSULE.DR PO ×2 (08:04→16:08)
[2023-09-30] MEDS: ALPRAZolam 0.25 MG TABLET PO ×3 (08:05→21:05)
[2023-09-30] MEDS: Lidocaine 4 % Patch ADH..PATCH 1 PATCH TRANSDERMA (08:08)
[2023-09-30] MEDS: oxyCODONE HCl Immed Release 5 MG TABLET 2.5 MG PO ×2 (13:20→22:26)
--- NOTE | 2023-09-30 15:11 | PC.NURSE ---
Patient is having a Barium swallow tomorrow 09/30 at 11:00 and needs to be NPO after midnight. Patient is able to take her morning medications with a small amount of water only, per [employer].
[2023-09-30 16:29] LABS: Vitamin D 25-OH, D2 <4 ng/mL; Vitamin D 25-OH, D3 39 ng/mL; Vitamin D 25-OH, Total 39 ng/mL (30-100)
[2023-09-30 20:00] VITALS: BP 150/70; PULSE 100; RESP 17; TEMP 36.6; O2SAT 97
--- NOTE | 2023-09-30 20:48 | P.PNPSI_ITS ---
Subjective Subjective Date of Service: 09/30/23 Reason For Visit: Severe depression anxiety Subjective Notes: Conditional Voluntary Healthcare Proxy: No Guardianship: No Interim History: Patient seen psychiatric follow-up. Continues to feel the stabilized had medication held in the morning this caused severe anxiety was unable to wait and get the endoscopy that had been scheduled barium swallow scheduled for the morning patient felt somewhat overmedicated with increase in amitriptyline possibly Vraylar denies active SI but overwhelmed anxious isolative Mental Status Exam Mental Status Exam Patient Appearance: Appropriate Patient Orientation: Person, Place, Time and Situation Level of Consciousness: Awake Patient Behavior: Talkative, Anxious and Impulsive Mood Description: Constricted, Anxious, Labile and Apprehensive Affect Description: Anxious, Labile and Apprehensive Ability to Follow Directions: Good Speech Pattern: Clear Memory Description: Intact Hallucinations: None Delusions: Not Present Thought Process: Distracted and Rumination Thought Content: positive for Obsessional Thoughts, positive for Preoccupation, negative for Suicidal Ideation (Passive SI at times) or negative for Homicidal Ideation Depressive Symptoms: Increased Anxiety, Feelings of Worthlessness, Hopelessness, Thoughts of /Suicide, Loss of Energy and Difficulty Concentrating Judgement: Fair Judgement and Insight: Easily overwhelmed and frustrated at perceive minor slights Diagnostics Vital Signs (24Hr): Vital Signs - 24 hr 09/30/23 08:01 Temperature 98.2 F Pulse Rate 107 H Respiratory Rate 17 Blood Pressure 160/78 H Pulse Oximetry 96 Oxygen Delivery Method Room Air BMI result Body Mass Index 24.4 Labs 09/24/23 07:26 09/26/23 08:45 Labs: Laboratory Results - last 48 hr 09/26/23 08:45 25-OH Vitamin D Total 39 25-Hydroxy Vitamin D2 <4 25-Hydroxy Vitamin D3 39 Imaging Radiology Impressions: ITS Impressions Hip X-Ray 09/30/23 12:37 IMPRESSION: Status post right hip total arthroplasty. Additional imaging with CT scan recommended if there is clinical concern for fracture or other underlying pathology. This study was presented today, September 30, 2023 for interpretation. Stat results provided at this time as requested by referring provider. Medications Medications Current Medications Acetaminophen (Acetaminophen 325 Mg Tablet) 650 mg PO Q6H PRN PRN Reason: Headache/Pain Mild Scale (1-3) Last Admin: 09/28/23 14:07 Dose: 650 mg Al Hydroxide/Mg Hydroxide (Magnesium Hydrox/Alum Hydrox 30 Ml Oral.Susp) 30 ml PO Q6H PRN PRN Reason: Heartburn/Nausea Albuterol Sulfate (Albuterol Sulfate 90 Mcg 8 Gm Inhaler) 1 puff INHALE RQID PRN PRN Reason: Shortness Of Breath Alprazolam (Alprazolam 0.25 Mg Tablet) 0.25 mg PO BID [facility] Last Admin: 09/30/23 08:05 Dose: 0.25 mg Alprazolam (Alprazolam 0.25 Mg Tablet) 0.25 mg PO BID PRN PRN Reason: anxiety Last Admin: 09/30/23 11:07 Dose: 0.25 mg Amitriptyline HCl (Amitriptyline Hcl 50 Mg Tablet) 50 mg PO BEDTIME [facility] Cariprazine (Cariprazine Hcl 1.5 Mg Capsule) 1.5 mg PO DAILY [facility] Last Admin: 09/30/23 08:04 Dose: 1.5 mg Clindamycin HCl (Clindamycin Hcl 300 Mg Capsule) 300 mg PO Q6H [facility] Last Admin: 09/30/23 13:22 Dose: 300 mg Clonazepam (Clonazepam 1 Mg Tablet) 1 mg PO BEDTIME [facility] Last Admin: 09/29/23 20:38 Dose: 1 mg Duloxetine HCl (Duloxetine Hcl 60 Mg Capsule.Dr) 60 mg PO BID@0900,1700 [facility] Last Admin: 09/30/23 16:08 Dose: 60 mg Gabapentin (Gabapentin 100 Mg Capsule) 100 mg PO TID [facility] Last Admin: 09/30/23 16:08 Dose: 100 mg Lidocaine (Lidocaine 4 % Patch Adh..Patch) 1 patch TRANSDERMA DAILY [facility]; Protocol Last Admin: 09/30/23 08:08 Dose: 1 patch Magnesium Hydroxide (Milk Of Magnesia 30 Ml Oral.Susp) 30 ml PO DAILY PRN PRN Reason: Constipation Metoclopramide HCl (Metoclopramide Hcl 10 Mg Tablet) 10 mg PO Q48H [facility] Last Admin: 09/30/23 08:04 Dose: 10 mg Modafinil (Modafinil 100 Mg Tablet) 200 mg PO BID@0800,1200 [facility] Last Admin: 09/30/23 12:00 Dose: 200 mg Omeprazole (Omeprazole 40 Mg Capsule.Dr) 40 mg PO DAILY@0630 [facility] Last Admin: 09/30/23 05:36 Dose: 40 mg Oxycodone HCl (Oxycodone Hcl Immed Release 5 Mg Tablet) 2.5 mg PO TID PRN PRN Reason: Pain, Moderate(Pain Scale 4-6) Last Admin: 09/30/23 13:20 Dose: 2.5 mg Polyethylene Glycol (Polyethylene Glycol 3350 17 Gm Powd.Pack) 17 gm PO DAILY PRN PRN Reason: Constipation Last Admin: 09/29/23 11:56 Dose: 17 gm Quetiapine Fumarate (Quetiapine Fumarate 25 Mg Tablet) 25 mg PO Q4H PRN PRN Reason: severe anxiety Quetiapine Fumarate (Quetiapine Fumarate 50 Mg Tablet) 50 mg PO BEDTIME [facility] Trazodone HCl (Trazodone Hcl 50 Mg Tablet) 50 mg PO BEDTIME [facility] Last Admin: 09/29/23 20:38 Dose: 50 mg Allergies Allergies Allergy/AdvReac Type Severity Reaction Status Date / Time prednisone [PREDNISONE] Allergy Mild HIVES Verified 09/24/23 05:29 tramadol [TRAMADOL] Allergy Mild HIVES Verified 09/24/23 05:29 penicillin G Allergy Unknown Unknown Verified 09/24/23 05:29 Penicillins [PENICILLINS] Allergy Unknown RASH Verified 09/24/23 05:29 methylprednisolone AdvReac Unknown VOMITING Verified 09/24/23 05:29 [METHYLPREDNISOLONE] Assessment & Plan Assessment & Plan (1) OCD (obsessive compulsive disorder): Status: Acute Code(s): F42.9 - Obsessive-compulsive disorder, unspecified (2) Post traumatic stress disorder (PTSD): Status: Acute Code(s): F43.10 - Post-traumatic stress disorder, unspecified (3) Depression, major, severe recurrence: Status: Acute Code(s): F33.2 - Major depressive disorder, recurrent severe without psychotic features Plan Continue Vraylar 1.5 mg lower Seroquel to 50 mg marked anxiety try and limit use of alprazolam but appears to needed this time consider changing amitriptyline to Anafranil patient continues to ruminate marked anxiety about good friend of hers who is asking to move in together this had been a dream the patient's but she understands she is barely able to take care of herself at this time. Still needs endoscopy Patient educated on: diagnosis and medication risk/benefits Informed Consent: further education needed Reason for continued inpatient stay Substantial Risk for: harm to self, inability to function and med/psych decompensation Time Spent With Patient Time: Total time managing care of this patient today __30__ minutes.
[2023-09-30] MEDS: QUEtiapine Fumarate 50 MG TABLET PO (21:04)
[2023-09-30] MEDS: traZODone HCL 50 MG TABLET PO (21:04)
[2023-09-30] MEDS: Amitriptyline HCl 50 MG TABLET PO (21:05)
[2023-09-30] MEDS: clonazePAM 1 MG TABLET PO (21:05)
[2023-10-01 08:35] VITALS: BP 130/71; PULSE 103; RESP 18; TEMP 36.1; O2SAT 94
[2023-10-01] MEDS: ALPRAZolam 0.25 MG TABLET PO ×3 (08:40→20:53)
[2023-10-01] MEDS: modafiniL 100 MG TABLET 200 MG PO ×2 (08:40→11:52)
[2023-10-01] MEDS: Gabapentin 100 MG CAPSULE PO ×3 (08:40→20:53)
[2023-10-01] MEDS: Cariprazine HCl 1.5 MG CAPSULE PO (08:41)
[2023-10-01] MEDS: DULoxetine HCl 60 MG CAPSULE.DR PO ×2 (08:41→16:59)
[2023-10-01] MEDS: oxyCODONE HCl Immed Release 5 MG TABLET 2.5 MG PO ×2 (08:50→21:00)
[2023-10-01] MEDS: Lidocaine 4 % Patch ADH..PATCH 1 PATCH TRANSDERMA (08:51)
[2023-10-01] MEDS: Sodium Phosphate,Mono-Dibasic 133 ML ENEMA PR (09:39)
--- NOTE | 2023-10-01 13:24 | HO.PSYCHPN ---
Subjective Subjective Date of Service: 10/01/23 Reason For Visit: Severe depression anxiety Subjective Notes: Conditional Voluntary Mental Status Exam Mental Status Exam Patient Appearance: Appropriate Patient Orientation: Person, Place, Time and Situation Level of Consciousness: Awake Patient Behavior: Talkative, Anxious and Impulsive Mood Description: Constricted, Anxious, Labile and Apprehensive Affect Description: Anxious, Labile and Apprehensive Ability to Follow Directions: Good Speech Pattern: Clear Memory Description: Intact Hallucinations: None Delusions: Not Present Thought Process: Distracted and Rumination Thought Content: positive for Obsessional Thoughts, positive for Preoccupation, negative for Suicidal Ideation (Passive SI at times) or negative for Homicidal Ideation Depressive Symptoms: Increased Anxiety, Feelings of Worthlessness and Difficulty Concentrating Judgement: Fair Judgement and Insight: Easily overwhelmed understands she must confront anxiety Diagnostics Vital Signs (24Hr): Vital Signs - 24 hr 09/30/23 20:00 10/01/23 08:35 Temperature 97.9 F 97 F Pulse Rate 100 103 H Respiratory Rate 17 18 Blood Pressure 150/70 H 130/71 Pulse Oximetry 97 94 Oxygen Delivery Method Room Air Room Air BMI result Body Mass Index 24.4 Labs 09/24/23 07:26 09/26/23 08:45 Labs: Laboratory Results - last 48 hr 09/26/23 08:45 25-OH Vitamin D Total 39 25-Hydroxy Vitamin D2 <4 25-Hydroxy Vitamin D3 39 Imaging Radiology Impressions: ITS Impressions Hip X-Ray 09/30/23 12:37 IMPRESSION: Status post right hip total arthroplasty. Additional imaging with CT scan recommended if there is clinical concern for fracture or other underlying pathology. This study was presented today, September 30, 2023 for interpretation. Stat results provided at this time as requested by referring provider. Medications Medications Current Medications Acetaminophen (Acetaminophen 325 Mg Tablet) 650 mg PO Q6H PRN PRN Reason: Headache/Pain Mild Scale (1-3) Last Admin: 09/28/23 14:07 Dose: 650 mg Al Hydroxide/Mg Hydroxide (Magnesium Hydrox/Alum Hydrox 30 Ml Oral.Susp) 30 ml PO Q6H PRN PRN Reason: Heartburn/Nausea Albuterol Sulfate (Albuterol Sulfate 90 Mcg 8 Gm Inhaler) 1 puff INHALE RQID PRN PRN Reason: Shortness Of Breath Alprazolam (Alprazolam 0.25 Mg Tablet) 0.25 mg PO BID [facility] Last Admin: 10/01/23 08:40 Dose: 0.25 mg Alprazolam (Alprazolam 0.25 Mg Tablet) 0.25 mg PO BID PRN PRN Reason: anxiety Last Admin: 10/01/23 09:40 Dose: 0.25 mg Amitriptyline HCl (Amitriptyline Hcl 50 Mg Tablet) 50 mg PO BEDTIME [facility] Last Admin: 09/30/23 21:05 Dose: 50 mg Cariprazine (Cariprazine Hcl 1.5 Mg Capsule) 1.5 mg PO DAILY [facility] Last Admin: 10/01/23 08:41 Dose: 1.5 mg Cefuroxime Axetil (Cefuroxime Axetil 500 Mg Tablet) 500 mg PO BID [facility] Clonazepam (Clonazepam 1 Mg Tablet) 1 mg PO BEDTIME [facility] Last Admin: 09/30/23 21:05 Dose: 1 mg Duloxetine HCl (Duloxetine Hcl 60 Mg Capsule.) 60 mg PO BID@0900,1700 [facility] Last Admin: 10/01/23 08:41 Dose: 60 mg Gabapentin (Gabapentin 100 Mg Capsule) 100 mg PO TID [facility] Last Admin: 10/01/23 08:40 Dose: 100 mg Levothyroxine Sodium (Levothyroxine Sodium 75 Mcg Tablet) 75 mcg PO DAILY@0600 [facility] Lidocaine (Lidocaine 4 % Patch Adh..Patch) 1 patch TRANSDERMA DAILY [facility]; Protocol Last Admin: 10/01/23 08:51 Dose: 1 patch Magnesium Hydroxide (Milk Of Magnesia 30 Ml Oral.Susp) 30 ml PO DAILY PRN PRN Reason: Constipation Metoclopramide HCl (Metoclopramide Hcl 10 Mg Tablet) 10 mg PO Q48H [facility] Last Admin: 09/30/23 08:04 Dose: 10 mg Modafinil (Modafinil 100 Mg Tablet) 200 mg PO BID@0800,1200 [facility] Last Admin: 10/01/23 11:52 Dose: 200 mg Omeprazole (Omeprazole 40 Mg Capsule.Dr) 40 mg PO DAILY@0630 [facility] Last Admin: 10/01/23 05:52 Dose: Not Given Oxycodone HCl (Oxycodone Hcl Immed Release 5 Mg Tablet) 2.5 mg PO TID PRN PRN Reason: Pain, Moderate(Pain Scale 4-6) Last Admin: 10/01/23 08:50 Dose: 2.5 mg Polyethylene Glycol (Polyethylene Glycol 3350 17 Gm Powd.Pack) 17 gm PO DAILY PRN PRN Reason: Constipation Last Admin: 09/29/23 11:56 Dose: 17 gm Quetiapine Fumarate (Quetiapine Fumarate 25 Mg Tablet) 25 mg PO Q4H PRN PRN Reason: severe anxiety Quetiapine Fumarate (Quetiapine Fumarate 50 Mg Tablet) 50 mg PO BEDTIME [facility] Last Admin: 09/30/23 21:04 Dose: 50 mg Trazodone HCl (Trazodone Hcl 50 Mg Tablet) 50 mg PO BEDTIME [facility] Last Admin: 09/30/23 21:04 Dose: 50 mg Allergies Allergies Allergy/AdvReac Type Severity Reaction Status Date / Time prednisone [PREDNISONE] Allergy Mild HIVES Verified 09/24/23 05:29 tramadol [TRAMADOL] Allergy Mild HIVES Verified 09/24/23 05:29 penicillin G Allergy Unknown Unknown Verified 09/24/23 05:29 Penicillins [PENICILLINS] Allergy Unknown RASH Verified 09/24/23 05:29 methylprednisolone AdvReac Unknown VOMITING Verified 09/24/23 05:29 [METHYLPREDNISOLONE] Assessment & Plan Assessment & Plan (1) OCD (obsessive compulsive disorder): Status: Acute Code(s): F42.9 - Obsessive-compulsive disorder, unspecified (2) Post traumatic stress disorder (PTSD): Status: Acute Code(s): F43.10 - Post-traumatic stress disorder, unspecified (3) Depression, major, severe recurrence: Status: Acute Code(s): F33.2 - Major depressive disorder, recurrent severe without psychotic features Plan Continue amitriptyline now at 50 mg Vraylar 1.5 mg patient was able to do barium swallow results not available consider increase Vraylar to 3 mg Patient educated on: diagnosis, medication risk/benefits and therapeutic strategies Informed Consent: further education needed Reason for continued inpatient stay Substantial Risk for: inability to function, rapid decompensation and med/psych decompensation Time Spent With Patient Time: Total time managing care of this patient today ____ minutes.
[2023-10-01] MEDS: cefuroxime axetiL 500 MG TABLET PO ×2 (13:56→20:53)
[2023-10-01] MEDS: Acetaminophen 325 MG TABLET 650 MG PO (13:56)
[2023-10-01 20:00] VITALS: BP 145/76; PULSE 85; RESP 16; TEMP 35.5; O2SAT 97
[2023-10-01] MEDS: clonazePAM 1 MG TABLET PO (20:53)
[2023-10-01] MEDS: QUEtiapine Fumarate 50 MG TABLET PO (20:53)
[2023-10-01] MEDS: traZODone HCL 50 MG TABLET PO (20:53)
[2023-10-01] MEDS: Amitriptyline HCl 50 MG TABLET PO (20:53)
[2023-10-02] MEDS: oxyCODONE HCl Immed Release 5 MG TABLET 2.5 MG PO ×3 (03:45→20:11)
[2023-10-02] MEDS: ALPRAZolam 0.25 MG TABLET PO ×4 (03:47→17:59)
[2023-10-02] MEDS: Levothyroxine Sodium 75 MCG TABLET PO (05:53)
[2023-10-02] MEDS: Omeprazole 40 MG CAPSULE.DR PO (05:53)
[2023-10-02 07:00] VITALS: BMI 24.6
[2023-10-02 08:00] VITALS: BP 129/69; PULSE 91; RESP 17; TEMP 36.2; O2SAT 95
[2023-10-02] MEDS: modafiniL 100 MG TABLET 200 MG PO ×2 (08:57→11:18)
[2023-10-02] MEDS: Gabapentin 100 MG CAPSULE PO ×3 (08:57→20:00)
[2023-10-02] MEDS: Metoclopramide HCl 10 MG TABLET PO (08:57)
[2023-10-02] MEDS: Cariprazine HCl 1.5 MG CAPSULE PO (08:57)
[2023-10-02] MEDS: DULoxetine HCl 60 MG CAPSULE.DR PO ×2 (08:57→16:15)
[2023-10-02] MEDS: Lidocaine 4 % Patch ADH..PATCH 1 PATCH TRANSDERMA (08:58)
[2023-10-02] MEDS: cefuroxime axetiL 500 MG TABLET PO ×2 (08:58→20:02)
[2023-10-02 20:00] VITALS: BP 142/75; PULSE 95; RESP 18; TEMP 36.6; O2SAT 97
[2023-10-02] MEDS: clonazePAM 1 MG TABLET PO (20:01)
[2023-10-02] MEDS: Amitriptyline HCl 50 MG TABLET PO (20:02)
[2023-10-02] MEDS: QUEtiapine Fumarate 50 MG TABLET PO (20:02)
[2023-10-02] MEDS: traZODone HCL 50 MG TABLET PO (20:02)
--- NOTE | 2023-10-02 20:28 | HO.PSYCHPN ---
Subjective Subjective Date of Service: 10/02/23 Reason For Visit: Severe depression anxiety Subjective Notes: Conditional Voluntary Healthcare Proxy: No Guardianship: No Interim History: pt seen in f/u anxious reviewed results barium swallow does feel better with vraylar ruminating difficulty being aroiund other people doing better on lower dose amitriptyline not overly sedated Medication Compliance: Yes Side effects from medications: No Review of Systems swallowing difficulty Diagnostics Vital Signs (24Hr): Vital Signs - 24 hr 10/02/23 08:00 Temperature 97.2 F Pulse Rate 91 Respiratory Rate 17 Blood Pressure 129/69 Pulse Oximetry 95 Oxygen Delivery Method Room Air BMI result Body Mass Index 24.6 Labs 09/24/23 07:26 09/26/23 08:45 Imaging Radiology Impressions: ITS Impressions Hip X-Ray 09/30/23 12:37 IMPRESSION: Status post right hip total arthroplasty. Additional imaging with CT scan recommended if there is clinical concern for fracture or other underlying pathology. This study was presented today, September 30, 2023 for interpretation. Stat results provided at this time as requested by referring provider. Barium Swallow X-Ray 10/01/23 11:14 IMPRESSION: 1. Trace laryngeal penetration with thick barium. 2. 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 3. Mild cricopharyngeal achalasia 4. Abnormal granular appearance of the distal esophageal mucosa, consistent with erosive esophagitis. 5. Esophageal dysmotility 6. Moderate narrowing of the GE junction that may represent achalasia. A benign stricture cannot be ruled out. Recommend correlation with EGD. 7. Very small type I hiatal hernia 8. Thickened mucosal folds in the second and third portion the duodenum that may represent enteritis, versus artifact. This procedure was performed by Pierre Hernandez PA-C, and supervised by Dr. Sal Medications Medications Current Medications Acetaminophen (Acetaminophen 325 Mg Tablet) 650 mg PO Q6H PRN PRN Reason: Headache/Pain Mild Scale (1-3) Last Admin: 10/01/23 13:56 Dose: 650 mg Al Hydroxide/Mg Hydroxide (Magnesium Hydrox/Alum Hydrox 30 Ml Oral.Susp) 30 ml PO Q6H PRN PRN Reason: Heartburn/Nausea Albuterol Sulfate (Albuterol Sulfate 90 Mcg 8 Gm Inhaler) 1 puff INHALE RQID PRN PRN Reason: Shortness Of Breath Alprazolam (Alprazolam 0.25 Mg Tablet) 0.25 mg PO BID [facility] Last Admin: 10/02/23 17:59 Dose: 0.25 mg Alprazolam (Alprazolam 0.25 Mg Tablet) 0.25 mg PO BID PRN PRN Reason: anxiety Last Admin: 10/02/23 11:19 Dose: 0.25 mg Amitriptyline HCl (Amitriptyline Hcl 50 Mg Tablet) 50 mg PO BEDTIME [facility] Last Admin: 10/02/23 20:02 Dose: 50 mg Cariprazine (Cariprazine Hcl 1.5 Mg Capsule) 1.5 mg PO DAILY [facility] Last Admin: 10/02/23 08:57 Dose: 1.5 mg Cefuroxime Axetil (Cefuroxime Axetil 500 Mg Tablet) 500 mg PO BID [facility] Last Admin: 10/02/23 20:02 Dose: 500 mg Clonazepam (Clonazepam 1 Mg Tablet) 1 mg PO BEDTIME [facility] Last Admin: 10/02/23 20:01 Dose: 1 mg Duloxetine HCl (Duloxetine Hcl 60 Mg Capsule.Dr) 60 mg PO BID@0900,1700 [facility] Last Admin: 10/02/23 16:15 Dose: 60 mg Gabapentin (Gabapentin 100 Mg Capsule) 100 mg PO TID [facility] Last Admin: 10/02/23 20:00 Dose: 100 mg Levothyroxine Sodium (Levothyroxine Sodium 75 Mcg Tablet) 75 mcg PO DAILY@0600 [facility] Last Admin: 10/02/23 05:53 Dose: 75 mcg Lidocaine (Lidocaine 4 % Patch Adh..Patch) 1 patch TRANSDERMA DAILY [facility]; Protocol Last Admin: 10/02/23 08:58 Dose: 1 patch Magnesium Hydroxide (Milk Of Magnesia 30 Ml Oral.Susp) 30 ml PO DAILY PRN PRN Reason: Constipation Metoclopramide HCl (Metoclopramide Hcl 10 Mg Tablet) 10 mg PO Q48H [facility] Last Admin: 10/02/23 08:57 Dose: 10 mg Modafinil (Modafinil 100 Mg Tablet) 200 mg PO BID@0800,1200 [facility] Last Admin: 10/02/23 11:18 Dose: 200 mg Patient Own ( Estradiol0.025mg 1 Patch) 1 patch TRANSDERMA Q7D [facility] Last Admin: 10/02/23 18:41 Dose: 1 patch Omeprazole (Omeprazole 40 Mg Capsule.Dr) 40 mg PO DAILY@0630 [facility] Last Admin: 10/02/23 05:53 Dose: 40 mg Oxycodone HCl (Oxycodone Hcl Immed Release 5 Mg Tablet) 2.5 mg PO TID PRN PRN Reason: Pain, Moderate(Pain Scale 4-6) Last Admin: 10/02/23 20:11 Dose: 2.5 mg Polyethylene Glycol (Polyethylene Glycol 3350 17 Gm Powd.Pack) 17 gm PO DAILY PRN PRN Reason: Constipation Last Admin: 09/29/23 11:56 Dose: 17 gm Quetiapine Fumarate (Quetiapine Fumarate 25 Mg Tablet) 25 mg PO Q4H PRN PRN Reason: severe anxiety Quetiapine Fumarate (Quetiapine Fumarate 50 Mg Tablet) 50 mg PO BEDTIME [facility] Last Admin: 10/02/23 20:02 Dose: 50 mg Trazodone HCl (Trazodone Hcl 50 Mg Tablet) 50 mg PO BEDTIME [facility] Last Admin: 10/02/23 20:02 Dose: 50 mg Allergies Allergies Allergy/AdvReac Type Severity Reaction Status Date / Time prednisone [PREDNISONE] Allergy Mild HIVES Verified 09/24/23 05:29 tramadol [TRAMADOL] Allergy Mild HIVES Verified 09/24/23 05:29 penicillin G Allergy Unknown Unknown Verified 09/24/23 05:29 Penicillins [PENICILLINS] Allergy Unknown RASH Verified 09/24/23 05:29 methylprednisolone AdvReac Unknown VOMITING Verified 09/24/23 05:29 [METHYLPREDNISOLONE] Assessment & Plan Assessment & Plan (1) OCD (obsessive compulsive disorder): Status: Acute Code(s): F42.9 - Obsessive-compulsive disorder, unspecified (2) Post traumatic stress disorder (PTSD): Status: Acute Code(s): F43.10 - Post-traumatic stress disorder, unspecified (3) Depression, major, severe recurrence: Status: Acute Code(s): F33.2 - Major depressive disorder, recurrent severe without psychotic features Plan Continue amitriptyline now at 50 mg Vraylar 1.5 mg alprazolam helpful in this setting frequentky feels rejected dismissed 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
[2023-10-03] MEDS: Levothyroxine Sodium 75 MCG TABLET PO (06:35)
[2023-10-03] MEDS: ALPRAZolam 0.25 MG TABLET PO ×3 (06:35→20:01)
[2023-10-03] MEDS: Omeprazole 40 MG CAPSULE.DR PO (06:36)
[2023-10-03 08:00] VITALS: BP 136/70; PULSE 104; RESP 18; TEMP 36.6; O2SAT 94
[2023-10-03] MEDS: Gabapentin 100 MG CAPSULE PO ×3 (08:35→20:00)
[2023-10-03] MEDS: modafiniL 100 MG TABLET 200 MG PO ×2 (08:35→12:12)
[2023-10-03] MEDS: cefuroxime axetiL 500 MG TABLET PO ×2 (08:35→22:10)
[2023-10-03] MEDS: DULoxetine HCl 60 MG CAPSULE.DR PO ×2 (08:35→16:12)
[2023-10-03] MEDS: Cariprazine HCl 1.5 MG CAPSULE PO (08:36)
[2023-10-03] MEDS: Lidocaine 4 % Patch ADH..PATCH 1 PATCH TRANSDERMA (08:36)
[2023-10-03] MEDS: oxyCODONE HCl Immed Release 5 MG TABLET 2.5 MG PO ×2 (08:43→20:05)
--- NOTE | 2023-10-03 13:15 | MHC.CLN ---
NUTRITION CONSULT FOR PATIENT NOT EATING SOLID FOOD. HAD UPPER ENDOSCOPY WITH BALLOON DILATION TODAY. DIET NOW FULL LIQUIDS. ADDING ENSURE TID (1050 KCALS, 60 G PROTEIN) AND MAGIC CUP TID (870 KCALS, 27 G PROTEIN). COMMUNICATED WITH MD TO CONSULT HORTICULTURE TEACHER IF NEEDED TO ASSESS FOR DIET CONSISTENCY. FOLLOW FOR PO INTAKE AND DIET CONSISTENCY.
[2023-10-03] MEDS: QUEtiapine Fumarate 25 MG TABLET PO (13:35)
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
[2023-10-03] MEDS: Acetaminophen 325 MG TABLET 650 MG PO (16:13)
[2023-10-03 20:00] VITALS: BP 128/64; PULSE 71; RESP 16; TEMP 36.3; O2SAT 98
[2023-10-03] MEDS: QUEtiapine Fumarate 50 MG TABLET PO (20:00)
[2023-10-03] MEDS: Amitriptyline HCl 50 MG TABLET PO ×2 (20:00→22:10)
[2023-10-03] MEDS: traZODone HCL 50 MG TABLET PO (20:01)
[2023-10-03] MEDS: clonazePAM 1 MG TABLET PO (20:01)
[2023-10-04] MEDS: Acetaminophen 325 MG TABLET 650 MG PO (04:08)
[2023-10-04] MEDS: Levothyroxine Sodium 75 MCG TABLET PO (06:04)
[2023-10-04] MEDS: Omeprazole 40 MG CAPSULE.DR PO (06:04)
[2023-10-04] MEDS: ALPRAZolam 0.25 MG TABLET PO ×3 (06:32→20:34)
[2023-10-04 08:23] VITALS: BP 135/78; PULSE 92; RESP 18; TEMP 36.5; O2SAT 98
[2023-10-04] MEDS: modafiniL 100 MG TABLET 200 MG PO ×2 (09:00→11:50)
[2023-10-04] MEDS: Gabapentin 100 MG CAPSULE PO ×3 (09:00→20:34)
[2023-10-04] MEDS: cefuroxime axetiL 500 MG TABLET PO ×2 (09:00→20:34)
[2023-10-04] MEDS: Cariprazine HCl 1.5 MG CAPSULE PO (09:00)
[2023-10-04] MEDS: DULoxetine HCl 60 MG CAPSULE.DR PO ×2 (09:00→17:04)
[2023-10-04] MEDS: Metoclopramide HCl 10 MG TABLET PO (09:01)
[2023-10-04] MEDS: Lidocaine 4 % Patch ADH..PATCH 1 PATCH TRANSDERMA (09:01)
[2023-10-04] MEDS: oxyCODONE HCl Immed Release 5 MG TABLET 2.5 MG PO ×3 (09:07→20:37)
--- NOTE | 2023-10-04 18:48 | P.PNPSI_ITS ---
Subjective Subjective Date of Service: 10/04/23 Reason For Visit: Severe depression anxiety Interim History: met with patient; discussed with team pt doing well; tolerated endoscopy; reviewed xray of hip with patient. She says she's good but struggles with anxiety. 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 Mental Status Exam Mental Status Exam Patient Appearance: Appropriate Patient Orientation: Person, Place, Time and Situation Level of Consciousness: Awake Patient Behavior: Talkative, Anxious and Impulsive Mood Description: Constricted, Anxious, Labile and Apprehensive Affect Description: Anxious, Labile and Apprehensive Ability to Follow Directions: Good Speech Pattern: Clear Memory Description: Intact Diagnostics Vital Signs (24Hr): Vital Signs - 24 hr 10/03/23 20:00 10/04/23 08:23 Temperature 97.3 F 97.7 F Pulse Rate 71 92 Respiratory Rate 16 18 Blood Pressure 128/64 135/78 Pulse Oximetry 98 98 Oxygen Delivery Method Room Air Room Air BMI result Body Mass Index 24.6 Labs 09/24/23 07:26 09/26/23 08:45 Imaging Radiology Impressions: ITS Impressions Hip X-Ray 09/30/23 12:37 IMPRESSION: Status post right hip total arthroplasty. Additional imaging with CT scan recommended if there is clinical concern for fracture or other underlying pathology. This study was presented today, September 30, 2023 for interpretation. Stat results provided at this time as requested by referring provider. Barium Swallow X-Ray 10/01/23 11:14 IMPRESSION: 1. Trace laryngeal penetration with thick barium. 2. 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 3. Mild cricopharyngeal achalasia 4. Abnormal granular appearance of the distal esophageal mucosa, consistent with erosive esophagitis. 5. Esophageal dysmotility 6. Moderate narrowing of the GE junction that may represent achalasia. A benign stricture cannot be ruled out. Recommend correlation with EGD. 7. Very small type I hiatal hernia 8. Thickened mucosal folds in the second and third portion the duodenum that may represent enteritis, versus artifact. This procedure was performed by Pierre Hernandez PA-C, and supervised by Dr. Sal Medications Medications Current Medications Acetaminophen (Acetaminophen 325 Mg Tablet) 650 mg PO Q6H PRN PRN Reason: Headache/Pain Mild Scale (1-3) Last Admin: 10/04/23 04:08 Dose: 650 mg Al Hydroxide/Mg Hydroxide (Magnesium Hydrox/Alum Hydrox 30 Ml Oral.Susp) 30 ml PO Q6H PRN PRN Reason: Heartburn/Nausea Albuterol Sulfate (Albuterol Sulfate 90 Mcg 8 Gm Inhaler) 1 puff INHALE RQID PRN PRN Reason: Shortness Of Breath Alprazolam (Alprazolam 0.25 Mg Tablet) 0.25 mg PO BID [facility] Last Admin: 10/04/23 09:00 Dose: 0.25 mg Alprazolam (Alprazolam 0.25 Mg Tablet) 0.25 mg PO BID PRN PRN Reason: anxiety Last Admin: 10/04/23 06:32 Dose: 0.25 mg Amitriptyline HCl (Amitriptyline Hcl 50 Mg Tablet) 50 mg PO BEDTIME [facility] Last Admin: 10/03/23 22:10 Dose: 50 mg Cariprazine (Cariprazine Hcl 1.5 Mg Capsule) 1.5 mg PO DAILY [facility] Last Admin: 10/04/23 09:00 Dose: 1.5 mg Cefuroxime Axetil (Cefuroxime Axetil 500 Mg Tablet) 500 mg PO BID [facility] Last Admin: 10/04/23 09:00 Dose: 500 mg Clonazepam (Clonazepam 1 Mg Tablet) 1 mg PO BEDTIME [facility] Last Admin: 10/03/23 20:01 Dose: 1 mg Duloxetine HCl (Duloxetine Hcl 60 Mg Capsule.Dr) 60 mg PO BID@0900,1700 [facility] Last Admin: 10/04/23 17:04 Dose: 60 mg Gabapentin (Gabapentin 100 Mg Capsule) 100 mg PO TID [facility] Last Admin: 10/04/23 15:27 Dose: 100 mg Levothyroxine Sodium (Levothyroxine Sodium 75 Mcg Tablet) 75 mcg PO DAILY@0600 [facility] Last Admin: 10/04/23 06:04 Dose: 75 mcg Lidocaine (Lidocaine 4 % Patch Adh..Patch) 1 patch TRANSDERMA DAILY [facility]; Protocol Last Admin: 10/04/23 09:01 Dose: 1 patch Magnesium Hydroxide (Milk Of Magnesia 30 Ml Oral.Susp) 30 ml PO DAILY PRN PRN Reason: Constipation Metoclopramide HCl (Metoclopramide Hcl 10 Mg Tablet) 10 mg PO Q48H [facility] Last Admin: 10/04/23 09:01 Dose: 10 mg Modafinil (Modafinil 100 Mg Tablet) 200 mg PO BID@0800,1200 [facility] Last Admin: 10/04/23 11:50 Dose: 200 mg Patient Own ( Estradiol0.025mg 1 Patch) 1 patch TRANSDERMA Q7D [facility] Last Admin: 10/02/23 18:41 Dose: 1 patch Omeprazole (Omeprazole 40 Mg Capsule.Dr) 40 mg PO DAILY@0630 [facility] Last Admin: 10/04/23 06:04 Dose: 40 mg Oxycodone HCl (Oxycodone Hcl Immed Release 5 Mg Tablet) 2.5 mg PO TID PRN PRN Reason: Pain, Moderate(Pain Scale 4-6) Last Admin: 10/04/23 15:28 Dose: 2.5 mg Polyethylene Glycol (Polyethylene Glycol 3350 17 Gm Powd.Pack) 17 gm PO DAILY PRN PRN Reason: Constipation Last Admin: 09/29/23 11:56 Dose: 17 gm Quetiapine Fumarate (Quetiapine Fumarate 25 Mg Tablet) 25 mg PO Q4H PRN PRN Reason: severe anxiety Last Admin: 10/03/23 13:35 Dose: 25 mg Quetiapine Fumarate (Quetiapine Fumarate 50 Mg Tablet) 50 mg PO BEDTIME [facility] Last Admin: 10/03/23 20:00 Dose: 50 mg Trazodone HCl (Trazodone Hcl 50 Mg Tablet) 50 mg PO BEDTIME [facility] Last Admin: 10/03/23 20:01 Dose: 50 mg Allergies Allergies Allergy/AdvReac Type Severity Reaction Status Date / Time prednisone [PREDNISONE] Allergy Mild HIVES Verified 09/24/23 05:29 tramadol [TRAMADOL] Allergy Mild HIVES Verified 09/24/23 05:29 penicillin G Allergy Unknown Unknown Verified 09/24/23 05:29 Penicillins [PENICILLINS] Allergy Unknown RASH Verified 09/24/23 05:29 methylprednisolone AdvReac Unknown VOMITING Verified 09/24/23 05:29 [METHYLPREDNISOLONE] Assessment & Plan Assessment & Plan (1) OCD (obsessive compulsive disorder): Status: Acute Code(s): F42.9 - Obsessive-compulsive disorder, unspecified (2) Post traumatic stress disorder (PTSD): Status: Acute Code(s): F43.10 - Post-traumatic stress disorder, unspecified (3) Depression, major, severe recurrence: Status: Acute Code(s): F33.2 - Major depressive disorder, recurrent severe without psychotic features Plan 10/03 no change in tx plan Continue amitriptyline now at 50 mg Vraylar 1.5 mg alprazolam helpful in this setting alma feels rejected dismissed 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
[2023-10-04 19:57] VITALS: BP 157/70; PULSE 85; RESP 16; TEMP 36.9; O2SAT 98
[2023-10-04] MEDS: QUEtiapine Fumarate 50 MG TABLET PO (20:34)
[2023-10-04] MEDS: Amitriptyline HCl 50 MG TABLET PO (20:34)
[2023-10-04] MEDS: clonazePAM 1 MG TABLET PO (20:34)
[2023-10-04] MEDS: traZODone HCL 50 MG TABLET PO (20:34)
[2023-10-05] MEDS: Levothyroxine Sodium 75 MCG TABLET PO (05:42)
[2023-10-05] MEDS: Omeprazole 40 MG CAPSULE.DR PO (06:00)
[2023-10-05] MEDS: ALPRAZolam 0.25 MG TABLET PO ×4 (06:13→20:47)
[2023-10-05] MEDS: oxyCODONE HCl Immed Release 5 MG TABLET 2.5 MG PO ×3 (06:13→20:46)
[2023-10-05] MEDS: Gabapentin 100 MG CAPSULE PO ×3 (08:45→20:48)
[2023-10-05] MEDS: DULoxetine HCl 60 MG CAPSULE.DR PO ×2 (08:45→17:06)
[2023-10-05] MEDS: Lidocaine 4 % Patch ADH..PATCH 1 PATCH TRANSDERMA (08:45)
[2023-10-05] MEDS: cefuroxime axetiL 500 MG TABLET PO ×2 (08:46→20:48)
[2023-10-05] MEDS: modafiniL 100 MG TABLET 200 MG PO ×2 (08:46→11:46)
[2023-10-05] MEDS: Cariprazine HCl 1.5 MG CAPSULE PO (08:46)
[2023-10-05 08:53] VITALS: BP 151/76; PULSE 94; RESP 16; TEMP 36.4; O2SAT 97
--- NOTE | 2023-10-05 15:43 | P.PNPSI_ITS ---
Subjective Subjective Date of Service: 10/05/23 Reason For Visit: Severe depression anxiety Interim History: met with pt; discussed with team remains stable but anxious; however coping well. Talks about dealing with fact that [place] is out of town for over a week, so this just means she'll have to work harder at her coping skills Mental Status Exam Mental Status Exam Patient Appearance: Appropriate Patient Orientation: Person, Place, Time and Situation Level of Consciousness: Awake Patient Behavior: Talkative, Anxious and Impulsive Mood Description: Constricted, Anxious, Labile and Apprehensive Affect Description: Anxious, Labile and Apprehensive Ability to Follow Directions: Good Speech Pattern: Clear Memory Description: Intact Diagnostics Vital Signs (24Hr): Vital Signs - 24 hr 10/04/23 19:57 10/05/23 08:53 Temperature 98.4 F 97.5 F Pulse Rate 85 94 Respiratory Rate 16 16 Blood Pressure 157/70 H 151/76 H Pulse Oximetry 98 97 Oxygen Delivery Method Room Air Room Air BMI result Body Mass Index 24.6 Labs 09/24/23 07:26 09/26/23 08:45 Imaging Radiology Impressions: ITS Impressions Hip X-Ray 09/30/23 12:37 IMPRESSION: Status post right hip total arthroplasty. Additional imaging with CT scan recommended if there is clinical concern for fracture or other underlying pathology. This study was presented today, September 30, 2023 for interpretation. Stat results provided at this time as requested by referring provider. Barium Swallow X-Ray 10/01/23 11:14 IMPRESSION: 1. Trace laryngeal penetration with thick barium. 2. 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 3. Mild cricopharyngeal achalasia 4. Abnormal granular appearance of the distal esophageal mucosa, consistent with erosive esophagitis. 5. Esophageal dysmotility 6. Moderate narrowing of the GE junction that may represent achalasia. A benign stricture cannot be ruled out. Recommend correlation with EGD. 7. Very small type I hiatal hernia 8. Thickened mucosal folds in the second and third portion the duodenum that may represent enteritis, versus artifact. This procedure was performed by Pierre Hernandez PA-C, and supervised by Dr. Sal Medications Medications Current Medications Acetaminophen (Acetaminophen 325 Mg Tablet) 650 mg PO Q6H PRN PRN Reason: Headache/Pain Mild Scale (1-3) Last Admin: 10/04/23 04:08 Dose: 650 mg Al Hydroxide/Mg Hydroxide (Magnesium Hydrox/Alum Hydrox 30 Ml Oral.Susp) 30 ml PO Q6H PRN PRN Reason: Heartburn/Nausea Albuterol Sulfate (Albuterol Sulfate 90 Mcg 8 Gm Inhaler) 1 puff INHALE RQID PRN PRN Reason: Shortness Of Breath Alprazolam (Alprazolam 0.25 Mg Tablet) 0.25 mg PO BID [facility] Last Admin: 10/05/23 08:45 Dose: 0.25 mg Alprazolam (Alprazolam 0.25 Mg Tablet) 0.25 mg PO BID PRN PRN Reason: anxiety Last Admin: 10/05/23 13:15 Dose: 0.25 mg Amitriptyline HCl (Amitriptyline Hcl 50 Mg Tablet) 50 mg PO BEDTIME [facility] Last Admin: 10/04/23 20:34 Dose: 50 mg Cariprazine (Cariprazine Hcl 1.5 Mg Capsule) 1.5 mg PO DAILY [facility] Last Admin: 10/05/23 08:46 Dose: 1.5 mg Cefuroxime Axetil (Cefuroxime Axetil 500 Mg Tablet) 500 mg PO BID [facility] Last Admin: 10/05/23 08:46 Dose: 500 mg Clonazepam (Clonazepam 1 Mg Tablet) 1 mg PO BEDTIME [facility] Last Admin: 10/04/23 20:34 Dose: 1 mg Duloxetine HCl (Duloxetine Hcl 60 Mg Capsule.Dr) 60 mg PO BID@0900,1700 [facility] Last Admin: 10/05/23 08:45 Dose: 60 mg Gabapentin (Gabapentin 100 Mg Capsule) 100 mg PO TID [facility] Last Admin: 10/05/23 15:32 Dose: 100 mg Levothyroxine Sodium (Levothyroxine Sodium 75 Mcg Tablet) 75 mcg PO DAILY@0600 [facility] Last Admin: 10/05/23 05:42 Dose: 75 mcg Lidocaine (Lidocaine 4 % Patch Adh..Patch) 1 patch TRANSDERMA DAILY [facility]; Protocol Last Admin: 10/05/23 08:45 Dose: 1 patch Magnesium Hydroxide (Milk Of Magnesia 30 Ml Oral.Susp) 30 ml PO DAILY PRN PRN Reason: Constipation Metoclopramide HCl (Metoclopramide Hcl 10 Mg Tablet) 10 mg PO Q48H [facility] Last Admin: 10/04/23 09:01 Dose: 10 mg Modafinil (Modafinil 100 Mg Tablet) 200 mg PO BID@0800,1200 [facility] Last Admin: 10/05/23 11:46 Dose: 200 mg Patient Own ( Estradiol0.025mg 1 Patch) 1 patch TRANSDERMA Q7D [facility] Last Admin: 10/02/23 18:41 Dose: 1 patch Omeprazole (Omeprazole 40 Mg Capsule.Dr) 40 mg PO DAILY@0630 [facility] Last Admin: 10/05/23 06:00 Dose: 40 mg Oxycodone HCl (Oxycodone Hcl Immed Release 5 Mg Tablet) 2.5 mg PO TID PRN PRN Reason: Pain, Moderate(Pain Scale 4-6) Last Admin: 10/05/23 11:47 Dose: 2.5 mg Polyethylene Glycol (Polyethylene Glycol 3350 17 Gm Powd.Pack) 17 gm PO DAILY PRN PRN Reason: Constipation Last Admin: 09/29/23 11:56 Dose: 17 gm Quetiapine Fumarate (Quetiapine Fumarate 25 Mg Tablet) 25 mg PO Q4H PRN PRN Reason: severe anxiety Last Admin: 10/03/23 13:35 Dose: 25 mg Quetiapine Fumarate (Quetiapine Fumarate 50 Mg Tablet) 50 mg PO BEDTIME [facility] Last Admin: 10/04/23 20:34 Dose: 50 mg Trazodone HCl (Trazodone Hcl 50 Mg Tablet) 50 mg PO BEDTIME [facility] Last Admin: 10/04/23 20:34 Dose: 50 mg Allergies Allergies Allergy/AdvReac Type Severity Reaction Status Date / Time prednisone [PREDNISONE] Allergy Mild HIVES Verified 09/24/23 05:29 tramadol [TRAMADOL] Allergy Mild HIVES Verified 09/24/23 05:29 penicillin G Allergy Unknown Unknown Verified 09/24/23 05:29 Penicillins [PENICILLINS] Allergy Unknown RASH Verified 09/24/23 05:29 methylprednisolone AdvReac Unknown VOMITING Verified 09/24/23 05:29 [METHYLPREDNISOLONE] Assessment & Plan Assessment & Plan (1) OCD (obsessive compulsive disorder): Status: Acute Code(s): F42.9 - Obsessive-compulsive disorder, unspecified (2) Post traumatic stress disorder (PTSD): Status: Acute Code(s): F43.10 - Post-traumatic stress disorder, unspecified (3) Depression, major, severe recurrence: Status: Acute Code(s): F33.2 - Major depressive disorder, recurrent severe without psychotic features Plan 10/04 continue current tx plan -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
[2023-10-05 20:00] VITALS: BP 140/67; PULSE 90; RESP 18; TEMP 36.7; O2SAT 97
[2023-10-05] MEDS: clonazePAM 1 MG TABLET PO (20:47)
[2023-10-05] MEDS: Amitriptyline HCl 50 MG TABLET PO (20:48)
[2023-10-05] MEDS: QUEtiapine Fumarate 50 MG TABLET PO (20:48)
[2023-10-05] MEDS: traZODone HCL 50 MG TABLET PO (20:48)
[2023-10-06] MEDS: Levothyroxine Sodium 75 MCG TABLET PO (05:58)
[2023-10-06] MEDS: Omeprazole 40 MG CAPSULE.DR PO (05:58)
[2023-10-06] MEDS: ALPRAZolam 0.25 MG TABLET PO ×3 (06:45→12:14)
[2023-10-06] MEDS: oxyCODONE HCl Immed Release 5 MG TABLET 2.5 MG PO (06:45)
[2023-10-06 08:38] VITALS: BP 145/73; PULSE 93; RESP 18; TEMP 36.8; O2SAT 95
[2023-10-06] MEDS: DULoxetine HCl 60 MG CAPSULE.DR PO (08:40)
[2023-10-06] MEDS: cefuroxime axetiL 500 MG TABLET PO (08:40)
[2023-10-06] MEDS: Metoclopramide HCl 10 MG TABLET PO (08:40)
[2023-10-06] MEDS: Gabapentin 100 MG CAPSULE PO (08:40)
[2023-10-06] MEDS: modafiniL 100 MG TABLET 200 MG PO ×2 (08:41→11:55)
[2023-10-06] MEDS: Cariprazine HCl 1.5 MG CAPSULE PO (08:43)
[2023-10-06] MEDS: Lidocaine 4 % Patch ADH..PATCH 1 PATCH TRANSDERMA (08:44)
[2023-10-06] MEDS: Acetaminophen 325 MG TABLET 650 MG PO (08:45)
--- NOTE | 2023-10-06 10:52 | P.DS_ITS ---
DS: Providers Provider Date of Service: 10/06/23 Date of admission: 09/25/23 11:55 Date of discharge: 10/06/23 Primary care physician: Blank Riggins MD Consults: 09/26/23 08:52 Consult to Gastroenterology Routine Consulting Provider: [facility] Reason for consultation: states can only eat ice cream hx of ? esoph dil Attending physician on discharge: Jay Tran Discharging clinician: Tram Miner DS: Diagnosis Discharge Diagnosis (1) OCD (obsessive compulsive disorder): Status: Acute (2) Post traumatic stress disorder (PTSD): Status: Acute (3) Depression, major, severe recurrence: Status: Acute DS: Medications Discharge Medications Home Medications: Home Medications ?Medication ?Instructions ?Recorded ?Confirmed ipratropium 20 mcg-albuterol 100 1 puff inhalation QID 11/17/21 09/24/23 mcg/actuation mist for inhalation (Combivent Respimat) oxycodone-acetaminophen 5 mg-325 0.5 tab PO TID 11/17/21 09/24/23 mg tablet naloxone 4 mg/actuation nasal spray 1 spray intranasal DAILY 04/23/22 09/24/23 Previous Rx's ?Medication ?Instructions ?Recorded albuterol sulfate 90 mcg/actuation 1 puff inhalation RQID PRN 11/28/21 aerosol inhaler Shortness Of Breath 30 days #1 inhaler omeprazole 40 mg capsule,delayed 40 mg PO DAILY #90 caps 04/01/22 release estradiol 0.025 mg/24 hr weekly 1 patch transdermal QWEEK #4 ea 10/01/23 transdermal patch clonazepam 1 mg tablet 1 mg PO BEDTIME 30 days #30 tabs 10/05/23 alprazolam 0.25 mg tablet 0.25 mg PO BID #30 tabs 10/06/23 alprazolam 0.25 mg tablet 0.25 mg PO BID PRN anxiety #30 tabs 10/06/23 amitriptyline 50 mg tablet 50 mg PO BEDTIME #30 tabs 10/06/23 cariprazine 1.5 mg capsule 1.5 mg PO DAILY #30 caps 10/06/23 (Vraylar) cefuroxime axetil 500 mg tablet 500 mg PO BID #5 tabs 10/06/23 duloxetine 60 mg capsule,delayed 60 mg PO BID@0900,1700 #60 caps 10/06/23 release gabapentin 100 mg capsule 100 mg PO TID #90 caps 10/06/23 levothyroxine 75 mcg tablet 75 mcg PO DAILY@0600 #30 tabs 10/06/23 lidocaine 4 % topical patch 1 patch transdermal DAILY #30 ea 10/06/23 (Lidocaine Pain Relief) modafinil 100 mg tablet (Provigil) 200 mg (2 x 100 mg) PO 10/06/23 BID@0800,1200 #60 tabs quetiapine 50 mg tablet 50 mg PO BEDTIME #30 tabs 10/06/23 trazodone 50 mg tablet 50 mg PO BEDTIME #30 tabs 10/06/23 Mental Status Exam Mental Status Exam Patient Appearance: Well Grooomed Patient Orientation: Person, Place, Time and Situation Level of Consciousness: Appropriate Patient Behavior: Appropriate Mood Description: Calm Affect Description: Calm Patient Cognition Impaired: No Ability to Follow Directions: Good Speech Pattern: Clear, Appropriate and Spontaneous Speech Hallucinations: None Delusions: Not Present Thought Process: Linear Thought Content: positive for Intact Judgement: Fair Data Data Completed and Pending Completed studies during hospitalization [Text1]: 09/26/23 08:45 25-OH Vitamin D Total 39 25-Hydroxy Vitamin D2 <4 25-Hydroxy Vitamin D3 39 Imaging Diagnostic Imaging Impressions Hip X-Ray 09/30/23 12:37 IMPRESSION: Status post right hip total arthroplasty. Additional imaging with CT scan recommended if there is clinical concern for fracture or other underlying pathology. This study was presented today, September 30, 2023 for interpretation. Stat results provided at this time as requested by referring provider. Barium Swallow X-Ray 10/01/23 11:14 IMPRESSION: 1. Trace laryngeal penetration with thick barium. 2. 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 3. Mild cricopharyngeal achalasia 4. Abnormal granular appearance of the distal esophageal mucosa, consistent with erosive esophagitis. 5. Esophageal dysmotility 6. Moderate narrowing of the GE junction that may represent achalasia. A benign stricture cannot be ruled out. Recommend correlation with EGD. 7. Very small type I hiatal hernia 8. Thickened mucosal folds in the second and third portion the duodenum that may represent enteritis, versus artifact. This procedure was performed by Pierre Hernandez PA-C, and supervised by Dr. Sal DS: Summary Hospital Course Hospital Course: Patient is a 72-year-old female with very limited supports who was admitted with worsening depression marked anxiety increasing inability to care her for herself not able to leave the house not going to medical appointments crying depressed and hopeless much of the time. She does see this radio news writer in outpatient telephone visits refuses to do video because she is taylor low self- esteem over how she looks compared to how she has looked and dressed in the past. This is a significant reason for why she does not leave the house. She is frequently distraught helpless hopeless with thoughts that she better off . She has had a significant dental infection for months but has been unable to go to the dentist. She is frequent panic attacks frequent migraines depressed severely isolated not taking care of herself medically. Has significant swallowing difficulties states she can only eat ice cream nothing solid has not had this taking care of an extended period of time Past Psychiatric History: -Psychiatrist is Dr. Tran history of past ps ychiatric hospitalizations very long history OCD PTSD panic disorder and depression has generally not been in outpatient counseling despite repeated recommendations Medical Evaluation Reviewed: Yes Placed on antibiotics HOSPITAL COURSE On the unit, Mrs. Chow was admitted on a CV and placed on 15 minutes checks for safety. Pt was admitted under the care of Dr. Jay Tran, please referred to his notes for further detail. In brief, Mrs. Chow presented with engrained ideas about her appearance and how she thinks other people views her. This has prevented her in the past from going to medical appointments as well as conducting video tele-health appointment. She was admitted due to increase isolation including from her half-way providers. On the unit, she mentioned staff making remarks about her apperance including stating that someone had said to her that she looks older than her stated age. However, when asked who this staff member was she declined to provide a name. It is uncertain if it did happen or not, or if it is a continuation of her own view on self imagine, perhaps bordering in delusional or psychosis realm. In terms of medication changes, she was maintain on cymbalta at same dose. She was also continued on amitryptiline, seroquel at bedtime. Xanax was increased to 0.25mg po BID with additional BID PRN doses. She was also continued on clonazepam 1mg po qhs. Pt was mostly visible on the unit, attended to some groups. She was social with select peers. No aggression towards self or others. She adamantly denied suicidal or homicidal ideation. She was taking medications as prescribd. No side effects noted or reported. Pt was seen by GI due to swallowing issues. Per GI; Squamous esophageal mucosa demonstrating active esophagitis with ulceration and features suggestive of esophagitis dissecans superficialis. No fungal organisms or viral cytopathic effect was identified. Time spent discussing smoking cessation with patient: 3 to 10 minutes Status at Discharge Cognitive/behavioral status at discharge: Pt with brighter affect. No SI/HI. No overt psychosis or delusions. Constant sense that others are looking at her and judging her for her appearance. Sleping and eating well. Functional status at discharge: independent ambulation Overall status at discharge: patient is progressing back to baseline Time Spent with Patient Time attestation: Total time managing care of this patient today _35___ minutes. Time spent: Greater than 30 minutes Discharge Plan Discharge Anticipated Discharge Date/Time: 10/06/23 10:39 Patient Disposition: Home, Self-Care Discharge Diagnosis: OCD MDD PTSD Referrals: [facility] [Other] - 1 Week (Patient referred to [facility] for evaluation for outreach services. Agency will reach out to patient after discharge.) [facility]: [facility] [Other] - 1 Week (Hospital Discharge Referral for Therapy Services Clinician to follow-up and schedule intake. You will have a $10 dollar Copay.) [facility]: Chana Moore (psychiatry) [Other] - 10/17/23 2:30 pm (Bridge appointment with psychiatric provider Appointment is by tele-health.) Blank Riggins MD [Primary Care Provider] - 10/09/23 2:20 pm (Your follow up appointment has been scheduled with Amy Heart NP on 10/09/23 at 2:20pm. ) Discharge Medications: New clonazepam 1 mg Tablet 1 mg PO BEDTIME 30 Days Qty: 30 0RF alprazolam 0.25 mg Tablet 0.25 mg PO BID PRN (Reason: anxiety) Qty: 30 0RF cefuroxime axetil 500 mg Tablet 500 mg PO BID Qty: 5 0RF alprazolam 0.25 mg Tablet 0.25 mg PO BID Qty: 30 1RF amitriptyline 50 mg Tablet 50 mg PO BEDTIME Qty: 30 0RF Vraylar 1.5 mg Capsule 1.5 mg PO DAILY Qty: 30 0RF lidocaine [Lidocaine Pain Relief] 4 % Adhesive Patch,Medicated 1 patch transdermal DAILY Qty: 30 0RF Protocol: Apply to: Apply to: lower back trazodone 50 mg Tablet 50 mg PO BEDTIME Qty: 30 0RF levothyroxine 75 mcg Tablet 75 mcg PO DAILY@0600 Qty: 30 0RF gabapentin 100 mg Capsule 100 mg PO TID Qty: 90 0RF modafinil [Provigil] 100 mg Tablet 200 mg PO BID@0800,1200 Qty: 60 0RF duloxetine 60 mg Capsule,Delayed Release(Dr/Ec) 60 mg PO BID@0900,1700 Qty: 60 0RF quetiapine 50 mg Tablet 50 mg PO BEDTIME Qty: 30 0RF Continued omeprazole 40 mg capsule,delayed release(DR/EC) 40 mg PO DAILY Qty: 90 0RF estradiol 0.025 mg/24 hr patch weekly 1 patch transdermal QWEEK Qty: 4 0RF oxycodone-acetaminophen 5-325 mg tablet 0.5 tab PO TID Combivent Respimat 20-100 mcg/actuation mist 1 puff inhalation QID albuterol sulfate 90 mcg/actuation HFA aerosol inhaler 1 puff inhalation RQID PRN (Reason: Shortness Of Breath) 30 Days Qty: 1 0RF naloxone 4 mg/actuation spray,non-aerosol 1 spray intranasal DAILY Discontinued amitriptyline 50 mg tablet 50 mg PO BEDTIME Qty: 90 0RF alprazolam 0.25 mg tablet 0.25 mg PO DAILY PRN (Reason: anxiety) 30 Days Qty: 30 1RF modafinil 200 mg tablet 200 mg PO BID@0800,1200 Qty: 60 2RF duloxetine 60 mg capsule,delayed release(DR/EC) 60 mg PO BID Qty: 120 1RF clonazepam 1 mg tablet 1 mg PO BEDTIME Qty: 30 2RF Rx Instructions: administer 30 minutes before bedtime quetiapine 50 mg tablet 100 mg PO BEDTIME Qty: 60 2RF levothyroxine 100 mcg tablet 1 tab PO DAILY estradiol 0.025 mg/24 hr patch weekly 1 patch topical QWEEK metoclopramide HCl 10 mg tablet 1 tab PO Q48H trazodone 100 mg tablet 100 - 200 mg PO BEDTIME PRN (Reason: insomnia) Discharge Orders: Discharge Order (Routine); Ordered 10/06/23 Ordered By: Tram Miner Diet: Regular diet Activity on Discharge: As tolerated Stand Alone Forms: Patient Portal Discharge page, Community Support Print Language: Mauritanian Care Plan Goals: 1. Maintain mood 2. No SI/HI Health Concerns: follow up with PCP Plan of Treatment: take medications as prescribed go to nearest ED or call 911 in event of emergency Assessment: Pt with brighter, non labile affect. No SI/HI. No psychosis or delusions. Future oriented. No aggression towards self or others.
== END 2023-10-06 13:37 | disposition home or self-care (01) | DRG 882 ==
LOC: HO.ED 06:57 → HO.PGERI 09-25 12:02
PROVIDERS: Student in an Organized Health Care Education/Training Program; Admitting Provider Psychiatry & Neurology Psychiatry; Emergency Provider Emergency Medicine; PCP Family Medicine; Visit Provider Psychiatry & Neurology Psychiatry
DX: F42.9 Obsessive-compulsive disorder, unspecified (principal); F33.2 Major depressive disorder, recurrent severe without psychotic features; F43.10 Post-traumatic stress disorder, unspecified; E03.9 Hypothyroidism, unspecified; F40.01 Agoraphobia with panic disorder; R13.19 Other dysphagia; Z79.890 Hormone replacement therapy; Z79.899 Other long term (current) drug therapy
CPT/HCPCS: 36415; 73502; 74220; 74221; 80053; 80061; 80307; 81001; 82306; 82607; 82746; 84439; 84443; 85025; 93005; 99285; S9485

== ENCOUNTER → 2023-09-25 08:40 | Outpatient (BNV) | payer MEDICARE, SELFPAY | PROVIDERS: Admitting Provider Psychiatry & Neurology Psychiatry; Emergency Provider Emergency Medicine; PCP Family Medicine; Visit Provider Internal Medicine Cardiovascular Disease | DX: I45.9 Conduction disorder, unspecified (principal) | CPT/HCPCS: 93010 ==

== ENCOUNTER 2023-09-25 11:55 | Outpatient (BNV) | payer MEDICARE, SELFPAY | END 2023-10-01 11:00 | PROVIDERS: Admitting Provider Psychiatry & Neurology Psychiatry; Emergency Provider Emergency Medicine; PCP Family Medicine; Visit Provider Physician Assistant Surgical | DX: R13.10 Dysphagia, unspecified (principal) | CPT/HCPCS: 74246 ==

== ENCOUNTER → 2023-09-25 11:55 | Outpatient (BNV) | payer OTHER, SELFPAY | PROVIDERS: Admitting Provider Psychiatry & Neurology Psychiatry; Emergency Provider Emergency Medicine; PCP Family Medicine; Visit Provider Psychiatry & Neurology Psychiatry | DX: F33.2 Major depressive disorder, recurrent severe without psychotic features (principal); F42.9 Obsessive-compulsive disorder, unspecified; F43.11 Post-traumatic stress disorder, acute | CPT/HCPCS: 90792; 99231; 99232 ==

== ENCOUNTER → 2023-09-25 11:55 | Outpatient (BNV) | payer MEDICARE, SELFPAY | PROVIDERS: Admitting Provider Psychiatry & Neurology Psychiatry; Emergency Provider Emergency Medicine; PCP Family Medicine; Visit Provider Internal Medicine Gastroenterology | DX: R13.19 Other dysphagia (principal) | CPT/HCPCS: 99222 ==

== ENCOUNTER → 2023-09-25 11:55 | Outpatient (BNV) | payer OTHER, SELFPAY | PROVIDERS: Admitting Provider Psychiatry & Neurology Psychiatry; Emergency Provider Emergency Medicine; PCP Family Medicine; Visit Provider Social Worker | DX: F33.2 Major depressive disorder, recurrent severe without psychotic features (principal); F42.9 Obsessive-compulsive disorder, unspecified; F43.11 Post-traumatic stress disorder, acute | CPT/HCPCS: 99231; 99239 ==

== ENCOUNTER 2023-10-03 10:00 | Day surgery (SDC) | payer MEDICARE, SELFPAY ==
--- NOTE | 2023-10-01 14:24 | HO.ANESPROP2 ---
Documented by User: Radha Rodriguez NP 10/01/23 14:26 HPI - Anesthesia Eval Consult details Narrative: 72yo F for Upper Endoscopy PMFSH Active Problems Active Problems: All Active Problems Dysphagia (Acute) Anxiety (Acute) Agoraphobia (Acute) Peptic reflux disease (Acute) Hyponatremia (Acute) OCD (obsessive compulsive disorder) (Acute) Post traumatic stress disorder (PTSD) (Acute) Depression, major, severe recurrence (Acute) Agoraphobia with panic disorder (Acute) OCD (obsessive compulsive disorder) (Acute) Anemia (Acute) MDD (major depressive disorder) (Acute) Past Medical History Medical History Hyponatremia Post traumatic stress disorder (PTSD) Depression, major, severe recurrence Acute anxiety OCD (obsessive compulsive disorder) PTSD (post-traumatic stress disorder) Torn rotator cuff Hx of herpes zoster virus Depression Anxiety Non-Hodgkin lymphoma in remission Social History Social History Household Members: None Housing: Condominium Do you presently have visiting nurse or other home services: No Patient Tobacco Use Status: Never used Tobacco e-Cigarette/Vaping Use: Never Used Second Hand Smoke Exposure: No Are you DNR?: No Advance Directives: No Advance Directives Information Provided: Yes Recently lost weight without trying: Yes Nutrition Risks: No Nutritional Risk service: No Sexual orientation: Straight/Heterosexual Meds Allergies Allergy/AdvReac Type Severity Reaction Status Date / Time prednisone [PREDNISONE] Allergy Mild HIVES Verified 09/24/23 05:29 tramadol [TRAMADOL] Allergy Mild HIVES Verified 09/24/23 05:29 penicillin G Allergy Unknown Unknown Verified 09/24/23 05:29 Penicillins [PENICILLINS] Allergy Unknown RASH Verified 09/24/23 05:29 methylprednisolone AdvReac Unknown VOMITING Verified 09/24/23 05:29 [METHYLPREDNISOLONE] Home Medications ?Medication ?Instructions ?Recorded ?Confirmed ?Last Taken ?Type estradiol 0.025 mg/24 hr weekly 1 patch topical QWEEK 11/17/21 09/24/23 Unknown History transdermal patch ipratropium 20 mcg-albuterol 100 1 puff inhalation QID 11/17/21 09/24/23 11/17/21 History mcg/actuation mist for inhalation (Combivent Respimat) levothyroxine 100 mcg tablet 1 tab PO DAILY 11/17/21 09/24/23 11/17/21 History metoclopramide HCl 10 mg tablet 1 tab PO Q48H 11/17/21 09/24/23 Unknown History oxycodone-acetaminophen 5 mg-325 0.5 tab PO TID 11/17/21 09/24/23 11/17/21 History mg tablet naloxone 4 mg/actuation nasal spray 1 spray intranasal DAILY 04/23/22 09/24/23 Unknown History trazodone 100 mg tablet 100 - 200 mg PO BEDTIME PRN 09/25/23 09/25/23 09/23/23 History insomnia 100 mg Exam Pertinent Lab Results Pertinent Lab Results: Laboratory Tests 09/24/23 09/26/23 07:26 08:45 WBC 7.2 Hgb 11.4 L D Hct 35.4 L D Plt Count 294 Sodium 141 Potassium 3.9 Chloride 103 Carbon Dioxide 28 BUN 15 Creatinine 1.02 Narrative Narrative: EKG 09/2023 Vent. Rate : 072 BPM Atrial Rate : 072 BPM P-R Int : 178 ms QRS Dur : 078 ms QT Int : 368 ms P-R-T Axes : 061 -02 046 degrees QTc Int : 402 ms Normal sinus rhythm Normal ECG When compared with ECG of 22-NOV-2021 14:34, Right bundle branch block is no longer Present Assessment and Plan Assessment Anesthesia Assessment: Chart Reviewed Documented by User: Paresh Jiménez MD 10/03/23 10:23 [facility] Past Medical History Medical History Hyponatremia Post traumatic stress disorder (PTSD) Depression, major, severe recurrence Acute anxiety OCD (obsessive compulsive disorder) PTSD (post-traumatic stress disorder) Torn rotator cuff Hx of herpes zoster virus Depression Anxiety Non-Hodgkin lymphoma in remission Family History Family history of problems with anesthesia: No Surgical History History of Problems with Anesthesia: No Social History Social History Household Members: None Housing: Condominium Do you presently have visiting nurse or other home services: No Patient Tobacco Use Status: Never used Tobacco e-Cigarette/Vaping Use: Never Used Second Hand Smoke Exposure: No Are you DNR?: No Advance Directives: No Advance Directives Information Provided: Yes Recently lost weight without trying: Yes Nutrition Risks: No Nutritional Risk service: No Sexual orientation: Straight/Heterosexual Meds Allergies Allergy/AdvReac Type Severity Reaction Status Date / Time prednisone [PREDNISONE] Allergy Mild HIVES Verified 09/24/23 05:29 tramadol [TRAMADOL] Allergy Mild HIVES Verified 09/24/23 05:29 penicillin G Allergy Unknown Unknown Verified 09/24/23 05:29 Penicillins [PENICILLINS] Allergy Unknown RASH Verified 09/24/23 05:29 methylprednisolone AdvReac Unknown VOMITING Verified 09/24/23 05:29 [METHYLPREDNISOLONE] Home Medications ?Medication ?Instructions ?Recorded ?Confirmed ?Last Taken ?Type estradiol 0.025 mg/24 hr weekly 1 patch topical QWEEK 11/17/21 09/24/23 Unknown History transdermal patch ipratropium 20 mcg-albuterol 100 1 puff inhalation QID 11/17/21 09/24/23 11/17/21 History mcg/actuation mist for inhalation (Combivent Respimat) levothyroxine 100 mcg tablet 1 tab PO DAILY 11/17/21 09/24/23 11/17/21 History metoclopramide HCl 10 mg tablet 1 tab PO Q48H 11/17/21 09/24/23 Unknown History oxycodone-acetaminophen 5 mg-325 0.5 tab PO TID 11/17/21 09/24/23 11/17/21 History mg tablet naloxone 4 mg/actuation nasal spray 1 spray intranasal DAILY 04/23/22 09/24/23 Unknown History trazodone 100 mg tablet 100 - 200 mg PO BEDTIME PRN 09/25/23 09/25/23 09/23/23 History insomnia 100 mg Exam Airway Mallampati Class: II TM Dist: >3cm Neck ROM: Full Denture: Upper Loose/Missing/Broken Teeth: Yes and Lower Other: R lower tooth abscess per pt Assessment and Plan Assessment Anesthesia Assessment: Anesthesia Plan Discussed Final Anesthetic Review Family History of Problems with Anesthesia: No History of Problems with Anesthesia: No NPO: Yes ASA Class: III Final Preanesthetic Review: No Changes in Pt Med Stat, Meds/Allgs Chart Reviewed, Consent Obtained/Reviewed and Anes Risks/Benef Reviewed Patient Risk: Intermediate Procedure Risk: Low Anesthetic Plan Anesthetic Plan: TIVA Disposition: Standard PACU
[2023-10-03 10:14] VITALS: BP 152/85; PULSE 91; RESP 20; TEMP 36.1; O2SAT 96; BMI 23.0
--- NOTE | 2023-10-03 10:14 | MHC.SHP ---
Pre-Procedural Eval Section A - 24 Hr Update-Section A only Date of Service: 10/03/23 The patient is an INPATIENT: Yes Changes since office visit: Yes New Medical Problems, Yes Changes in Medication and Yes Patient answered all questions; No Cold of Flu in the past 2 weeks The patient has been examined within 24 hours of the surgical procedure. The History & Physical has been completed within 30 days and I have reviewed it.: Yes Section B - Complete if H&P > 30 days Chief Complaint: Dysphagia Allergies: Allergies Allergy/AdvReac Type Severity Reaction Status Date / Time prednisone [PREDNISONE] Allergy Mild HIVES Verified 09/24/23 05:29 tramadol [TRAMADOL] Allergy Mild HIVES Verified 09/24/23 05:29 penicillin G Allergy Unknown Unknown Verified 09/24/23 05:29 Penicillins [PENICILLINS] Allergy Unknown RASH Verified 09/24/23 05:29 methylprednisolone AdvReac Unknown VOMITING Verified 09/24/23 05:29 [METHYLPREDNISOLONE] Plan Diagnosis/Plan: Unchanged I have reviewed the history and physical and performed a pertinent physical examination on my patient. No changes have occurred unless specified. Time Spent With Patient Time: Total time managing care of this patient today ____ minutes.
--- NOTE | 2023-10-03 10:34 | W.PM.OPN ---
Operative Note Operative Note Date of Service: 10/03/23 Narrative: FLEXIBLE TRANSORAL UPPER GASTROINTESTINAL ENDOSCOPY WITH BIOPSIES ESOPHAGEAL BALLOON DILATION Pre-op diagnosis: Dysphagia, abnormal barium swallow Post-op diagnosis: GERD, Esophageal stricture, gastritis Endoscopist:? Keren Herrera MD Anesthesia:?MAC UPPER ENDOSCOPY Consent: Indications for the procedure and potential complications of bleeding, perforation, reaction to medications and missed diagnosis were discussed with the patient and informed consent was obtained. Instrument: Olympus GIF H 190 mid size upper endoscope Monitoring: Vital signs and clinical assessment, continuous EKG monitoring, Pulse oximetry, Carbon Dioxide monitoring and blood pressure monitoring were done throughout the procedure. Procedure: The patient was placed in the left lateral decubitis position and pre-procedure medications were administered and a bite block was placed. The endoscope was inserted into the mouth and advanced under direct vision to the third part of duodenum. A careful inspection was made as the upper endoscope was withdrawn including a retroflexed examination of the proximal stomach; Findings and interventions are described below. Findings: Larynx: Normal Esophagus: GE junction at 35 cms. Thick yellow white exudate coating the vo of distal esophagus with scarring and stricture. Unable to pass a mid size upper endoscope into the stomach. Esophageal balloon dilation was performed with a 10, 11 and 12mm CRE balloon x 60 seconds at each level. Upper endoscope was advanced into the stomach with mild resistance. Esophageal brushings were obtained to check for esophageal candidiasis Biopsies were obtained from proximal and distal esophagus to check for EOE Stomach: Mild gastric antral erythema - biopsies were obtained from the antrum to check for Helicobacter pylori. Grade 2 flap valve on retroflexed examination of the cardia. Duodenum: Normal bulb and descending duodenum Intervention: Biopsies and esophageal balloon dilation as noted above Impression and Post Procedure Diagnosis: Endoscopy Findings: ESOPHAGUS: Thick yellow white exudate coating the vo of distal esophagus with scarring and stricture. Unable to pass a mid size upper endoscope into the stomach. Esophageal balloon dilation was performed with a 10, 11 and 12mm CRE balloon x 60 seconds at each level. Upper endoscope was advanced into the stomach with mild resistance. 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 Above findings were reviewed with the patient. ADDENDUM FROM UTD: Esophagitis dissecans superficialis is a rare occurrence characterized by sloughing of the entire length of esophageal mucosal epithelium The sloughed mucosal lining usually appears as a tubular cast within or tethered to the esophageal lumen?and. It is most commonly seen in association with desquamating dermatologic disorders, particularly pemphigus vulgaris, where it has been described in up to 5 percent of patients It has also been described as a complication of rigid endoscopy with esophageal dilation, ingestion of oral bisphosphonates or?tablets, celiac disease, and the use of certain immunotherapies.
[2023-10-03 11:08] VITALS: BP 93/54; PULSE 82; RESP 16; TEMP 36.2; O2SAT 96
[2023-10-03 11:23] VITALS: BP 124/69; PULSE 78; RESP 16; O2SAT 96
[2023-10-03 11:40] VITALS: BP 110/72; PULSE 78; RESP 18; TEMP 36.2; O2SAT 95
== END 2024-01-02 13:38 | disposition home or self-care (01) ==
PROVIDERS: PCP Family Medicine; Visit Provider Internal Medicine Gastroenterology
PROC: 0DJ08ZZ Inspection of Upper Intestinal Tract, Via Natural or Artificial Opening Endoscopic (ICD-10-PCS; CPT 43235; principal; 2023-10-03 10:30)
DX: K22.2 Esophageal obstruction (principal); K29.70 Gastritis, unspecified, without bleeding; K21.9 Gastro-esophageal reflux disease without esophagitis; Z88.0 Allergy status to penicillin; Z88.5 Allergy status to narcotic agent; Z88.8 Allergy status to other drugs, medicaments and biological substances
CPT/HCPCS: 43249; 43239; 87102; 87106; 88305; 88312; 88313; 88342; C1726; J2704

== ENCOUNTER → 2023-10-03 10:00 | Outpatient (BNV) | payer MEDICARE, SELFPAY | PROVIDERS: PCP Family Medicine; Visit Provider Internal Medicine Gastroenterology | DX: K22.2 Esophageal obstruction (principal); K21.9 Gastro-esophageal reflux disease without esophagitis; K29.70 Gastritis, unspecified, without bleeding | CPT/HCPCS: 43239; 43249 ==

== ENCOUNTER 2023-10-23 15:04 | Outpatient (AMB) | payer OTHER, SELFPAY ==
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
== END 2023-10-23 15:04 | disposition home or self-care (01) ==
LOC: HO.HOP 15:04
PROVIDERS: PCP Family Medicine; Visit Provider Clinical Nurse Specialist Psychiatric/Mental Health
DX: F42.9 Obsessive-compulsive disorder, unspecified (principal); F43.10 Post-traumatic stress disorder, unspecified; F33.2 Major depressive disorder, recurrent severe without psychotic features; F40.01 Agoraphobia with panic disorder
CPT/HCPCS: 99214

== ENCOUNTER → 2023-10-23 15:04 | Outpatient (BNVA) | payer MEDICARE, SELFPAY | PROVIDERS: PCP Family Medicine; Visit Provider Clinical Nurse Specialist Psychiatric/Mental Health ==

== ENCOUNTER 2023-11-03 17:31 | Outpatient (AMB) | payer OTHER, SELFPAY ==
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
== END 2023-11-03 17:34 | disposition home or self-care (01) ==
LOC: HO.HOP 17:32
PROVIDERS: PCP Family Medicine; Visit Provider Clinical Nurse Specialist Psychiatric/Mental Health
DX: F42.2 Mixed obsessional thoughts and acts (principal); F40.01 Agoraphobia with panic disorder; F43.10 Post-traumatic stress disorder, unspecified; F33.41 Major depressive disorder, recurrent, in partial remission
CPT/HCPCS: 90833; 99213

== ENCOUNTER → 2023-11-03 17:31 | Outpatient (BNVA) | payer OTHER, SELFPAY | PROVIDERS: PCP Family Medicine; Visit Provider Clinical Nurse Specialist Psychiatric/Mental Health | DX: F42.2 Mixed obsessional thoughts and acts (principal); F40.01 Agoraphobia with panic disorder; F43.10 Post-traumatic stress disorder, unspecified; F33.41 Major depressive disorder, recurrent, in partial remission ==

== ENCOUNTER 2023-12-08 18:15 | Outpatient (AMB) | payer OTHER, SELFPAY ==
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
== END 2023-12-08 18:16 | disposition home or self-care (01) ==
LOC: HO.HOP 18:15
PROVIDERS: PCP Family Medicine; Visit Provider Clinical Nurse Specialist Psychiatric/Mental Health
DX: F33.41 Major depressive disorder, recurrent, in partial remission (principal); F42.2 Mixed obsessional thoughts and acts; F43.10 Post-traumatic stress disorder, unspecified
CPT/HCPCS: 99214

== ENCOUNTER → 2023-12-08 18:15 | Outpatient (BNVA) | payer OTHER, SELFPAY | PROVIDERS: PCP Family Medicine; Visit Provider Clinical Nurse Specialist Psychiatric/Mental Health | DX: F33.41 Major depressive disorder, recurrent, in partial remission (principal); F42.2 Mixed obsessional thoughts and acts; F43.10 Post-traumatic stress disorder, unspecified ==

== ENCOUNTER 2023-12-25 14:19 | Outpatient (AMB) | payer OTHER, SELFPAY ==
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
== END 2023-12-25 14:20 | disposition home or self-care (01) ==
LOC: HO.HOP 14:19
PROVIDERS: PCP Family Medicine; Visit Provider Clinical Nurse Specialist Psychiatric/Mental Health
DX: F33.41 Major depressive disorder, recurrent, in partial remission (principal); F42.2 Mixed obsessional thoughts and acts; F43.10 Post-traumatic stress disorder, unspecified; F40.01 Agoraphobia with panic disorder
CPT/HCPCS: 99214

== ENCOUNTER → 2023-12-25 14:19 | Outpatient (BNVA) | payer OTHER, SELFPAY | PROVIDERS: PCP Family Medicine; Visit Provider Clinical Nurse Specialist Psychiatric/Mental Health | DX: F33.41 Major depressive disorder, recurrent, in partial remission (principal); F42.2 Mixed obsessional thoughts and acts; F43.10 Post-traumatic stress disorder, unspecified; F40.01 Agoraphobia with panic disorder ==

== ENCOUNTER 2024-02-02 13:53 | Outpatient (AMB) | payer OTHER, SELFPAY ==
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
== END 2024-02-02 13:53 | disposition home or self-care (01) ==
LOC: HO.HOP 13:53
PROVIDERS: PCP Family Medicine; Visit Provider Clinical Nurse Specialist Psychiatric/Mental Health
DX: F33.41 Major depressive disorder, recurrent, in partial remission (principal); F42.2 Mixed obsessional thoughts and acts; F43.10 Post-traumatic stress disorder, unspecified
CPT/HCPCS: 99214

== ENCOUNTER → 2024-02-02 13:53 | Outpatient (BNVA) | payer OTHER, SELFPAY | PROVIDERS: PCP Family Medicine; Visit Provider Clinical Nurse Specialist Psychiatric/Mental Health | DX: F33.41 Major depressive disorder, recurrent, in partial remission (principal); F42.2 Mixed obsessional thoughts and acts; F43.10 Post-traumatic stress disorder, unspecified ==

== ENCOUNTER 2024-03-06 03:57 | Emergency (ER) | payer MEDICARE, SELFPAY ==
--- NOTE | ~2024-03-06 | XR_ITS ---
EXAMINATION: XR KNEE, LEFT CLINICAL INFORMATION: Fall pain COMPARISON: None available. TECHNIQUE: AP and lateral views of the left knee. FINDINGS: No acute visible fracture or dislocation. Chronic appearing deformity along the medial aspect of the proximal tibial metadiaphysis with cortical thickening. [id number] narrowing of the medial femorotibial compartment. Slight chondrocalcinosis along the lateral femorotibial compartment. A fabella is noted in the posterior compartment. Joint space alignment otherwise maintained. Trace knee joint effusion. Slight soft tissue prominence in the suprapatellar region with soft tissue edema along the lateral knee and proximal fibula. XR/XR knee LT 2V IMPRESSION: 1. No acute visible fracture or dislocation. 2. Chronic appearing deformity along the medial aspect of the proximal tibial metadiaphysis with cortical thickening. 3. [id number] narrowing of the medial femorotibial compartment. 4. Slight chondrocalcinosis along the lateral femorotibial compartment. 5. Trace knee joint effusion. 6. Slight soft tissue prominence in the suprapatellar region with soft tissue edema along the lateral knee and proximal fibula. Electronically signed by: Yamilka Julien MD 03/06/2024 08:26 AM EDT
[2024-03-06 04:14] VITALS: BP 135/78; PULSE 108; RESP 20; TEMP 36.8; O2SAT 98; BMI 24.2
--- NOTE | 2024-03-06 05:22 | PC.NURSE ---
resumed care of patient at 0500, pt is awaiting to be seen by provider at this time .
--- NOTE | 2024-03-06 06:06 | ED_ITS ---
HPI - Extremity Injury (Lower) General Chief Complaint: Extremity Injury, Lower Stated Complaint: fall, knee pain/swollen Time Seen by Provider: 03/06/24 04:59 Source: patient Mode of arrival: ambulatory Limitations: no limitations History of Present Illness ED Provider: Dr. Escamilla HPI Narrative: 3 days ago patient was trying to avoid a skunk when she tripped and fell on her left knee. Now with increasing swelling and ecchymosis to her leg Related Data Home Medications ?Medication ?Instructions ?Recorded ?Confirmed ipratropium 20 mcg-albuterol 100 1 puff inhalation QID 11/17/21 12/25/23 mcg/actuation mist for inhalation (Combivent Respimat) oxycodone-acetaminophen 5 mg-325 0.5 tab PO TID 11/17/21 12/25/23 mg tablet Previous Rx's ?Medication ?Instructions ?Recorded albuterol sulfate 90 mcg/actuation 1 puff inhalation RQID PRN 11/28/21 aerosol inhaler Shortness Of Breath 30 days #1 inhaler omeprazole 40 mg capsule,delayed 40 mg PO DAILY #90 caps 04/01/22 release estradiol 0.025 mg/24 hr weekly 1 patch transdermal QWEEK #4 ea 10/01/23 transdermal patch lidocaine 4 % topical patch 1 patch transdermal DAILY #30 ea 10/06/23 (Lidocaine Pain Relief) metoclopramide HCl 10 mg tablet 10 mg PO Q48H PRN nausea and 10/06/23 vomiting #10 tabs naloxone 4 mg/actuation nasal spray 1 spray intranasal DAILY PRN 10/06/23 opioid overdose #2 ea levothyroxine 75 mcg tablet 75 mcg PO DAILY@0600 #30 tabs 11/13/23 alprazolam 0.25 mg tablet 0.25 mg PO BID anxiety #60 tabs 02/02/24 amitriptyline 50 mg tablet 50 mg PO BEDTIME #90 tabs 02/02/24 cariprazine 1.5 mg capsule 1.5 mg PO DAILY #30 caps 02/02/24 (Vraylar) clonazepam 1 mg tablet 1 mg PO BEDTIME 30 days #30 tabs 02/02/24 duloxetine 60 mg capsule,delayed 60 mg PO BID@0900,1700 #60 caps 02/02/24 release gabapentin 100 mg capsule 100 mg PO TID #90 caps 02/02/24 modafinil 200 mg tablet 200 mg PO BID #60 tabs 02/02/24 quetiapine 50 mg tablet 50 mg PO BEDTIME #30 tabs 02/02/24 trazodone 50 mg tablet 50 mg PO .COMPLEX #45 tabs 02/02/24 Allergies Allergy/AdvReac Type Severity Reaction Status Date / Time prednisone [PREDNISONE] Allergy Mild HIVES Verified 03/06/24 04:15 tramadol [TRAMADOL] Allergy Mild HIVES Verified 03/06/24 04:15 penicillin G Allergy Unknown Unknown Verified 03/06/24 04:15 Penicillins [PENICILLINS] Allergy Unknown RASH Verified 03/06/24 04:15 methylprednisolone AdvReac Unknown VOMITING Verified 03/06/24 04:15 [METHYLPREDNISOLONE] Review of Systems Review of Systems: Yes all other systems are reviewed and are negative Neurologic: Denies Sensory deficit (Neuro) PMFSH Past Medical History Medical History Hyponatremia Post traumatic stress disorder (PTSD) Depression, major, severe recurrence Acute anxiety OCD (obsessive compulsive disorder) PTSD (post-traumatic stress disorder) Torn rotator cuff Hx of herpes zoster virus Depression Anxiety Non-Hodgkin lymphoma in remission Social History Social History Household Members: None Housing: Condominium Do you presently have visiting nurse or other home services: No Patient Tobacco Use Status: Never used Tobacco Smoked in Last 30 Days: No e-Cigarette/Vaping Use: Never Used Second Hand Smoke Exposure: No Use of substances other than those prescribed or required for medical reasons: No Advance Directives: Yes Advance Directives Information Provided: No Advance Directives on File: No Do you have a plan to hurt others: No Plan service: No Sexual orientation: Straight/Heterosexual Physical Exam Vital Signs: Vital Signs: Last Vital Signs Temp 98.2 F 03/06/24 04:14 Pulse 108 H 03/06/24 04:14 Resp 20 03/06/24 04:14 BP 135/78 03/06/24 04:14 Pulse Ox 98 03/06/24 04:14 O2 Del Method Room Air 03/06/24 04:14 BMI result Body Mass Index 24.2 Const: Other: anxious frail elderly female in no acute distress Nutritional Appearance: thin Orientation/consciousness: oriented to person and patient oriented x3 Limitations: no limitations HEENT: Head: Yes normal to inspection Ears: external ears normal General nose exam: Normal external nose present Mouth: Normal oral and palatal mucosa present and oropharynx normal Throat: Yes posterior oropharynx normal Eyes: General: appearance normal, both eyes and all related structures Neck: Other: supple Neck: Yes normal visual inspection Chest: Chest palpation & inspection: normal inspection of the chest Resp: Auscultation: clear to auscultation bilaterally Cardio: Jugular venous distension: no JVD Rate: regular rate Rhythm: regular rhythm Heart sounds: S1 normal heart sound present and S2 normal heart sound present GI: Inspection: Yes normal to inspection Palpation (GI): Soft to palpation, nontender and No hepatosplenomegaly present Auscultation: normal bowel sounds : General: Yes no CVA tenderness Back/Spine/Pelvis: Back: no CVA tenderness Skin: General skin exam: no rashes or lesions noted Neuro: General: oriented to person and patient oriented x3 Cranial nerves: Yes CN's II-XII intact bilaterally Motor exam (neuro): 5/5 motor strength present throughout Sensory Exam: No Sensory deficit (Neuro) Extrem: Other: contusion and abrasion to patella, swelling and ecchymosis to the entire lower extremity, good Dp and PT pulses Psych: Appearance: grossly normal Course Reevaluation(s) Reevaluation #1: patient with fractured patella on xray will place on knee immobilizer and dc home Time: 06:10 Medical Decision Making Differential Diagnosis Differential Diagnoses: The differential diagnosis associated with the presentation includes (leg fracture, Patella fracture, leg contusion, tibial plateau fracture) Admission/Observation Consideration of admission/observation: Escalation of care including admission/observation considered (upon arrival patient considered for admission) Independent Interpretation I performed an independent interpretation of an: Plain X-Ray (patella fracture) Tests considered The following testing was considered but not selected: CT of knee considered but fracture not displaced Discharge Plan Discharge Clinical Impression: Fracture, patella Patient Disposition: Home, Self-Care Instructions: Crutch Instructions (ED), Patellar Fracture (ED) Prescriptions: No Action omeprazole 40 mg capsule,delayed release(DR/EC) 40 mg PO DAILY Qty: 90 0RF estradiol 0.025 mg/24 hr patch weekly 1 patch transdermal QWEEK Qty: 4 0RF levothyroxine 75 mcg tablet 75 mcg PO DAILY@0600 Qty: 30 0RF oxycodone-acetaminophen 5-325 mg tablet 0.5 tab PO TID Combivent Respimat 20-100 mcg/actuation mist 1 puff inhalation QID albuterol sulfate 90 mcg/actuation HFA aerosol inhaler 1 puff inhalation RQID PRN (Reason: Shortness Of Breath) 30 Days Qty: 1 0RF lidocaine [Lidocaine Pain Relief] 4 % Adhesive Patch,Medicated 1 patch transdermal DAILY Qty: 30 0RF Protocol: Apply to: Apply to: lower back naloxone 4 mg/actuation spray,non-aerosol 1 spray intranasal DAILY PRN (Reason: opioid overdose) Qty: 2 0RF metoclopramide HCl 10 mg Tablet 10 mg PO Q48H PRN (Reason: nausea and vomiting) Qty: 10 0RF trazodone 50 mg tablet 50 mg PO .COMPLEX Qty: 45 2RF Rx Instructions: 50 mg orally take one tablet at bedtime and may take an additional 1/2 tab in middle of night if awake alprazolam 0.25 mg tablet 0.25 mg PO BID Qty: 60 0RF amitriptyline 50 mg tablet 50 mg PO BEDTIME Qty: 90 0RF Vraylar 1.5 mg capsule 1.5 mg PO DAILY Qty: 30 0RF clonazepam 1 mg tablet 1 mg PO BEDTIME 30 Days Qty: 30 0RF duloxetine 60 mg capsule,delayed release(DR/EC) 60 mg PO BID@0900,1700 Qty: 60 0RF gabapentin 100 mg capsule 100 mg PO TID Qty: 90 0RF modafinil 200 mg tablet 200 mg PO BID Qty: 60 0RF quetiapine 50 mg tablet 50 mg PO BEDTIME Qty: 30 0RF [place] [facility] [place] [Provider Group] - 3 days Print Language: Greenlandic
[2024-03-06 06:27] VITALS: BP 124/73; PULSE 101; RESP 20; TEMP 37.2; O2SAT 95
== END 2024-03-06 06:29 | disposition home or self-care (01) ==
PROVIDERS: Emergency Provider Emergency Medicine
DX: S82.002A Unspecified fracture of left patella, initial encounter for closed fracture (principal); W01.0XXA Fall on same level from slipping, tripping and stumbling without subsequent striking against object, initial encounter; Y93.01 Activity, walking, marching and hiking; Y92.410 Unspecified street and highway as the place of occurrence of the external cause; Y99.9 Unspecified external cause status
CPT/HCPCS: 73560; 99283

== ENCOUNTER 2024-03-08 12:03 | Outpatient (AMB) | payer OTHER, SELFPAY ==
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
== END 2024-03-08 12:05 | disposition home or self-care (01) ==
LOC: HO.HOP 12:03
PROVIDERS: Visit Provider Clinical Nurse Specialist Psychiatric/Mental Health
DX: F33.41 Major depressive disorder, recurrent, in partial remission (principal); F42.2 Mixed obsessional thoughts and acts; F43.10 Post-traumatic stress disorder, unspecified; F40.01 Agoraphobia with panic disorder
CPT/HCPCS: 99214

== ENCOUNTER → 2024-03-08 12:03 | Outpatient (BNVA) | payer MEDICARE, SELFPAY | PROVIDERS: Visit Provider Clinical Nurse Specialist Psychiatric/Mental Health | DX: F33.41 Major depressive disorder, recurrent, in partial remission (principal); F42.2 Mixed obsessional thoughts and acts; F43.10 Post-traumatic stress disorder, unspecified; F40.01 Agoraphobia with panic disorder ==

== ENCOUNTER 2024-03-22 16:12 | Outpatient (AMB) | payer SELFPAY ==
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
== END 2024-03-22 16:13 | disposition home or self-care (01) ==
LOC: HO.HOP 16:12
PROVIDERS: Visit Provider Clinical Nurse Specialist Psychiatric/Mental Health
DX: F33.41 Major depressive disorder, recurrent, in partial remission (principal); F42.2 Mixed obsessional thoughts and acts; F40.01 Agoraphobia with panic disorder
CPT/HCPCS: 99214

== ENCOUNTER → 2024-03-22 16:12 | Outpatient (BNVA) | payer SELFPAY | PROVIDERS: Visit Provider Clinical Nurse Specialist Psychiatric/Mental Health | DX: F33.41 Major depressive disorder, recurrent, in partial remission (principal); F42.2 Mixed obsessional thoughts and acts; F40.01 Agoraphobia with panic disorder; F43.10 Post-traumatic stress disorder, unspecified | CPT/HCPCS: 99212 ==

== ENCOUNTER 2024-03-24 08:24 | Outpatient (AMB) | payer MEDICARE, SELFPAY ==
[2024-03-24 08:39] VITALS: BMI 24.2
--- NOTE | 2024-03-24 08:39 | MHC.OFFVIS ---
Vital Signs 03/24/24 08:39 Height 5 ft 1 in Weight 128 lb BMI 24.2 Intake Visit Reasons: FC- LT Fracture, patella Intake Note: Ibeth a 73 year old female who presents today for an ER follow up of left knee, DOI 03/03/24. Patient reports that she was trying to avoid a skunk when she tripped and fell on her knee. She presented to [facility] a few days later, x-rays were obtained and referred to orthopedics. Her current pain level is a 9-10 out of 10. States Motrin and Tylenol only takes the edge off. Her pain radiates down her leg and a tingling sensation in her knee. She has bruising in her foot as well as pain in her foot and ankle, making is difficult to walk. Allergies prednisone [PREDNISONE] Allergy (Mild, Verified 03/24/24 08:43) HIVES tramadol [TRAMADOL] Allergy (Mild, Verified 03/24/24 08:43) HIVES penicillin G Allergy (Unknown, Verified 03/24/24 08:43) Unknown Penicillins [PENICILLINS] Allergy (Unknown, Verified 03/24/24 08:43) RASH methylprednisolone [METHYLPREDNISOLONE] Adverse Reaction (Unknown, Verified 03/24/24 08:43) VOMITING HPI HPI FC- LT Fracture, patella: Details: 73-year-old female who presents to the office today for an ER follow-up of left knee injury, 03/03/24. She reports she was trying to avoid a skunk when she tripped and fell on her knee. She was seen at ER a few days later where x-rays were performed, immobilizer was given, and she was referred to our office. She currently states she has tingling sensation and pain at in her knee that radiates down her leg. She rates the pain as about 9 on the scale of 0-10. She uses Motrin and Tylenol for her pain that only takes the edge off. She also reports she has bruising in her foot as well as pain in her foot and ankle, making her difficult to walk. [facility] Medical History (Updated 03/24/24 @ 09:05 by Demarcus Corrales PA-C) Hyponatremia Post traumatic stress disorder (PTSD) Depression, major, severe recurrence Acute anxiety OCD (obsessive compulsive disorder) PTSD (post-traumatic stress disorder) Torn rotator cuff Hx of herpes zoster virus Depression Anxiety Non-Hodgkin lymphoma in remission Surgical History (Updated 03/24/24 @ 08:43 by FERN Antonio) Hx of endoscopy Social History (Updated 03/24/24 @ 08:44 by FERN Antonio) Household Members: None Housing: Condominium Do you presently have visiting nurse or other home services: No Patient Tobacco Use Status: Never used Tobacco e-Cigarette/Vaping Use: Never Used Second Hand Smoke Exposure: No service: No Current occupational status: unemployed Sexual orientation: Straight/Heterosexual Review of Systems Const All systems reviewed & are unremarkable except as noted in HPI and below Physical Exam Vital Signs: BMI result Body Mass Index 24.2 Const General: cooperative, healthy appearing, comfortable, no acute distress, well developed and alert Orientation/consciousness: patient oriented x3 HEENT Head: Yes normal to inspection, Yes normocephalic and Yes atraumatic Eyes General: appearance normal, both eyes and all related structures Resp Effort & Inspection: normal respiratory effort and able to speak in complete sentences Cardio Rate: regular rate Peripheral pulses: Peripheral pulses 2+ throughout GI Palpation (GI): Soft to palpation Skin Lesions: no lesions Rashes: no rashes Neuro General: patient oriented x3 Extrem Other: Left knee: Skin is intact. She does have an abrasion over the patella with tenderness at the inferior pull of patella. Tenderness over the medial aspect of proximal tibia. She has full extension however she can flex to 15 degrees. Calf supple, nontender. NVI. Office Procedures AMB Fracture Care Fracture Billing Code: Fracture Billing Code Results Reviewed Results Reviewed: Xrays were obtained in the office today and personally reviewed by me of the left knee show non displaced patella fracture with non displaced tibial plateau fracture Assessment & Plan Assessment & Plan (1) Left patella fracture: Code(s): S82.002A - Unspecified fracture of left patella, initial encounter for closed fracture Category: Medical (2) Tibial plateau fracture, left: Code(s): S82.142A - Displaced bicondylar fracture of left tibia, initial encounter for closed fracture Category: Medical Plan She will continue with the knee immobilizer which was given to her in the ED. She will toe touch weight bear as tolerated. She can remove the brace while resting at home and work on quad activation and also slight flexion of patella to prevent significant stiffness. She will avoid bending to 90 degrees to prevent displacement. A CT scan of the left knee was ordered to further evaluate the tibial plateau and once the scan is complete we will contact her to discuss the results and plan moving forward. Orders: Orders XR knee LT 2V Today M25.562 - Pain in left knee CT knee LT wo IV con Today S82.002A - Unspecified fracture of left patella, initial encounter for closed fracture, S82.142A - Displaced bicondylar fracture of left tibia, initial encounter for closed fracture Patient Instructions: Scribed for Demarcus Corrales PA-C, by Philip Morales family practice medical doctor, on 03/24/2024 at 9:00 AM EST.? I, Demarcus Corrales PA-C, have personally reviewed and agree with the information entered by the scribe. Coding Level of Care Code New Pt Level 3 (57893) Complex EM visit Add On G2211 Diagnoses Left patella fracture S82.002A Tibial plateau fracture, left S82.142A CPT Codes Fracture Care - Fracture Billing Code: Fracture Billing Code ([id number])
== END 2024-03-24 09:23 | disposition home or self-care (01) ==
LOC: HO.HOS 08:25
PROVIDERS: Visit Provider Physician Assistant
DX: S82.002A Unspecified fracture of left patella, initial encounter for closed fracture (principal); S82.142A Displaced bicondylar fracture of left tibia, initial encounter for closed fracture
CPT/HCPCS: 99203; G2211

== ENCOUNTER 2024-03-24 09:41 | Outpatient (REF) | payer MEDICARE, SELFPAY ==
--- NOTE | ~2024-03-24 | XR_ITS ---
EXAMINATION: XR KNEE, LEFT CLINICAL INFORMATION: Pain in the left knee COMPARISON: Prior x-rays February 2024. TECHNIQUE: Four views of the left knee. FINDINGS: There is a mildly comminuted fracture of the predominantly the metaphysis of the tibia. There are 2 cortical fragment displaced medially with the apex of the adjacent fragments directed medially forming a triangular shape.. The remaining fractures nondisplaced or minimally displaced with ill-defined fracture lines extending throughout the metaphysis. Possible fracture extension to the central portion of the tibial spines of the tibial plateau. Gross appears to be a nondisplaced fracture the distal pole of the patella. There is extensive chondrocalcinosis. No effusion. No additional abnormalities. XR/XR knee LT 2V IMPRESSION: Fracture of the proximal tibia involving the metaphysis and possibly extending to the tibial plateau at the level of the tibial spines. Nondisplaced fracture the distal pole of the patella The physician support associated will be contacting the ordering physician to ensure receipt of this report on 03/30/2024 at 8:58 PM Electronically signed by: Oswaldo Giles MD 03/30/2024 08:59 AM KATI JANG
== END 2024-03-24 09:42 | disposition home or self-care (01) ==
LOC: HO.HOSX 09:41
PROVIDERS: Visit Provider Physician Assistant
DX: M25.562 Pain in left knee (principal); S82.002A Unspecified fracture of left patella, initial encounter for closed fracture; S82.142A Displaced bicondylar fracture of left tibia, initial encounter for closed fracture
CPT/HCPCS: 73560; 99202

== ENCOUNTER 2024-05-24 14:48 | Outpatient (AMB) | payer OTHER, SELFPAY ==
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
== END 2024-05-24 15:04 | disposition home or self-care (01) ==
LOC: HO.HOP 14:48
PROVIDERS: Visit Provider Clinical Nurse Specialist Psychiatric/Mental Health
DX: F42.2 Mixed obsessional thoughts and acts (principal); F43.10 Post-traumatic stress disorder, unspecified; F32.9 Major depressive disorder, single episode, unspecified; F40.01 Agoraphobia with panic disorder
CPT/HCPCS: 98016

== ENCOUNTER → 2024-05-24 14:48 | Outpatient (BNVA) | payer MEDICARE, SELFPAY | PROVIDERS: Visit Provider Clinical Nurse Specialist Psychiatric/Mental Health | DX: K22.9 Disease of esophagus, unspecified (principal) ==

== ENCOUNTER 2024-06-24 11:10 | Outpatient (AMB) | payer OTHER, SELFPAY ==
--- OUTSIDE RECORDS SUMMARY | 2024-06-24 11:14 | XMS_ITS | Referral Summary ---
Author Organization [facility] Address [address] [place] [address] Care Team Providers Care Cma Or Lpn Name Role Phone Terrie Boyer MD Primary Care Provider [phone]- [phone] Allergies Active Allergy Reactions Criticality Noted Date Comments Methylprednisolone Rash 09/03/2020 Penicillins Rash 09/03/2020 Prednisolone Rash 09/03/2020 Tramadol Rash 09/03/2020 Medications gabapentin (NEURONTIN) 100 mg capsule Take 3 capsules (300 mg total) by mouth 3 times a day as needed (pain). 30 capsule 09/03/2020 Active Social History Tobacco Use Types Packs/Day Years Used Date Smoking Tobacco: Never Smokeless Tobacco: Never Alcohol Use Standard Drinks/Week Comments Never 0 (1 standard drink = 0.6 oz pur e alcohol) Comments No Sex and Gender Information Value Date Recorded Sex Assigned at Not on file Legal Sex Female 6:22 AM EDT Gender Identity Not on file Sexual Orientation Not on file Last Filed Vital Signs Vital Sign Reading Time Taken Comments Blood Pressure 117/71 09/03/2020 7:44 AM EDT Pulse 70 09/03/2020 7:44 AM EDT Temperature 37.6 ??C (99.7 ??F) 09/03/2020 5:08 AM ED T Respiratory Rate 16 09/03/2020 7:44 AM EDT Oxygen Saturation 98% 09/03/2020 7:44 AM EDT Inhaled Oxygen Concentration - - Weight - - Height - - Body Mass Index - - Plan of Treatment Not on file Insurance [facility] MCR Care Teams Cma Or Lpn Relationship Specialty Start Date End Date Terrie Boyer MD [address] [place] [address] PCP - General 09/03/20
--- OUTSIDE RECORDS SUMMARY | 2024-06-24 11:14 | XMS_ITS | Clinical Summary ---
Author Organization [facility] Address [address] [place] [address] Care Team Providers Care Pharmaceutical Development Technician Name Role Phone Terrie Boyer MD Primary Care Provider [phone]- [phone] Allergies Active Allergy Reactions Criticality Noted Date [...] Mass Index - - Plan of Treatment Health Maintenance Due Date Last Done Comments Cologuard 1950 Colon Cancer Screening 1950 Colonoscopy 1951 FOBT / Fit Test 1950 Sigmoidoscopy 1951 DTaP,Tdap,and Td Vaccines (1 - Tdap) 12/03/1973 Mammogram 1991 Osteoporosis Screening 12/03/2001 Zoster Vaccines (1 of 2) 12/03/2001 Pneumococcal Vaccine: 65+ Ye ars (1 of 1 - PCV) 12/03/2016 COVID-19 Vaccine (1 - 2023-2 5 season) 2024 Influenza Vaccine (#1) 2024 Alcohol/Substance Use Screening 05/19/2024 Health Care Proxy Review 05/19/2024 RSV Vaccine (60+ years old a nd patients) (1 - 1-dose 75+ series) 12/03/2026 Hepatitis B Vaccines Aged Out No long er eligible based on patient's age to complete this topic Insurance [facility] Care Teams Pharmaceutical Development Technician Relationship Specialty Start Date End Date Terrie Boyer MD [address] [place] [address] PCP - General 09/03/20
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
== END 2024-06-24 11:16 | disposition home or self-care (01) ==
LOC: HO.HOP 11:10
PROVIDERS: Visit Provider Clinical Nurse Specialist Psychiatric/Mental Health
DX: F33.41 Major depressive disorder, recurrent, in partial remission (principal); F42.2 Mixed obsessional thoughts and acts; F43.10 Post-traumatic stress disorder, unspecified; F40.01 Agoraphobia with panic disorder
CPT/HCPCS: 99214

== ENCOUNTER 2024-07-19 11:37 | Outpatient (AMB) | payer OTHER, SELFPAY ==
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
--- OUTSIDE RECORDS SUMMARY | 2024-07-19 13:51 | XMS_ITS | Clinical Summary ---
Author Organization [facility] Address [address] [place] [address] Care Team Providers Care Bruise Trimmer Name Role Phone Terrie Boyer MD Primary Care Provider [phone]- [phone] Allergies Active Allergy Reactions Criticality Noted Date [...] DTaP,Tdap,and Td Vaccines (1 - Tdap) 12/03/1973 Osteoporosis Screening 12/03/2001 Pneumococcal Vaccine: 50+ Ye ars (1 of 1 - PCV) 12/03/2001 Zoster Vaccines (1 of 2) 12/03/2001 COVID-19 Vaccine (1 - 2023-2 5 season) 2024 Influenza Vaccine (#1) 2024 Alcohol/Substance Use Screening 05/19/2024 Health Care Proxy Review 05/19/2024 RSV Vaccine (60+ years old a nd patients) (1 - 1-dose 75+ series) 12/03/2026 Hepatitis B Vaccines Aged Out No long er eligible based on patient's age to complete this topic Insurance [facility] Member Subscriber Plan / Payer (Ef fective 2020-Present) Name:Ibeth Chow Relation to Subscriber:Self Name:Ibeth Chow Payer ID:[id number] (NAIC) Type:Not on file Address: [place] [id number] Care Teams Bruise Trimmer Relationship Specialty Start Date End Date Terrie Boyer MD [address] [place] [address] PCP - General 09/03/20
--- OUTSIDE RECORDS SUMMARY | 2024-07-19 13:51 | XMS_ITS | Referral Summary ---
Author Organization [facility] Address [address] [place] [address] Care Team Providers Care Coordinator Volunteer Services Name Role Phone Terrie Boyer MD Primary Care Provider [phone]- [phone] Allergies Active Allergy Reactions Criticality Noted Date [...] Plan of Treatment Not on file Insurance [facility] MCR Care Teams Coordinator Volunteer Services Relationship Specialty Start Date End Date Terrie Boyer MD [address] [place] [address] PCP - General 09/03/20
== END 2024-07-19 11:37 | disposition home or self-care (01) ==
LOC: HO.HOP 11:37
PROVIDERS: Visit Provider Clinical Nurse Specialist Psychiatric/Mental Health
DX: F33.41 Major depressive disorder, recurrent, in partial remission (principal); F42.2 Mixed obsessional thoughts and acts; F43.10 Post-traumatic stress disorder, unspecified; F40.01 Agoraphobia with panic disorder
CPT/HCPCS: 98014

== ENCOUNTER 2024-08-24 10:33 | Outpatient (AMB) | payer OTHER, SELFPAY ==
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
--- OUTSIDE RECORDS SUMMARY | 2024-08-24 12:36 | XMS_ITS | Clinical Summary ---
Author Organization [facility] Address [address] [place] [address] Care Team Providers Care Wiring Mechanic Name Role Phone Terrie Boyer MD Primary Care Provider +1- [phone] Allergies Active Allergy Reactions Criticality Noted Date [...] Vaccine (1 - 2023-2 5 season) 2024 Alcohol/Substance Use Screening 05/19/2024 Health Care Proxy Review 05/19/2024 Influenza Vaccine (Season Ended) 2025 RSV Vaccine (60+ years old a nd patients) (1 - 1-dose 75+ series) 12/03/2026 Hepatitis B Vaccines Aged Out No long er eligible based on patient's age to complete this topic Insurance [facility] Member Subscriber Plan / Payer (Ef fective 2020-Present) Name:Ibeth Chow Relation to Subscriber:Self Name:Ibeth Chow Payer ID:[id number] (NAIC) Type:Not on file Address: [place] [phone] Care Teams Wiring Mechanic Relationship Specialty Start Date End Date Terrie Boyer MD [address] [place] [address] PCP - General 09/03/20
--- OUTSIDE RECORDS SUMMARY | 2024-08-24 12:36 | XMS_ITS | Referral Summary ---
Author Organization [facility] Address [address] [place] [address] Care Team Providers Care Frit Mixer Name Role Phone Terrie Boyer MD Primary Care Provider +1- [phone] Allergies Active Allergy Reactions Criticality Noted Date [...] Plan of Treatment Not on file Insurance [facility] MCR Care Teams Frit Mixer Relationship Specialty Start Date End Date Terrie Boyer MD [address] [place] [address] PCP - General 09/03/20
== END 2024-08-24 10:33 | disposition home or self-care (01) ==
LOC: HO.HOP 10:33
PROVIDERS: Visit Provider Clinical Nurse Specialist Psychiatric/Mental Health
DX: F33.41 Major depressive disorder, recurrent, in partial remission (principal); F42.2 Mixed obsessional thoughts and acts; F43.10 Post-traumatic stress disorder, unspecified; F40.01 Agoraphobia with panic disorder
CPT/HCPCS: 98014

== ENCOUNTER 2024-09-21 11:19 | Outpatient (AMB) | payer OTHER, SELFPAY ==
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
--- OUTSIDE RECORDS SUMMARY | 2024-09-21 13:08 | XMS_ITS | Clinical Summary ---
Author Organization [facility] Address [address] [place] [address] Care Team Providers Care Marine Fitter Name Role Phone Terrie Boyer MD Primary Care Provider +1- [phone] Allergies Active Allergy Reactions Criticality Noted Date [...] patient's age to complete this topic Insurance [facility] Member Subscriber Plan / Payer (Ef fective 2020-Present) Name:Ibeth Chow Relation to Subscriber:Self Name:Ibeth Chow Payer ID:[id number] (NAIC) Type:Not on file Address: [place] [id number] Care Teams Marine Fitter Relationship Specialty Start Date End Date Terrie Boyer MD [address] [place] [address] PCP - General 09/03/20
--- OUTSIDE RECORDS SUMMARY | 2024-09-21 13:08 | XMS_ITS | Referral Summary ---
Author Organization [facility] Address [address] [place] [address] Care Team Providers Care Assessment Technician Name Role Phone Terrie Boyer MD Primary Care Provider +1- [phone] Allergies Active Allergy Reactions Criticality Noted Date [...] Plan of Treatment Not on file Insurance [facility] MCR Care Teams Assessment Technician Relationship Specialty Start Date End Date Terrie Boyer MD [address] [place] [address] PCP - General 09/03/20
== END 2024-09-21 11:20 | disposition home or self-care (01) ==
LOC: HO.HOP 11:19
PROVIDERS: Visit Provider Clinical Nurse Specialist Psychiatric/Mental Health
DX: F33.41 Major depressive disorder, recurrent, in partial remission (principal); F42.2 Mixed obsessional thoughts and acts; F43.10 Post-traumatic stress disorder, unspecified; F40.01 Agoraphobia with panic disorder
CPT/HCPCS: 98012

== ENCOUNTER 2024-11-11 13:29 | Outpatient (AMB) | payer OTHER, SELFPAY ==
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
--- OUTSIDE RECORDS SUMMARY | 2024-11-11 16:17 | XMS_ITS | Referral Summary ---
Author Organization [facility] Address [address] [place] [address] Care Team Providers Care Harbormaster Name Role Phone Terrie Boyer MD Primary Care Provider +1- [phone] Allergies Active Allergy Reactions Criticality Noted Date [...] 70 09/03/2020 7:44 AM EDT Temperature 37.6 C (99.7 F) 09/03/2020 5:08 AM EDT Respiratory Rate 16 09/03/2020 7:44 AM EDT Oxygen Saturation 98% 09/03/2020 7:44 AM EDT Inhaled Oxygen Concentration - - Weight - - Height - - Body Mass Index - - Plan of Treatment Not on file Insurance [facility] MCR Care Teams Harbormaster Relationship Specialty Start Date End Date Terrie Boyer MD [address] [place] [address] PCP - General 09/03/20
== END 2024-11-11 13:30 | disposition home or self-care (01) ==
LOC: HO.HOP 13:29
PROVIDERS: Visit Provider Clinical Nurse Specialist Psychiatric/Mental Health
DX: F42.2 Mixed obsessional thoughts and acts (principal); F40.01 Agoraphobia with panic disorder; F43.11 Post-traumatic stress disorder, acute; F33.41 Major depressive disorder, recurrent, in partial remission
CPT/HCPCS: 99214

== ENCOUNTER 2024-12-06 11:53 | Outpatient (AMB) | payer OTHER, SELFPAY ==
--- OUTSIDE RECORDS SUMMARY | 2024-12-06 12:52 | XMS_ITS | Clinical Summary ---
Author Organization [facility] Address [address] [place] [phone] Phone Care Team Providers Care Operations Officer Afloat Name Role Phone Blank Riggins MD Primary Care Provider Allergies Active Allergy Reactions Criticality Noted Date Comments Penicillin Rash Low 12/23/2016 Prednisone 05/13/2017 Tramadol Rash Low 06/09/2018 Medications amitriptyline (ELAVIL) 50 MG tablet 1 tablet at bedtime Active metoclopramide HCl (REGLAN) 10 MG tablet 1 tablet by mouth daily PRN for nausea 2 Active modafinil (PROVIGIL) 200 MG tablet 1 tablet in morning and one at noon 2 Active traZODone (DESYREL) 100 MG tablet Take 100 mg by mouth nightly at bedtime. 1-2 tablets nightly 2 Active ipratropium-alb uterol (COMBIVENT RESPIMAT) 20-100 mcg/actuation Mist 1 puff 4 times/day 2 Active QUEtiapine (SEROQUEL) 25 MG tablet Take 25 mg by mouth 3 (three) times a day. 50mg for PM dose 2 Active estradiol (CLIMARA) 0.025 mg/24 hrIndications:P ostmenopausal hormone therapy [The details of the medication are not available because there are pending changes by a home health clinician.] 12 patch 1 9 Active Additional Information Patient not taking.Reason: Therapy complete, Informant: Self, Reported on 08/17/2021 ciclopirox (PENLAC) 8 % solutionIndicat ions:Onychomyco sis [The details of the medication are not available because there are pending changes by a home health clinician.] 6.6 mL 3 0 Active Additional Information Patient not taking.Reason: Therapy complete, Informant: Self, Reported on 08/17/2021 fentaNYL (DURAGESIC) 25 mcg/hr Place 1 patch onto the skin every third day. 2 Active oxyCODONE-aceta minophen (PERCOCET) 5-325 mg per tablet Take 0.5 tablets by mouth 3 (three) times a day as needed for pain (specific location in comments) (R hip). 2 Active levothyroxine (SYNTHROID, LEVOTHROID) 100 MCG tablet Take 100 mcg by mouth every morning. 2 Active gabapentin (NEURONTIN) 100 MG capsule Take 100 mg by mouth 3 (three) times a day. 2 Active omeprazole (PRILOSEC) 20 mg TbEC Take 40 mg by mouth daily. 2 Active hydrOXYzine (ATARAX) 25 MG tablet Take 25 mg by mouth 2 (two) times a day. 2 Active DULoxetine (CYMBALTA) 60 MG capsule Take 60 mg by mouth 2 (two) times a day. 2 Active clonazePAM (KLONOPIN) 1 MG tablet Take 1 mg by mouth as directed. 0.5 tablet in AM, 1.5 tablet at night 2 Active docusate sodium (COLACE) 100 MG capsule Take 100 mg by mouth 2 (two) times a day as needed for constipation. 2 Active ibuprofen (ADVIL,MOTRIN) 600 MG tablet Take 600 mg by mouth every 8 (eight) hours as needed for pain (specific location in comments) (R hip and multijoint pain). 2 Active Active Problems Problem Noted Date Diagnosed Date Onychomycosis 11/09/2019 Hormone replacement therapy 06/09/2018 Assessment & Plan (06/09/2018 1:22 PM EST): Ibeth has significant anxiety around stopping her patch. We discussed that most often, taper can be accomplished without noticeable effects. Additionally, anxiety about taper is not a reason to continue therapy. Instructions given for tapering patch, rx refilled for 6 months with goal of cessation of therapy after that time. Pain in joint of right shoulder 05/14/2017 Closed nondisplaced fracture of greater tuberosity of right humerus 05/14/2017 Family History Medical History Relation Comments Alcohol abuse Father Cancer Maternal Grandfather unsure what type Relation Status Comments Father Maternal Grandfather Son Social History Tobacco Use Types Packs/Day Years Used Date Smoking Tobacco: Former Cigarettes Q uit: 2009 Smokeless Tobacco: Never Alcohol Use Standard Drinks/Week Comments No 0 (1 standard drink = 0.6 oz pur e alcohol) Education Answer Date Recorded Are you interested in more education? Not on alison e 09/13/2022 Are you concerned about learning? Not on file 09/13/2022 No 09/13/2022 No 09/13/2022 Digital Access Answer Date Recorded No 10/14/2022 No 10/14/2022 Reliable internet access at home? Not on file 10/14/2022 Device with a working camera? Not on file Comments No Sex and Gender Information Value Date Recorded Sex Assigned at Not on file Legal Sex Female 10:00 PM EDT Gender Identity Not on file Sexual Orientation Not on file Last Filed Vital Signs Vital Sign Reading Time Taken Comments Blood Pressure 124/62 09/14/2021 9:39 AM EDT Pulse 104 09/14/2021 9:39 AM EDT Temperature 36.3 C (97.3 F) 09/14/2021 9:39 AM EDT Respiratory Rate 16 09/14/2021 9:39 AM EDT Oxygen Saturation 95% 09/14/2021 9:39 AM EDT Inhaled Oxygen Concentration - - Weight 59.4 kg (130 lb 15.3 oz) 11/09/2019 8:04 AM EDT Height 154.9 cm (5' 0.98 ) 11/09/2019 8:04 AM ED T Body Mass Index 24.76 11/09/2019 8:04 AM EDT Plan of Treatment Health Maintenance Due Date Last Done Comments Adult Td,Tdap Booster 1951 LIPID PANEL 1951 TSH LEVEL 1951 DEPRESSION SCREENING 1963 SMOKING Hx and SMOKELESS TOB ACCO SCREENING 12/03/1964 HEPATITIS C SCREENING 12/03/1969 MAMMOGRAM 1991 COLOGUARD 12/03/1996 COLONOSCOPY 12/03/1996 COLORECTAL CANCER SCREENING 12/03/1996 FIT TEST 12/03/1996 FOBT 12/03/1996 SIGMOIDOSCOPY 12/03/1996 VIRTUAL COLONOSCOPY 12/03/1996 PNEUMOCOCCAL VACCINES (50+ y ears) (1 of 1 - PCV) 12/03/2001 ZOSTER VACCINES (1 of 2) 12/03/2001 OSTEOPOROSIS SCREENING INITI AL (ONE-TIME) 12/03/2016 COVID-19 VACCINE ( - 2023-2 5 season) 2024 RSV VACCINE (1 - 1-dose 75+ series) 12/03/2026 HEPATITIS A VACCINES Aged Out No long er eligible based on patient's age to complete this topic HIB VACCINES Aged Out No longer eligi ble based on patient's age to complete this topic MENINGOCOCCAL VACCINES (ACWY) Aged Out No longer eligible based on patient's age to complete this topic MENINGOCOCCAL VACCINES (B) Aged Out N o longer eligible based on patient's age to complete this topic Medical Devices Not on file Insurance MEDICARE REPLACEMENT MEDICARE PART A & B MEDICARE REPLACEMENT MEDICARE PART A & B MEDICARE REPLACEMENT MEDICARE PART A & B MEDICARE REPLACEMENT MEDICARE PART A & B MEDICARE REPLACEMENT MEDICARE PART A & B MEDICARE REPLACEMENT MEDICARE PART A & B MEDICARE REPLACEMENT MEDICARE PART A & B MEDICARE REPLACEMENT MEDICARE PART A & B MEDICARE REPLACEMENT [place] [id number] MEDICARE PART A & B Care Teams Operations Officer Afloat Relationship Specialty Start Date End Date Blank Riggins MD [address] [place] [id number] [email or web address] PCP - General Family Medicine 07/27/21 Additional Source Comments The information contained in this document represents components of the legal health record. It is not the complete legal health record.[facility]
--- OUTSIDE RECORDS SUMMARY | 2024-12-06 12:52 | XMS_ITS | Referral Summary ---
Author Organization [facility] Address [address] [place] [address] Care Team Providers Care Lowerator Operator Name Role Phone Terrie Boyer MD Primary Care Provider +1- [phone] Allergies Active Allergy Reactions Criticality Noted Date [...] Plan of Treatment Not on file Insurance [facility] MCR Care Teams Lowerator Operator Relationship Specialty Start Date End Date Terrie Boyer MD [address] [place] [address] PCP - General 09/03/20
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
== END 2024-12-06 11:57 | disposition home or self-care (01) ==
LOC: HO.HOP 11:53
PROVIDERS: Visit Provider Clinical Nurse Specialist Psychiatric/Mental Health
DX: F42.2 Mixed obsessional thoughts and acts (principal); F40.01 Agoraphobia with panic disorder; F43.10 Post-traumatic stress disorder, unspecified; F33.41 Major depressive disorder, recurrent, in partial remission
CPT/HCPCS: 99213

== ENCOUNTER 2024-12-27 13:20 | Outpatient (AMB) | payer OTHER, SELFPAY ==
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
--- OUTSIDE RECORDS SUMMARY | 2024-12-27 13:30 | XMS_ITS | Referral Summary ---
Author Organization [facility] Address [address] [place] [address] Care Team Providers Care Fish Packer Name Role Phone Terrie Boyer MD Primary Care Provider [phone] Allergies Active Allergy Reactions Criticality Noted Date [...] Plan of Treatment Not on file Insurance [facility] MCR Care Teams Fish Packer Relationship Specialty Start Date End Date Terrie Boyer MD [address] [place] [address] PCP - General 09/03/20
--- OUTSIDE RECORDS SUMMARY | 2024-12-27 13:30 | XMS_ITS | Clinical Summary ---
Author Organization [facility] Address [address] [place] [address] Care Team Providers Care Senior Technical Editor Name Role Phone Jared Urbina MD Primary Care Provider [phone] Social History Tobacco Use Types Packs/Day Years Used Date Smoking Tobacco: Never Assessed Comments Unknown Sex and Gender Information Value Date Recorded Sex Assigned at Not on file Legal Sex Female 18:32 EST Gender Identity Not on file Sexual Orientation Not on file Plan of Treatment Health Maintenance Due Date Last Done Comments Hepatitis C Screen 1950 Fall Risk Screening 12/03/2016 COVID-19 Vaccine ( season) 2024 RSV Immunization ( o r 60+ Years) (1 - 1-dose 75+ series) 12/03/2026 Care Teams Senior Technical Editor Relationship Specialty Start Date End Date Jared Urbina MD PCP - General 03/31/15
--- OUTSIDE RECORDS SUMMARY | 2024-12-27 13:30 | XMS_ITS | Clinical Summary ---
Author Organization [facility] Address [address] [place] [phone] Phone Care Team Providers Care Manager Culinary Name Role Phone Blank Riggins MD Primary [...] MEDICARE PART A & B MEDICARE REPLACEMENT [place] [id number] MEDICARE PART A & B Care Teams Manager Culinary Relationship Specialty Start Date End Date Blank Riggins MD [address] [place] [id number] [email or web address] PCP - General Family Medicine 07/27/21 Additional Source Comments The information contained in this document represents components of the legal health record. It is not the complete legal health record.[facility]
== END 2024-12-27 13:21 | disposition home or self-care (01) ==
LOC: HO.HOP 13:20
PROVIDERS: Visit Provider Clinical Nurse Specialist Psychiatric/Mental Health
DX: F42.2 Mixed obsessional thoughts and acts (principal); F40.01 Agoraphobia with panic disorder; F43.10 Post-traumatic stress disorder, unspecified; F33.41 Major depressive disorder, recurrent, in partial remission
CPT/HCPCS: 98014

== ENCOUNTER 2025-02-08 11:20 | Outpatient (AMB) | payer OTHER, SELFPAY ==
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
--- OUTSIDE RECORDS SUMMARY | 2025-02-08 14:11 | XMS_ITS | Encounter Summary ---
Author Organization [facility] Address [address] [place] [address] [place] [address] Phone Care Team Providers Care Coin Machine Servicer Repairer Name Role Phone Nilda Munson MD Primary Care Provider [phone] Jose Rob CNP Primary Care Provider Nilda Munson MD Primary Care Provider [phone] Unknown, Unknown Primary Care Provider Kristal Powell DO Primary Care Provider [phone] Unknown, Unknown Primary Care Provider Blank Yeh MD Primary Care Provider [phone] Encounter Details Date Type Department Care Team (Late st Contact Info) Description 05/22/2017 Ancillary Orders Virtual Department [address] [place] [address] Nilda Munson MD [address] [place] [address] [address] [place] [id number] [email or web address] Post-menopausal Social History Tobacco Use Types Packs/Day Years Used Date Smoking Tobacco: Former Cigarettes Q uit: 2009 Smokeless Tobacco: Never Alcohol Use Standard Drinks/Week Comments Yes 0 (1 standard drink = 0.6 oz pur e alcohol) Comments Unknown Sex and Gender Information Value Date Recorded Sex Assigned at Not on file Legal Sex Female 10:00 PM EDT Gender Identity Not on file Sexual Orientation Not on file documented as of this encounter Plan of Treatment Not on file documented as of this encounter Visit Diagnoses Diagnosis Post-menopausal Asymptomatic postmenopausal status (age-related) (natural) documented in this encounter Additional Health Concerns Infection Onset Date Last Indicated Resolved Time MRSA Comment:Import to add expiration date of 08/04/2021 per Infection Control as part of historical infection status reconciliation 03/08/2008 03/08/2008 08/05/19 22 1:22 AM EDT documented as of this encounter Care Teams Coin Machine Servicer Repairer Relationship Specialty Start Date End Date Nilda Munson MD [email or web address] PCP - General 03/06/17 12/23/17 Jose Rob CNP [address] [place] [address], [address] [place] [address] [email or web address] PCP - General Family Medicine 12/24/17 01/25/18 Nilda Munson MD [email or web address] PCP - General Family Medicine 01/26/18 03/24/18 Unknown, Unknown, [address] [place] [address], [address] [place] [address] PCP - General 03/25/18 04/01/18 Kristal Loza DO [address] [place] [address] [email or web address] PCP - General Family Medicine 04/02/18 08/31/19 Unknown, Unknown, [address] [place] [address], [address] [place] [address] PCP - General 09/01/19 07/26/21 Blank Riggins MD [address] [place] [address] [email or web address] PCP - General Family Medicine 07/27/21 documented as of this encounter Additional Source Comments The information contained in this document represents components of the legal health record. It is not the complete legal health record.[facility]
--- OUTSIDE RECORDS SUMMARY | 2025-02-08 14:11 | XMS_ITS | Encounter Summary ---
Author Organization [facility] Address [address] [place] [address] [place] [address] Phone Care Team Providers Care Atomic Welder Name Role Phone Nilda Munson MD Primary Care Provider [phone] Jose Rob CNP Primary Care Provider Nilda Munson MD Primary Care Provider [phone] Unknown, Unknown Primary Care Provider Kristal Powell DO Primary Care Provider [phone] Unknown, Unknown Primary Care Provider Blank Yeh MD Primary Care Provider [phone] Encounter Details Date Type Department Care Team (Late st Contact Info) Description 08/07/2017 Ancillary Orders [facility] Medicine [address] [place] [address] Keturah Marquez PA-C [address] [place] [address] [facility] [place] [address] [email or web address] Social History Tobacco Use Types Packs/Day Years [...] documented as of this encounter Visit Diagnoses Not on filedocumented in this encounter Additional Health Concerns Infection Onset Date Last Indicated Resolved Time MRSA Comment:Import to add expiration date of 08/04/2021 per Infection Control as part of historical infection status reconciliation 03/08/2008 03/08/2008 08/05/19 22 1:22 AM EDT documented as of this encounter Care Teams Atomic Welder Relationship Specialty Start Date End Date Nilda Munson MD [email or web address] PCP - General 03/06/17 12/23/17 Jose Rob CNP [address] [place] [address], [address] [place] [address] [email or web address] PCP - General Family Medicine 12/24/17 01/25/18 Nilda Munson MD [email or web address] PCP - General Family Medicine 01/26/18 03/24/18 Unknown, Unknown, [address] [place] [address], [address] [place] [address] PCP - General 03/25/18 04/01/18 Kristal Loza DO [address] [place] [address] [email or web address] PCP - General Family Medicine 04/02/18 08/31/19 Unknown, Unknown, [address] [place] [address], [address] [place] [address] PCP - General 09/01/19 07/26/21 Blank Riggins MD [address] [place] [address] [email or web address] PCP - General Family Medicine 07/27/21 documented as of this encounter Additional Source Comments The information contained in this document represents components of the legal health record. It is not the complete legal health record.[facility]
--- OUTSIDE RECORDS SUMMARY | 2025-02-08 14:11 | XMS_ITS | Clinical Summary ---
Author Organization [facility] Address [address] [place] [address] Phone Care Team Providers Care Shipping And Receiving Material Handler Name Role Phone Blank Riggins MD Primary [...] 12/03/2001 OSTEOPOROSIS SCREENING INITI AL (ONE-TIME) 12/03/2016 INFLUENZA VACCINE (#1) 2024 COVID-19 VACCINE (1 - 2023-2 5 season) 2025 RSV VACCINE (1 - 1-dose 75+ series) [...] MEDICARE REPLACEMENT MEDICARE PART A & [place] [address] [place] [address] MEDICARE REPLACEMENT MEDICARE PART A & B MEDICARE REPLACEMENT MEDICARE PART A & B MEDICARE REPLACEMENT MEDICARE PART A & B MEDICARE REPLACEMENT MEDICARE PART A & B MEDICARE REPLACEMENT MEDICARE PART A & B MEDICARE REPLACEMENT MEDICARE PART A & B MEDICARE REPLACEMENT MEDICARE PART A & B Care Teams Shipping And Receiving Material Handler Relationship Specialty Start Date End Date Blank Riggins MD [address] [place] [address] [email or web address] PCP - General Family Medicine 07/27/21 Additional Source Comments The information contained in this document represents components of the legal health record. It is not the complete legal health record.[facility]
--- OUTSIDE RECORDS SUMMARY | 2025-02-08 14:11 | XMS_ITS | Encounter Summary ---
Author Organization [facility] Address [address] [place] [address] Phone Care Team Providers Care Powerplant Operator Name Role Phone Nilda Munson MD Primary Care Provider [phone] Jose Rob CNP Primary Care Provider Nilda Munson MD Primary Care Provider [phone] Unknown, Unknown Primary Care Provider Kristal Powell DO Primary Care Provider [phone] Unknown, Unknown Primary Care Provider Blank Yeh MD Primary Care Provider [phone] Encounter Details Date Type Department Care Team (Late st Contact Info) Description 08/07/2017 Ancillary Orders [address] [phone] Keturah Marquez PAYaron [address] [place] [address] [facility] [place] [address] [email or web address] Social History Tobacco Use Types Packs/Day Years [...] documented as of this encounter Care Teams Powerplant Operator Relationship Specialty Start Date End Date Nilda Munson MD [email or web address] PCP - General 03/06/17 12/23/17 Jose Rob CNP [address] [place] [address], [address] [place] [address] [email or web address] PCP - General Family Medicine 12/24/17 01/25/18 Nilda Munson MD [email or web address] PCP - General Family Medicine 01/26/18 03/24/18 Unknown, Unknown, [address] [place] [address], [address] [place] [address] PCP - General 03/25/18 04/01/18 Kristal Loza DO [address] [place] [address] [email or web address] PCP - General Family Medicine 04/02/18 08/31/19 Unknown, Unknown, [address] [place] [address], [address] [place] [address] PCP - General 09/01/19 07/26/21 Blank Riggins MD [address] [place] [address] [email or web address] PCP - General Family Medicine 07/27/21 documented as of this encounter Additional Source Comments The information contained in this document represents components of the legal health record. It is not the complete legal health record.[facility]
--- OUTSIDE RECORDS SUMMARY | 2025-02-08 14:11 | XMS_ITS | Encounter Summary ---
Author Organization [facility] Address [address] [place] [address] [place] [address] Phone Care Team Providers Care Product Support Representative Name Role Phone Nilda Munson MD Primary Care Provider [phone] Unknown, Unknown Primary Care Provider Kristal Powell DO Primary Care Provider [phone] Unknown, Unknown Primary Care Provider Blank Yeh MD Primary Care Provider [phone] Encounter Details Date Type Department Care Team (Late st Contact Info) Description 02/05/2018 Transcribe Orders [facility] [address] [place] [address] Maribel Arroyo PA [address] [place] [address] [email or web address] Social History Tobacco Use Types Packs/Day Years [...] documented as of this encounter Care Teams Product Support Representative Relationship Specialty Start Date End Date Nilda Munson MD [email or web address] PCP - General Family Medicine 01/26/18 03/24/18 Unknown, Unknown, PCP - General 03/25/18 04/01/18 Kristal Loza DO [address] [place] [address] [email or web address] PCP - General Family Medicine 04/02/18 08/31/19 Unknown, Unknown, PCP - General 09/01/19 07/26/21 Blank Riggins MD [address] [place] [address] [email or web address] PCP - General Family Medicine 07/27/21 documented as of this encounter Additional Source Comments The information contained in this document represents components of the legal health record. It is not the complete legal health record.[facility]
--- OUTSIDE RECORDS SUMMARY | 2025-02-08 14:11 | XMS_ITS | Clinical Summary ---
Author Organization [facility] Address [address] [place] [address] Care Team Providers Care Senior Linux Engineer Name Role Phone Jared Urbina MD Primary Care Provider [phone] Social History Tobacco Use Types Packs/Day Years [...] 1-dose 75+ series) 12/03/2026 Care Teams Senior Linux Engineer Relationship Specialty Start Date End Date Jared Urbina MD PCP - General 03/31/15
--- OUTSIDE RECORDS SUMMARY | 2025-02-08 14:11 | XMS_ITS | Encounter Summary ---
Author Organization [facility] Address [address] [place] [address] [place] [address] Phone Care Team Providers Care Shank Inspector Name Role Phone Nilda Munson MD Primary Care Provider [phone] Jose Rob CNP Primary Care Provider Nilda Munson MD Primary Care Provider [phone] Unknown, Unknown Primary Care Provider Kristal Powell DO Primary Care Provider [phone] Unknown, Unknown Primary Care Provider Blank Yeh MD Primary Care Provider [phone] Encounter Details Date Type Department Care Team (Late st Contact Info) Description 03/08/2017 Ancillary Orders [facility] [address] [place] [address] Gretchen Osuna MD [address] [place] [address], [address] [place] [address] [email or web address] Visit for screening mammogram Social History Tobacco Use Types Packs/Day Years Used Date Smoking Tobacco: Never Assessed Comments Unknown Sex and Gender Information Value Date Recorded Sex Assigned at Not on file Legal Sex Female 10:00 PM EDT Gender Identity Not on file Sexual Orientation Not on file documented as of this encounter Plan of Treatment Not on file documented as of this encounter Visit Diagnoses Diagnosis Visit for screening mammogram documented in this encounter Additional Health Concerns Infection Onset Date Last Indicated Resolved Time MRSA Comment:Import to add expiration date of 08/04/2021 per Infection Control as part of historical infection status reconciliation 03/08/2008 03/08/2008 08/05/19 22 1:22 AM EDT documented as of this encounter Care Teams Shank Inspector Relationship Specialty Start Date End Date Nilda Munson MD [email or web address] PCP - General 03/06/17 12/23/17 Jose Rob, MEDICAL RECORDS DIRECTOR [address] [place] [address], [address] [place] [address] [email or web address] PCP - General Family Medicine 12/24/17 01/25/18 Nilda Munson MD [email or web address] PCP - General Family Medicine 01/26/18 03/24/18 Unknown, Unknown, [address] [place] [address], [address] [place] [address] PCP - General 03/25/18 04/01/18 Kristal Loza DO [address] [place] [address] [email or web address] PCP - General Family Medicine 04/02/18 08/31/19 Unknown, Unknown, [address] [place] [address], [address] [place] [address] PCP - General 09/01/19 07/26/21 Blank Riggins MD [address] [place] [address] [email or web address] PCP - General Family Medicine 07/27/21 documented as of this encounter Additional Source Comments The information contained in this document represents components of the legal health record. It is not the complete legal health record.[facility]
--- OUTSIDE RECORDS SUMMARY | 2025-02-08 14:11 | XMS_ITS | Encounter Summary ---
Author Organization [facility] Address [address] [place] [address] [place] [address] Phone Care Team Providers Care Chemical Inspector Name Role Phone Nilda Munson MD Primary Care Provider [phone] Jose Rob CNP Primary Care Provider Nilda Munson MD Primary Care Provider [phone] Unknown, Unknown Primary Care Provider Kristal Powell DO Primary Care Provider [phone] Unknown, Unknown Primary Care Provider Blank Yeh MD Primary Care Provider [phone] Encounter Details Date Type Department Care Team (Late st Contact Info) Description 08/07/2017 Ancillary Orders [address] [address] Keturah Marquez PA-C [address] [place] [address] Orthopedics & Sports Medicine, [facility] [place] [address] [email or web address] Right shoulder pain, unspecified chronicity Social History Tobacco Use Types Packs/Day Years [...] on file documented as of this encounter Results * XR SHOULDER 2 VIEWS (RIGHT) (08/11/2017 8:32 AM EDT) Narrative Darlene Estevez - 08/11/2017 8:32 AM EDT This image report has been auto-finalized and has not been read by a Radiologist. Interpretation has been included in the provider encounter note for this date of service. Keturah Marquez PA-C IMG XR UPPER EXTREMITY F inal Result documented in this encounter Visit Diagnoses Diagnosis Right shoulder pain, unspecified chronicity Right shoulder pain, unspecified chronicity documented in this encounter Additional Health Concerns Infection Onset Date Last Indicated Resolved Time MRSA Comment:Import to add expiration date of 08/04/2021 per Infection Control as part of historical infection status reconciliation 03/08/2008 03/08/2008 08/05/19 22 1:22 AM EDT documented as of this encounter Care Teams Chemical Inspector Relationship Specialty Start Date End Date Nilda Munson MD [email or web address] PCP - General 03/06/17 12/23/17 Jose Rob, OMAR [address] [place] [address], [address] [place], [place] [id number] [email or web address] PCP - General Family Medicine 12/24/17 01/25/18 Nilda Munson MD [email or web address] PCP - General Family Medicine 01/26/18 03/24/18 Unknown, Radha, [address] [place] [address], [address] [place] [address] PCP - General 03/25/18 04/01/18 Kristal Loza DO [address] [place] [address] [email or web address] PCP - General Family Medicine 04/02/18 08/31/19 Unknown, Unknown, [address] [facility], [address] [place] [address] PCP - General 09/01/19 07/26/21 Blank [place]iggins [place] [address] [email or web address] PCP - General Family Medicine 07/27/21 documented as of this encounter Additional Source Comments The information contained in this document represents components of the legal health record. It is not the complete legal health record.[facility]
--- OUTSIDE RECORDS SUMMARY | 2025-02-08 14:11 | XMS_ITS | Clinical Summary ---
Author Organization [facility] Address [address] [place] [address] Care Team Providers Care Senior Oracle Soa Developer Name Role Phone Terrie Boyer MD Primary Care Provider [phone] Allergies Active Allergy Reactions Criticality Noted Date [...] 12/03/2001 Zoster Vaccines (1 of 2) 12/03/2001 Alcohol/Substance Use Screening 05/19/2024 Health Care Proxy Review 05/19/2024 COVID-19 Vaccine (1 - 2023-2 5 season) 2025 Influenza Vaccine (#1) 2025 RSV Vaccine (60+ years old a nd patients) (1 - 1-dose 75+ series) 12/03/2026 Hepatitis B Vaccines Aged Out No long er eligible based on patient's age to complete this topic Insurance [facility] Member Subscriber Plan / Payer (Ef fective 2020-Present) Name:Ibeth Chow Relation to Subscriber:Self Name:Ibeth Chow Payer ID:[id number] (NAIC) Type:Not on file Address: [place] [id number] Care Teams Senior Oracle Soa Developer Relationship Specialty Start Date End Date Terrie Boyer MD [address] [place] [address] PCP - General 09/03/20
--- OUTSIDE RECORDS SUMMARY | 2025-02-08 14:11 | XMS_ITS | Encounter Summary ---
Author Organization [facility] Address [address] [place] [address] [place] [address] Phone Care Team Providers Care Identification Officer Name Role Phone Nilda Munson MD Primary Care Provider [phone] Jose Rob CNP Primary Care Provider Nilda Munson MD Primary Care Provider [phone] Unknown, Unknown Primary Care Provider Kristal Powell DO Primary Care Provider [phone] Unknown, Unknown Primary Care Provider Blank Yeh MD Primary Care Provider [phone] Encounter Details Date Type Department Care Team (Late st Contact Info) Description 08/07/2017 Ancillary Orders [facility] Orthopedics & Sports Medicine [address] [place] [address] Keturah Marquez PA-C [address] [place] [address] [facility] [place] [address] [email or web address] Social History Tobacco Use Types Packs/Day Years [...] documented as of this encounter Care Teams Identification Officer Relationship Specialty Start Date End Date Nilda Munson MD [email or web address] PCP - General 03/06/17 12/23/17 Jose Rob CNP [address] [place] [address], [address] [place] [address] [email or web address] PCP - General Family Medicine 12/24/17 01/25/18 Nilda Munson MD [email or web address] PCP - General Family Medicine 01/26/18 03/24/18 Unknown, Unknown, [address] [place] [address], [address] [place] [address] PCP - General 03/25/18 04/01/18 Kristal Loza DO [address] [place] [address] [email or web address] PCP - General Family Medicine 04/02/18 08/31/19 Unknown, Unknown, [address] [place] [address], [address] [place] [address] PCP - General 09/01/19 07/26/21 Blank Riggins MD [address] [place] [address] [email or web address] PCP - General Family Medicine 07/27/21 documented as of this encounter Additional Source Comments The information contained in this document represents components of the legal health record. It is not the complete legal health record.[facility]
== END 2025-02-08 11:20 | disposition home or self-care (01) ==
LOC: HO.HOP 11:20
PROVIDERS: Visit Provider Clinical Nurse Specialist Psychiatric/Mental Health
DX: F42.2 Mixed obsessional thoughts and acts (principal); F40.01 Agoraphobia with panic disorder; F43.10 Post-traumatic stress disorder, unspecified; F33.41 Major depressive disorder, recurrent, in partial remission
CPT/HCPCS: 90791

== ENCOUNTER 2025-03-15 13:48 | Outpatient (AMB) | payer OTHER, SELFPAY ==
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
--- OUTSIDE RECORDS SUMMARY | 2025-03-15 18:00 | XMS_ITS | Clinical Summary ---
Author Organization [facility] Address [address] [place] [address] Care Team Providers Care Drink Box Mechanic Name Role Phone Terrie Boyer MD Primary Care Provider [phone] Allergies Active Allergy Reactions Criticality Noted Date [...] Tdap) 12/03/1973 Mammogram 1991 Osteoporosis Screening 12/03/2001 Pneumococcal Vaccine: 50+ Ye ars (1 of 1 - PCV) 12/03/2001 Zoster Vaccines (1 of 2) 12/03/2001 Alcohol/Substance Use Screening 05/19/2024 Health Care Proxy Review 05/19/2024 COVID-19 Vaccine (1 - 2024-2 6 season) 2025 Influenza Vaccine (#1) 2025 RSV Vaccine (60+ years old a nd patients) (1 - 1-dose 75+ series) 12/03/2026 Hepatitis B Vaccines Aged Out No long er eligible based on patient's age to complete this topic Insurance [facility] Care Teams Drink Box Mechanic Relationship Specialty Start Date End Date Terrie Boyer MD [address] [place] [address] PCP - General 09/03/20
--- OUTSIDE RECORDS SUMMARY | 2025-03-15 18:00 | XMS_ITS | Clinical Summary ---
Author Organization [facility] Address [address] [place] [address] Care Team Providers Care Assembler Chassis Name Role Phone Jared Urbina MD Primary Care Provider [phone] Social History Tobacco Use Types Packs/Day Years [...] - 1-dose 75+ series) 12/03/2026 Care Teams Assembler Chassis Relationship Specialty Start Date End Date Jared Urbina MD PCP - General 03/31/15
== END 2025-03-15 13:49 | disposition home or self-care (01) ==
LOC: HO.HOP 13:48
PROVIDERS: Visit Provider Clinical Nurse Specialist Psychiatric/Mental Health
DX: F42.2 Mixed obsessional thoughts and acts (principal); F40.01 Agoraphobia with panic disorder; F43.10 Post-traumatic stress disorder, unspecified; F33.41 Major depressive disorder, recurrent, in partial remission
CPT/HCPCS: 99213

== ENCOUNTER 2025-05-09 09:48 | Outpatient (AMB) | payer OTHER, SELFPAY ==
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
--- OUTSIDE RECORDS SUMMARY | 2025-05-09 11:30 | XMS_ITS | Encounter Summary ---
Author Organization [facility] Address [address] [place] [address] Phone Care Team Providers Care Plate Put In Worker Name Role Phone Nilda Munson MD Primary Care Provider [phone] Jose Rob CNP Primary Care Provider Nilda Munson MD Primary Care Provider [phone] Unknown, Unknown Primary Care Provider Kristal Powell DO Primary Care Provider [phone] Unknown, Unknown Primary Care Provider Blank Yeh MD Primary Care Provider [phone] Encounter Details Date Type Department Care Team (Late st Contact Info) Description 08/07/2017 Ancillary Orders [facility] [address] [place] [address] Keturah Marquez PA-C [address] [place] [address] Orthopedics & Sports Medicine, [facility] [place] [address] [email or web address] Social History Tobacco Use Types Packs/Day Years [...] documented as of this encounter Care Teams Plate Put In Worker Relationship Specialty Start Date End Date Nilda Munson MD [email or web address] PCP - General 03/06/17 12/23/17 Jose Rob CNP [address] [place] [address], [address] [place] [address] [email or web address] PCP - General Family Medicine 12/24/17 01/25/18 Nilda Munson MD [email or web address] PCP - General Family Medicine 01/26/18 03/24/18 Unknown, Unknown, [address] [place] [address], [address] [place] [address] PCP - General 03/25/18 04/01/18 Kristal Loza DO [address] [place] [address] [email or web address] PCP - General Family Medicine 04/02/18 08/31/19 Unknown, Unknown, [address] [place] [address], [address] [place] [address] PCP - General 09/01/19 07/26/21 Blank Riggins MD [address] [place] [address] [email or web address] PCP - General Family Medicine 07/27/21 documented as of this encounter Additional Source Comments The information contained in this document represents components of the legal health record. It is not the complete legal health record.[facility]
--- OUTSIDE RECORDS SUMMARY | 2025-05-09 11:30 | XMS_ITS | Encounter Summary ---
Author Organization [facility] Address [address] [place] [address] Phone Care Team Providers Care Production Dispatcher Name Role Phone Nilda Munson MD Primary Care Provider [phone] Jose Rob CNP Primary Care Provider Nilda Munson MD Primary Care Provider [phone] Unknown, Unknown Primary Care Provider Kristal Powell DO Primary Care Provider [phone] Unknown, Unknown Primary Care Provider Blank Yeh MD Primary Care Provider [phone] Encounter Details Date Type Department Care Team (Late st Contact Info) Description 08/07/2017 Ancillary Orders [address] [id number] Keturah Marquez PAYaron [address] [place] [address] [facility] [place] [address] [email or web address] Social History Tobacco Use Types Packs/Day Years [...] documented as of this encounter Care Teams Production Dispatcher Relationship Specialty Start Date End Date Nilda Munson MD [email or web address] PCP - General 03/06/17 12/23/17 Jose Rob CNP [address] [place] [address], [address] [place] [address] [email or web address] PCP - General Family Medicine 12/24/17 01/25/18 Nilda Munson MD [email or web address] PCP - General Family Medicine 01/26/18 03/24/18 Unknown, Unknown, [address] [place] [address], [address] [place] [address] PCP - General 03/25/18 04/01/18 Kristal Loza DO [address] [place] [address] [email or web address] PCP - General Family Medicine 04/02/18 08/31/19 Unknown, Unknown, [address] [place] [address], [address] [place] [id number] PCP - General 09/01/19 07/26/21 Blank Riggins MD [address] [place] [address] [email or web address] PCP - General Family Medicine 07/27/21 documented as of this encounter Additional Source Comments The information contained in this document represents components of the legal health record. It is not the complete legal health record.[facility]
--- OUTSIDE RECORDS SUMMARY | 2025-05-09 11:30 | XMS_ITS | Encounter Summary ---
Author Organization [facility] Address [address] [place] [address] [place] [address] Phone Care Team Providers Care Cow Rider Name Role Phone Nilda Munson MD Primary Care Provider [phone] Jose Rob CNP Primary Care Provider Nilda Munson MD Primary Care Provider [phone] Unknown, Unknown Primary Care Provider Kristal Powell DO Primary Care Provider [phone] Unknown, Unknown Primary Care Provider Blank Yeh MD Primary Care Provider [phone] Encounter Details Date Type Department Care Team (Late st Contact Info) Description 05/22/2017 Ancillary Orders Virtual Department [address] [place] [address] Nilda Munson MD [address] [place] [address] [address] [place] [phone] [email or web address] Post-menopausal Social History Tobacco Use Types Packs/Day [...] documented as of this encounter Care Teams Cow Rider Relationship Specialty Start Date End Date Nilda Munson MD [email or web address] PCP - General 03/06/17 12/23/17 Jose Rob CNP [address] [place] [address], [address] [place] [address] [email or web address] PCP - General Family Medicine 12/24/17 01/25/18 Nilda Munson MD [email or web address] PCP - General Family Medicine 01/26/18 03/24/18 Unknown, Unknown, [address] [place] [address], [address] [place] [address] PCP - General 03/25/18 04/01/18 Kristal Loza DO [address] [place] [address] [email or web address] PCP - General Family Medicine 04/02/18 08/31/19 Unknown, Unknown, [address] [place] [address], [address] [place] [address] PCP - General 09/01/19 07/26/21 Blank Riggins MD [address] [place] [address] [email or web address] PCP - General Family Medicine 07/27/21 documented as of this encounter Additional Source Comments The information contained in this document represents components of the legal health record. It is not the complete legal health record.[facility]
--- OUTSIDE RECORDS SUMMARY | 2025-05-09 11:30 | XMS_ITS | Clinical Summary ---
Author Organization [facility] Address [address] [place] [address] Phone Care Team Providers Care [place] Former Machine Operator Name Role Phone Blank Riggins MD Primary [...] VACCINE (#1) 2024 COVID-19 VACCINE (1 - 2024-2 6 season) 2025 RSV VACCINE (1 - 1-dose [...] MEDICARE REPLACEMENT MEDICARE PART A & [place] [place] [address] MEDICARE REPLACEMENT MEDICARE PART A & B MEDICARE REPLACEMENT MEDICARE PART A & B MEDICARE REPLACEMENT MEDICARE PART A & B MEDICARE REPLACEMENT MEDICARE PART A & B MEDICARE REPLACEMENT MEDICARE PART A & B MEDICARE REPLACEMENT MEDICARE PART A & B MEDICARE REPLACEMENT MEDICARE PART A & B Care Teams [place] Former Machine Operator Relationship Specialty Start Date End Date Blank Riggins MD [address] [place] [address] [email or web address] PCP - General Family Medicine 07/27/21 Additional Source Comments The information contained in this document represents components of the legal health record. It is not the complete legal health record.[facility]
--- OUTSIDE RECORDS SUMMARY | 2025-05-09 11:30 | XMS_ITS | Clinical Summary ---
Author Organization [facility] Address [address] [place] [address] Care Team Providers Care Instructor Bridge Name Role Phone Jared Urbina MD Primary Care Provider [phone] Social History Tobacco Use Types Packs/Day Years Used Date Smoking Tobacco: Never Assessed Comments Unknown Sex and Gender Information Value Date Recorded Sex Assigned at Not on file Legal Sex Female 18:32 EST Gender Identity Not on file Sexual Orientation Not on file Plan of Treatment Health Maintenance Due Date Last Done Comments Hepatitis C Screen 1950 Fall Risk Screening 12/03/2016 COVID-19 Vaccine (2024- season) 2025 RSV Immunization ( o r 60+ Years) (1 - 1-dose 75+ series) 12/03/2026 Care Teams Instructor Bridge Relationship Specialty Start Date End Date Jared Urbina MD PCP - General 03/31/15
--- OUTSIDE RECORDS SUMMARY | 2025-05-09 11:30 | XMS_ITS | Encounter Summary ---
Author Organization [facility] Address [address] [facility] [address] [place] [address] Phone Care Team Providers Care Day Care Provider Name Role Phone Nilda Munson MD Primary Care Provider [phone] Jose Rob CNP Primary Care Provider Nilda Munson MD Primary Care Provider [phone] Unknown, Unknown Primary Care Provider Kristal Powell DO Primary Care Provider [phone] Unknown, Unknown Primary Care Provider Blank Yeh MD Primary Care Provider [phone] Encounter Details Date Type Department Care Team (Late st Contact Info) Description 08/07/2017 Ancillary Orders [facility] [address] [place] [address] Keturah Marquez PA-C [address] [place] [address] Orthopedics & Sports Medicine, [facility] [place] [address] [email or web address] Social History Tobacco Use Types Packs/Day Years [...] documented as of this encounter Care Teams Day Care Provider Relationship Specialty Start Date End Date Nilda Munson MD [email or web address] PCP - General 03/06/17 12/23/17 Jose Rob CNP [address] [place] [address], [address] [place] [address] [email or web address] PCP - General Family Medicine 12/24/17 01/25/18 Nilda Munson MD [email or web address] PCP - General Family Medicine 01/26/18 03/24/18 Unknown, Unknown, [address] [place] [address], [address] [place] [address] PCP - General 03/25/18 04/01/18 Kristal Loza DO [address] [place] [address] [email or web address] PCP - General Family Medicine 04/02/18 08/31/19 Unknown, Unknown, [address] [place] [address], [address] [place] [address] PCP - General 09/01/19 07/26/21 Blank Riggins MD [address] [place] [address] [email or web address] PCP - General Family Medicine 07/27/21 documented as of this encounter Additional Source Comments The information contained in this document represents components of the legal health record. It is not the complete legal health record.[facility]
--- OUTSIDE RECORDS SUMMARY | 2025-05-09 11:30 | XMS_ITS | Encounter Summary ---
Author Organization [facility] Address [address] [place] [address] [place] [address] Phone Care Team Providers Care Information Technology Consultant Name Role Phone Nilda Munson MD Primary Care Provider [phone] Jose Rob CNP Primary Care Provider Nilda Munson MD Primary Care Provider [phone] Unknown, Unknown Primary Care Provider Kristal Powell DO Primary Care Provider [phone] Unknown, Unknown Primary Care Provider Blank Yeh MD Primary Care Provider [phone] Encounter Details Date Type Department Care Team (Late st Contact Info) Description 08/07/2017 Ancillary Orders [address] [address] Keturah Marquez PA-C [address] [place] [address] Orthopedics & Sports Medicine, [facility] [place] [address] [email or web address] Right shoulder pain, unspecified chronicity Social History [...] documented as of this encounter Care Teams Information Technology Consultant Relationship Specialty Start Date End Date Nilda Munson MD [email or web address] PCP - General 03/06/17 12/23/17 Jose Rob, OMAR [address] [place] [address], [address] [place], [place] [id number] [email or web address] PCP - General Family Medicine 12/24/17 01/25/18 Nilda Munson MD [email or web address] PCP - General Family Medicine 01/26/18 03/24/18 Unknown, Radha, [address] [place] [address], [address] [place] [address] PCP - General 03/25/18 04/01/18 Kristal Loza DO [address] [place] [address] [email or web address] PCP - General Family Medicine 04/02/18 08/31/19 Unknown, Unknown, [address] [facility], [address] [place] [address] PCP - General 09/01/19 07/26/21 Blank [facility] [place] [address] [email or web address] PCP - General Family Medicine 07/27/21 documented as of this encounter Additional Source Comments The information contained in this document represents components of the legal health record. It is not the complete legal health record.[facility]
--- OUTSIDE RECORDS SUMMARY | 2025-05-09 11:30 | XMS_ITS | Encounter Summary ---
Author Organization [facility] Address [address] [place] [address] [place] [address] Phone Care Team Providers Care Manager Baby Name Role Phone Nilda Munson MD Primary Care Provider [phone] Unknown, Unknown Primary Care Provider Kristal Powell DO Primary Care Provider [phone] Unknown, Unknown Primary Care Provider Blank Yeh MD Primary Care Provider [phone] Encounter Details Date Type Department Care Team (Late st Contact Info) Description 02/05/2018 Transcribe Orders [facility] [address] [place] [address] Maribel Arroyo PA [address] [place] [address] [email or web address] Social History Tobacco Use Types Packs/Day Years [...] documented as of this encounter Care Teams Manager Baby Relationship Specialty Start Date End Date Nilda Munson MD [email or web address] PCP - General Family Medicine 01/26/18 03/24/18 Unknown, Unknown, PCP - General 03/25/18 04/01/18 Kristal Loza DO [address] [place] [address] [email or web address] PCP - General Family Medicine 04/02/18 08/31/19 Unknown, Unknown, PCP - General 09/01/19 07/26/21 Blank Riggins MD [address] [place] [address] [email or web address] PCP - General Family Medicine 07/27/21 documented as of this encounter Additional Source Comments The information contained in this document represents components of the legal health record. It is not the complete legal health record.[facility]
--- OUTSIDE RECORDS SUMMARY | 2025-05-09 11:30 | XMS_ITS | Encounter Summary ---
Author Organization [facility] Address [address] [facility] [address] [place] [address] Phone Care Team Providers Care Closing Specialist Name Role Phone Nilda Munson MD Primary Care Provider [phone] Jose Rob CNP Primary Care Provider Nilda Munson MD Primary Care Provider [phone] Unknown, Unknown Primary Care Provider Kristal Powell DO Primary Care Provider [phone] Unknown, Unknown Primary Care Provider Blank Yeh MD Primary Care Provider [phone] Encounter Details Date Type Department Care Team (Late st Contact Info) Description 03/08/2017 Ancillary Orders [facility] Obstetrics and Gynecology Clinic [address] [place] [address] Gretchen Osuna MD [address] [facility], [address] [place] [address] [email or web address] Visit for screening mammogram Social History Tobacco [...] documented as of this encounter Care Teams Closing Specialist Relationship Specialty Start Date End Date Nilda Munson MD [email or web address] PCP - General 03/06/17 12/23/17 Jose Rob, DEBURRING AND TOOLING MACHINE OPERATOR [address] [place] [address], [address] [place] [address] [email or web address] PCP - General Family Medicine 12/24/17 01/25/18 Nilda Munson MD [email or web address] PCP - General Family Medicine 01/26/18 03/24/18 Unknown, Unknown, [address] [place] [address], [address] [place] [address] PCP - General 03/25/18 04/01/18 Kristal Loza DO [address] [place] [address] [email or web address] PCP - General Family Medicine 04/02/18 08/31/19 Unknown, Unknown, [address] [place] [address], [address] [place] [address] PCP - General 09/01/19 07/26/21 Blank Riggins MD [address] [place] [address] [email or web address] PCP - General Family Medicine 07/27/21 documented as of this encounter Additional Source Comments The information contained in this document represents components of the legal health record. It is not the complete legal health record.[facility]
--- OUTSIDE RECORDS SUMMARY | 2025-05-09 11:31 | XMS_ITS | Clinical Summary ---
Author Organization [facility] Address [address] [place] [address] Care Team Providers Care Bookstore Manager Name Role Phone Terrie Boyer MD Primary Care Provider [phone] Allergies Active Allergy Reactions Criticality Noted Date [...] Health Care Proxy Review 05/19/2024 Influenza Vaccine (#1) 2024 COVID-19 Vaccine (1 - 2024-2 6 season) 2025 RSV Vaccine (60+ years old a nd patients) (1 - 1-dose 75+ series) 12/03/2026 Hepatitis B Vaccines Aged Out No long er eligible based on patient's age to complete this topic Insurance [facility] Care Teams Bookstore Manager Relationship Specialty Start Date End Date Terrie Boyer MD [address] [place] [address] PCP - General 09/03/20
== END 2025-05-09 09:48 | disposition home or self-care (01) ==
LOC: HO.HOP 09:48
PROVIDERS: Visit Provider Clinical Nurse Specialist Psychiatric/Mental Health
DX: F42.2 Mixed obsessional thoughts and acts (principal); F40.01 Agoraphobia with panic disorder; F43.10 Post-traumatic stress disorder, unspecified; F33.41 Major depressive disorder, recurrent, in partial remission
CPT/HCPCS: 99214